=== PATIENT | female | born 1960 | race Caucasian/White ===

== ENCOUNTER 2018-02-02 08:45 | Inpatient (IN) ==
[2018-02-02] MEDS ORDERED: 0.9 % Sodium Chloride 1,000 ML IVC ONE ×3 (08:52→10:55)
--- NOTE | 2018-02-02 09:18 | Emergency Department Note ---
Disposition Clinical Impression: Hypokalemia, Hypomagnesemia Pneumonia Qualifiers: Pneumonia type: due to unspecified organism Laterality: unspecified laterality Lung location: unspecified part of lung Qualified Code(s): J18.9 - Pneumonia, unspecified organism Fever Qualifiers: Fever type: unspecified Qualified Code(s): R50.9 - Fever, unspecified Disposition: Admitted As Inpatient Condition: Fair Fever HPI - General Chief Complaint: ED Fever Stated Complaint: Fever Cancer Pt Time Seen by Provider: 02/02/18 08:51 Source: patient, family Limitations: no limitations Nursing Notes Reviewed: Yes Vital Signs Reviewed: Yes - History of Present Illness HPI Narrative: Patient presents today for evaluation of fever. The patient has a history of melanoma with metastasis. Patient has been undergoing immunotherapy at the [facility] for treatment. Last treatment was earlier in the week. She states that she was told to come to the hospital if she developed fevers. Fever of 101 at home. Patient has also complained of some generalized malice and fatigue. Patient states that she has not had fevers or chills or cough or chest pain or abdominal pain. She has had some mild diarrhea without blood. No nausea or vomiting. Patient has not had cough or productive sputum. Abdomen is soft and nontender. No specific etiology to correlate with fever. She is tachycardic and mildly hypotensive. Fluids have been ordered as well as further blood work and x-ray investigation into etiology. - Related Data Home Medications Medication Instructions Recorded Confirmed Acetaminophen [Tylenol] 325 - 650 mg PO Q4HR PRN 02/02/18 02/02/18 Albuterol Sulfate [Proair Hfa] 1 puff IH Q4H PRN 02/02/18 02/02/18 Budesonide/Formoterol 160/4.5 2 puff IH BIDR 02/02/18 02/02/18 [Symbicort 160/4.5] Calcium Carb, Citrate/Vit D3 1 tab PO DAILY 02/02/18 02/02/18 [Calcium + D3 ER Tablet] Citalopram [CeleXA] 20 mg PO DAILY 02/02/18 02/02/18 Ibuprofen [Ibu] 600 mg PO Q8H PRN 02/02/18 02/02/18 Ipilimumab [Yervoy] 110 ml IV ONCE 02/02/18 02/02/18 Metformin HCl [Metformin HCl] 1,000 mg PO BIDWM 02/02/18 02/02/18 Omeprazole [PriLOSEC] 20 mg PO DAILY 02/02/18 02/02/18 Triamcinolone Acet 0.1% CRM 1 appl TP BID 02/02/18 02/02/18 [Kenalog] Allergies Allergy/AdvReac Type Severity Reaction Status Date / Time No Known Allergies Allergy Verified 02/02/18 10:43 Review of Systems: As Per HPI Constitutional: Reports: fever, weakness Cardiovascular: Denies: chest pain, palpitations Respiratory: Denies: cough, dyspnea Gastrointestinal: Reports: diarrhea. Denies: abdominal pain, nausea Genitourinary: Denies: urgency, dysuria Musculoskeletal: Denies: back pain Integumentary: Denies: rash, abrasion Neurological: Reports: headache (Posterior headache that is tenderness to the left paraspinal cervical muscles) Fever PMH - Past Medical History Medical history: Reports: cancer, diabetes, other Psychiatric history: Reports: no psych history - Social History Smoking Status: Never smoker Alcohol use: Reports: none Drug use: Reports: none Physical Exam General: Well appearing, nontoxic, no acute distress Head: Normocephalic Atraumatic Eyes: PERRL, EOMI ENT: Airway patent, no stridor Neck: supple, no meningismus Chest: Lungs clear to auscultation bilateral Cardiac: Regular rhythm, tachycardia Abdomen: soft, nontender, nondistended; no guarding, rebound, or tenderness to percussion Musculoskeletal: Calves symmetric, nontender, no significant edema. Skin: No rash, normal skin tone Neuro: Alert and Oriented to person, place, and time; No focal deficit, - General Limitations: no limitations General appearance: alert, in no apparent distress Course - Reevaluation(s) Reevaluation #1: Patient reevaluated. Patient stable. No shortness of breath and no chest pain. Patient is on immunosuppressive therapy. Mildly elevated lactate as well as elevated troponin. Diffuse changes on EKG more consistent with loculated abnormality than ACS. Given the nature of the symptoms and fever infectious process rather than ACS is more likely. Heparin has not been started. Recommend trending troponins. Potassium and magnesium replacement have been initiated in the ED. Patient has received fluids as well as broad- spectrum antibiotics, vanc, Zosyn, Levaquin. - Consultations Consultation #1: Discussed with hospitalist. Patient accepted for admission. Vital Signs Temperature 100.5 F H 02/02/18 08:47 Pulse Rate 117 02/02/18 08:47 Respiratory Rate 20 02/02/18 08:47 Blood Pressure 98/60 02/02/18 08:47 O2 Sat by Pulse Oximetry 99 02/02/18 08:47 Temperature 98.6 F 02/02/18 17:49 Pulse Rate 65 02/02/18 17:49 Respiratory Rate 18 02/02/18 17:49 Blood Pressure 103/62 02/02/18 17:49 O2 Sat by Pulse Oximetry 98 02/02/18 17:49 Oxygen Delivery Oxygen Delivery Room Air Fever - Medical Records Medical records reviewed: Yes I reviewed the patient's medical records. - Lab Data Lab results reviewed: Yes I reviewed the patient's lab results. Result diagrams: 02/02/18 09:21 02/02/18 09:21 Lab Results 02/02/18 02/02/18 02/02/18 Range/Units 09:21 09:21 09:21 WBC 5.6 (4.3-11.1) K/mcL RBC 5.64 H (3.82-4.97) M/mcL Hgb 14.4 (11.5-15.4) g/dL Hct 42.2 (35.3-44.9) % MCV 74.8 L (83.0-100.0) fL MCH 25.5 L (28.0-33.3) pg MCHC 34.1 (31.6-35.5) g/dL RDW 17.2 H (11.5-14.5) % Plt Count 101 L (140-400) K/mcL MPV 10.2 (9.4-12.4) fL Immature Gran % 0.7 (0-4) % Seg Neutrophils % 63.7 % Lymphocytes % 25.8 % Monocytes % 8.1 % Eosinophils % 1.3 % Basophils % 0.4 % Neutrophils # 3.6 (1.6-8.9) K/mcL Lymphocytes # 1.4 (0.6-4.6) K/mcL Monocytes # 0.5 (0.0-1.3) K/mcL Eosinophils # 0.1 (0.0-0.6) K/mcL Basophils # 0.0 (0.0-0.2) K/mcL Immature Plt Fraction 5.1 (1.1-6.1) % PT 13.1 H (9.4-12.1) Seconds INR 1.2 Sodium 131 L (136-145) mEq/L Potassium 2.3 L* (3.5-5.1) mEq/L Chloride 93 L (98-107) mEq/L Carbon Dioxide 28 (23-29) mEq/L BUN 6 (6-20) mg/dL Creatinine 0.99 (0.60-1.20) mg/dL Est GFR ( Amer) > 60 (> 60) Est GFR (Non-Af Amer) 58 L (> 60) BUN/Creatinine Ratio 6 (6-26) Glucose 162 H (70-105) mg/dL Est Mean Plasma Glucose mg/dl Hemoglobin A1c ( - 5.6) % Calculated Osmolality 273 L (280-300) Lactic Acid (0.5-2.2) mmol/L Calcium 8.3 L (8.6-10.3) mg/dL Phosphorus 1.1 L (2.7-4.5) mg/dL Magnesium 1.4 L (1.6-2.6) mg/dL Total Bilirubin 1.2 H (0.3-1.0) mg/dL Direct Bilirubin 0.3 H (0.0-0.2) mg/dL Indirect Bilirubin 0.9 (0.0-1.2) mg/dL AST 38 (13-39) Units/L ALT 49 (7-52) Units/L Alkaline Phosphatase 85 (34-104) Units/L Troponin I 0.05 H* (< 0.04) ng/mL Serum Total Protein 6.7 (6.4-8.9) g/dL Albumin 3.7 (3.5-5.7) g/dL Globulin 3.0 (2.4-3.5) g/dL Albumin/Globulin Ratio 1.2 (1.1-2.2) 02/02/18 02/02/18 Range/Units 09:21 09:21 WBC (4.3-11.1) K/mcL RBC (3.82-4.97) M/mcL Hgb (11.5-15.4) g/dL Hct (35.3-44.9) % MCV (83.0-100.0) fL MCH (28.0-33.3) pg MCHC (31.6-35.5) g/dL RDW (11.5-14.5) % Plt Count (140-400) K/mcL MPV (9.4-12.4) fL Immature Gran % (0-4) % Seg Neutrophils % % Lymphocytes % % Monocytes % % Eosinophils % % Basophils % % Neutrophils # (1.6-8.9) K/mcL Lymphocytes # (0.6-4.6) K/mcL Monocytes # (0.0-1.3) K/mcL Eosinophils # (0.0-0.6) K/mcL Basophils # (0.0-0.2) K/mcL Immature Plt Fraction (1.1-6.1) % PT (9.4-12.1) Seconds INR Sodium (136-145) mEq/L Potassium (3.5-5.1) mEq/L Chloride (98-107) mEq/L Carbon Dioxide (23-29) mEq/L BUN (6-20) mg/dL Creatinine (0.60-1.20) mg/dL Est GFR ( Amer) (> 60) Est GFR (Non-Af Amer) (> 60) BUN/Creatinine Ratio (6-26) Glucose (70-105) mg/dL Est Mean Plasma Glucose 166 mg/dl Hemoglobin A1c 7.4 H ( - 5.6) % Calculated Osmolality (280-300) Lactic Acid 2.4 H (0.5-2.2) mmol/L Calcium (8.6-10.3) mg/dL Phosphorus (2.7-4.5) mg/dL Magnesium (1.6-2.6) mg/dL Total Bilirubin (0.3-1.0) mg/dL Direct Bilirubin (0.0-0.2) mg/dL Indirect Bilirubin (0.0-1.2) mg/dL AST (13-39) Units/L ALT (7-52) Units/L Alkaline Phosphatase (34-104) Units/L Troponin I (< 0.04) ng/mL Serum Total Protein (6.4-8.9) g/dL Albumin (3.5-5.7) g/dL Globulin (2.4-3.5) g/dL Albumin/Globulin Ratio (1.1-2.2) - Radiology Data Radiology results reviewed: Yes I reviewed the patient's radiology results. - EKG Data EKG attestation: Yes I reviewed and interpreted this EKG. EKG results narrative: EKG shows diffuse T-wave inversion. EKG shows sinus tachycardia with a rate of 108. MI interval 147. QTC C467. No old EKG at this time. Diffuse changes more likely associated with hypokalemia then ACS. No chest pain.
[2018-02-02 09:30] LABS: Basophils % 0.4 %; Eosinophils # 0.1 K/mcL (0.0-0.6); Eosinophils % 1.3 %; Hematocrit 42.2 % (35.3-44.9); Hemoglobin 14.4 g/dL (11.5-15.4); Immature Granulocytes % 0.7 % (0-4); Immature Platelets 5.1 % (1.1-6.1); Lymphocytes # 1.4 K/mcL (0.6-4.6); Lymphocytes % 25.8 %; Mean Corpuscular HGB Conc 34.1 g/dL (31.6-35.5); Mean Corpuscular Hemoglobin 25.5 pg (28.0-33.3); Mean Corpuscular Volume 74.8 fL (83.0-100.0); Mean Platelet Volume 10.2 fL (9.4-12.4); Monocytes # 0.5 K/mcL (0.0-1.3); Monocytes % 8.1 %; Neutrophils # 3.6 K/mcL (1.6-8.9); Platelet Count 101 K/mcL (140-400); Red Blood Count 5.64 M/mcL (3.82-4.97); Red Cell Distribution Width 17.2 % (11.5-14.5); Segmented Neutrophils % 63.7 %
[2018-02-02 09:34] LABS: INR 1.2; Prothrombin Time 13.1 Seconds (9.4-12.1)
[2018-02-02 09:52] LABS: Troponin I 0.05 ng/mL (< 0.04)
[2018-02-02 10:03] LABS: Alanine Aminotransferase 49 Units/L (7-52); Albumin 3.7 g/dL (3.5-5.7); Albumin/Globulin Ratio 1.2 (1.1-2.2); Alkaline Phosphatase 85 Units/L (34-104); Aspartate Amino Transferase 38 Units/L (13-39); BUN/Creatinine Ratio 6 (6-26); Bilirubin,Direct 0.3 mg/dL (0.0-0.2); Bilirubin,Indirect 0.9 mg/dL (0.0-1.2); Bilirubin,Total 1.2 mg/dL (0.3-1.0); Blood Urea Nitrogen 6 mg/dL (6-20); Calcium 8.3 mg/dL (8.6-10.3); Carbon Dioxide 28 mEq/L (23-29); Chloride 93 mEq/L (98-107); Glucose 162 mg/dL (70-105); Magnesium 1.4 mg/dL (1.6-2.6); Osmolality,Calculated 273 (280-300); Phosphorous 1.1 mg/dL (2.7-4.5); Sodium 131 mEq/L (136-145); Total Protein 6.7 g/dL (6.4-8.9); eGFR For Non-African Americans 58 (> 60)
[2018-02-02 10:07] LABS: Potassium 2.3 mEq/L (3.5-5.1)
[2018-02-02] MEDS ORDERED: Aspirin 325 MG TABLET PO ONE (10:16)
[2018-02-02] MEDS ORDERED: Piperacillin/Tazobactam 3.375 GM in 0.9 % Sodium Chloride Mini Bag 100 ML IVPB ONE (10:18)
[2018-02-02] MEDS ORDERED: Levofloxacin 750 MG/150 ML 750 MG/150 ML BAG IVPB ONE (10:18)
[2018-02-02] MEDS ORDERED: Naloxone 0.4 MG/ML INJ IVP PRN (11:45)
[2018-02-02] MEDS ORDERED: Ibuprofen 400 MG TABLET PO PRN (11:45)
--- NOTE | 2018-02-02 12:07 | Internal Med History&Physical ---
Date of Encounter: 02/02/18 Time of Encounter: 11:20 Internal Medicine - H&P: HPI Chief complaint: Fevers, chills Admitted From: Emergency Dept Plans for Post Hospital Care: Home History of present illness: Ms. Orellana is a 57 year old female patient with a history of melanoma versus immunotherapy with her most recent dose on Monday presented to the ER with fevers and chills. She also has a history of diabetes. She denies any cough or shortness of breath. No chest pain or palpitations. She feels weak and tired. No nausea or vomiting. No abdominal pain. No dysuria. Past Med Surg Social Fam HX - Past Medical History Attestation: Yes The following information was validated with the patient. Source: patient Medical history: cancer (Melanoma), diabetes, other Psychiatric history: no psych history - Past Surgical History Additional surgical history: lymph node biopsy - Social History Smoking Status: Never smoker Smokeless Tobacco Status: No Alcohol use: none Drug use: none - Additional Family History Additional family history: Family history reviewed and found to be noncontributory at this time Internal Medicine - H&P: Meds Acetaminophen [Tylenol] 325 - 650 mg PO Q4HR PRN 02/02/18 [History] Albuterol Sulfate [Proair Hfa] 1 puff IH Q4H PRN 02/02/18 [History] Budesonide/Formoterol 160/4.5 [Symbicort 160/4.5] 2 puff IH BIDR 02/02/18 [ History] Calcium Carb, Citrate/Vit D3 [Calcium + D3 ER Tablet] 1 tab PO DAILY 02/02/18 [ History] Citalopram [CeleXA] 20 mg PO DAILY 02/02/18 [History] Ibuprofen [Ibu] 600 mg PO Q8H PRN 02/02/18 [History] Ipilimumab [Yervoy] 110 ml IV ONCE 02/02/18 [History] Metformin HCl [Metformin HCl] 1,000 mg PO BIDWM 02/02/18 [History] Omeprazole [PriLOSEC] 20 mg PO DAILY 02/02/18 [History] Triamcinolone Acet 0.1% CRM [Kenalog] 1 appl TP BID 02/02/18 [History] 3 Allergy/AdvReac Type Severity Reaction Status Date / Time No Known Allergies Allergy Verified 02/02/18 10:43 All Systems PM: A 10-system review of systems was performed and is negative for pertinent findings except as documented above in the HPI. - Constitutional Constitutional: chills, fatigue, fever(s), malaise - EENT Eyes: no change in vision, no discharge, no pain, no photophobia Ears: no ear discharge, no ear pain, no tinnitus Nose, mouth and throat: no dysphagia, no nasal discharge, no neck pain, no sore throat - Cardiovascular Cardiovascular ROS IM: no chest pain, no diaphoresis, no dyspnea, no lightheadedness, no palpitations, no syncope - Respiratory Respiratory: no cough, no dyspnea, no wheezing, no excessive phlegm production - Gastrointestinal Gastrointestinal: no abdominal pain, no diarrhea, no hematemesis, no hematochezia, no melena, no nausea, no vomiting - Genitourinary Genitourinary: no change in urinary stream, no dysuria, no flank pain, no hematuria Additional comments: Vulvar melanoma - Musculoskeletal Musculoskeletal ROS IM: no numbness, no tingling - Integumentary Integumentary IM: no rash, no unusual bruising - Neurological Neurological ROS: no confusion, no convulsions, no focal weakness, no numbness, no tingling, no tremor(s) - Hematologic/Lymphatic Hematologic/Lymphatic: no easy bruising - Constitutional Vitals: Temp Pulse Resp BP Pulse Ox 98.9 F 98 18 104/47 98 02/02/18 11:03 02/02/18 11:03 02/02/18 11:03 02/02/18 11:03 02/02/18 11:03 General appearance: Present: cooperative, A&O X 3, answers questions appropriately Exam: . - Neck Neck exam general surgery: Present: supple, trachea midline. Absent: lymphadenopathy - Respiratory Respiratory exam: Absent: accessory muscle use, prolonged expiratory phase, rales, rhonchi, wheezes - Cardiovascular Cardiovascular exam: Present: RRR, +S1, +S2, tachycardia. Absent: diastolic murmur, gallop, rubs, systolic murmur - GI/Abdominal GI/Abdominal exam: Present: normal bowel sounds, soft, no peritoneal signs. Absent: distended, tenderness - Extremities Exam Extremities exam: Present: warm, radial pulses palpable and symmetrical. Absent : calf tenderness, cyanotic, pedal edema - Neurological Exam Neurological exam: Present: alert, CN II-XII intact, oriented X3, no focal deficits, strengths equal and symetr throughout. Absent: facial droop, speech deficit - Skin Skin exam: Present: dry, intact Internal Med - H&P Results - Labs CBC & Chem 7: 02/02/18 09:21 02/02/18 09:21 - Impressions Impressions Chest X-Ray 02/02/18 08:52 IMPRESSION: Suspected right lower lobe pneumonia. Follow-up imaging is recommended after treatment to ensure resolution. D/ / Alvarez Moran MD / Alvarez Moran MD Interpreting Provider: Alvarez Moran MD - Assessment and plan (1) Sepsis Current Visit: Yes Status: Suspected Assessment and plan: Patient with sepsis related to right lower lobe pneumonia. We will treat with IV antibiotics. Follow blood cultures. Patient does not have an elevated WBC count most likely related to recent immunotherapy. She continues to have fevers. Will treat symptomatically. High risk for complications. Qualifiers: Sepsis type: Pneumococcus Qualified Code(s): A40.3 - Sepsis due to Streptococcus pneumoniae (2) Malignant melanoma Current Visit: Yes Status: Acute Assessment and plan: Of vulvar region with metastases to the lymph nodes. Receiving immunotherapy at [facility]. Follow-up outpatient after discharge. Qualifiers: Melanoma location: unspecified site Qualified Code(s): C43.9 - Malignant melanoma of skin, unspecified (3) Diabetes mellitus Current Visit: Yes Status: Chronic Assessment and plan: Monitor blood sugars. Place patient on diabetic diet and sliding scale insulin. Qualifiers: Diabetes mellitus type: type 2 Diabetes mellitus chcf insulin use: without chcf use Diabetes mellitus complication status: without complication Qualified Code(s): E11.9 - Type 2 diabetes mellitus without complications (4) Pneumonia Current Visit: Yes Status: Suspected Assessment and plan: Continue IV antibiotics. Patient will be on broad-spectrum antibiotics due to underlying cancer and frequent healthcare visits. Follow blood culture results. Check urine Legionella and streptococcal antigens. DVT prophylaxis with subcutaneous heparin. Qualifiers: Pneumonia type: due to Pneumococcus Laterality: left Lung location: lower lobe of lung Qualified Code(s): J13 - Pneumonia due to Streptococcus pneumoniae (5) Hypokalemia Current Visit: Yes Status: Acute Assessment and plan: Will replete. - Time Spent With Patient Total time spent is greater than 50% in coordination of care (as documented) at patient's floor/unit and/or counseling patient:
[2018-02-02] MEDS: Levofloxacin 750 MG/150 ML 750 MG/150 ML BAG IVPB SCH (13:14)
[2018-02-02] MEDS ORDERED: D5% in Water 1,000 ML IVC PRN (14:13)
[2018-02-02] MEDS ORDERED: Dextrose Gel 15 GM/37.5 ML TUBE PO PRN ×2 (14:13)
[2018-02-02 14:41] LABS: Estimated Average Glucose 166 mg/dl; Hemoglobin A1C 7.4 %
[2018-02-02] MEDS: 0.9 % Sodium Chloride w KCl 40 MEQ/1,000 ML MLS IVC SCH (15:24)
[2018-02-02] MEDS: Piperacillin/Tazobactam 3.375 GM in 0.9 % Sodium Chloride Mini Bag 100 ML IVPB SCH (16:31)
[2018-02-02] MEDS: Insulin LISPRO 300 UNITS/3 ML VIAL SQ SCH ×2 (16:32→21:17)
[2018-02-02] MEDS: *HR* Heparin 5,000 UNIT/ML VIAL SQ SCH (16:59)
[2018-02-02 17:00] LABS: Adenovirus F 40/41 PCR Not detected (Not detect); Astrovirus PCR Not detected (Not detect); C.difficile Toxin A/B by PCR Not detected (Not detect); Campylobacter by PCR Not detected (Not detect); Cryptosporidium by PCR Not detected (Not detect); Cyclospora cayetanensis PCR Not detected (Not detect); E. coli O157 by PCR Not detected (Not detect); Entamoeba histolytica PCR Not detected (Not detect); Enteroaggregative E.coli(EAEC) Not detected (Not detect); Enteropathogenic E.coli(EPEC) Not detected (Not detect); Enterotoxigenic E.coli (ETEC) Not detected (Not detect); Giardia lamblia PCR Not detected (Not detect); Norovirus GI/GII PCR Not detected (Not detect); Plesiomonas shigelloides PCR Not detected (Not detect); Rotavirus A PCR Not detected (Not detect); Salmonella PCR Not detected (Not detect); Sapovirus PCR Not detected (Not detect); Shig/EnteroinvasiveE coli EIEC Not detected (Not detect); Shigalike tox-prod E coli STEC Not detected (Not detect); Vibrio PCR Not detected (Not detect); Vibrio cholerae PCR Not detected (Not detect); Yersinia enterocolitica PCR Not detected (Not detect)
[2018-02-02] MEDS: Acetaminophen 325 MG TABLET PO PRN (20:12)
[2018-02-02 22:53] LABS: Bilirubin,Urine Negative (Negative); Blood,Urine Negative (Negative); Clarity,Urine Clear (Clear); Color,Urine Yellow (Yellow); Glucose,Urine (UA) Normal (Normal); Ketones,Urine Negative (Negative); Leukocyte Esterase,Urine Negative (Negative); Nitrite,Urine Negative (Negative); Protein,Urine Negative (Neg-Trace); Specific Gravity,Urine 1.018 (1.010-1.025); Urobilinogen,Urine Normal (Normal)
[2018-02-03] MEDS: Piperacillin/Tazobactam 3.375 GM in 0.9 % Sodium Chloride Mini Bag 100 ML IVPB SCH ×3 (00:32→17:03)
[2018-02-03] MEDS ORDERED: 0.9 % Sodium Chloride 1,000 ML ONE (00:56)
[2018-02-03] MEDS ORDERED: 0.9 % Sodium Chloride 1,000 ML IVC ONE (01:16)
[2018-02-03] MEDS: 0.9 % Sodium Chloride w KCl 40 MEQ/1,000 ML MLS IVC SCH (02:43)
[2018-02-03 02:59] LABS: Monocytes % 9.2 %; Red Cell Distribution Width 17.4 % (11.5-14.5)
[2018-02-03 03:01] LABS: Eosinophils # 0.1 K/mcL (0.0-0.6); Eosinophils % 2.2 %; Hemoglobin 10.6 g/dL (11.5-15.4); Immature Granulocytes % 1.1 % (0-4); Immature Platelets 3.4 % (1.1-6.1); Lymphocytes # 0.5 K/mcL (0.6-4.6); Lymphocytes % 13.7 %; Mean Corpuscular HGB Conc 33.1 g/dL (31.6-35.5); Mean Corpuscular Hemoglobin 25.4 pg (28.0-33.3); Mean Corpuscular Volume 76.7 fL (83.0-100.0); Mean Platelet Volume 10.1 fL (9.4-12.4); Monocytes # 0.3 K/mcL (0.0-1.3); Red Blood Count 4.17 M/mcL (3.82-4.97); Segmented Neutrophils % 73.8 %
[2018-02-03] MEDS ORDERED: 0.9 % Sodium Chloride 500 ML IVC ONE (03:15)
--- NOTE | 2018-02-03 03:19 | Event Note ---
Date of Encounter: 02/03/18 Time of Encounter: 03:14 Called to reassess patient for sepsis. I saw patient earlier at RN request. Patient spiked a fever and her BP dropped to the 70's earlier. She responded to a fluid bolus of 1 L NS. When I last saw her, her BP was 116/84. She was well perfused at that time. I was called again a few minutes ago with low BP down to the 70/40's. Currently, she is 84/50. I ordered 500 cc NS bolus and am moving her to ICU for CVC placement and pressor support. PER RN, she has had little UOP since admission. I discussed with patient and daughter. They are agreeable with plan.
[2018-02-03 03:25] LABS: Neutrophils # 2.7 K/mcL (1.6-8.9); Platelet Count 74 K/mcL (140-400)
[2018-02-03 03:32] LABS: Platelet Estimate Slight Decrease (Normal)
[2018-02-03 04:35] LABS: BUN/Creatinine Ratio 4 (6-26); Blood Urea Nitrogen 4 mg/dL (6-20); Carbon Dioxide 19 mEq/L (23-29); Chloride 111 mEq/L (98-107); Glucose 104 mg/dL (70-105); Osmolality,Calculated 285 (280-300); Potassium 2.9 mEq/L (3.5-5.1); Sodium 139 mEq/L (136-145); eGFR For Non-African Americans > 60 (> 60)
--- NOTE | 2018-02-03 04:38 | Procedure Note ---
<Ezequiel Hunt - Last Filed: 02/03/18 04:34> Date of procedure: 02/03/18 Pre-op diagnosis: Septic shock Post-op diagnosis: same Procedure: Procedure Note: Central Venous Catheter Insertion Indication: Septic shock Attending Physician: Henry Causey Indication: This is a 57 year-old woman with hypotension due to sepsis related to a right middle lobe pneumonia. Consent: Detailed explanation of the procedure, treatment options, risks including but not limited to infection and bleeding, and benefits were explained to the patient and the patient's daughter. A written informed consent was obtained. Technique: A time out was preformed identifying the correct procedure, the correct location with the nursing staff. The right groin was prepped with 2% chlorhexidine and draped with a full length sterile sheet in the usual fashion. The right femoral vein was accessed under ultrasound guidance with an 18 gauge thin wall needle. A triple lumen was inserted via the seldinger technique. Blood was withdrawn from all lumens and flushed with normal saline. The catheter was sutured in place and a sterile dressing was applied over the site prior to removal of drapes. The patient tolerated the procedure well and there were no complications. EBL: 5mL Complication: None Surgeon: Ezequiel Hunt Was there an diet assistant present: Yes Enterprise Application Administrator: Kip Parekh Estimated blood loss (cc): 5 Specimen: n/a Pathology: none sent Condition: stable Disposition: ICU <Henry Causey - Last Filed: 02/03/18 05:47> Procedure: I requested the CVC be placed by Dr. Hunt for treatment of sepsis. I was present during the entire procedure, witnessed and supervised the procedure. Dr. Hunt performed the procedure skillfully without any difficulty and patient tolerated procedure well.
[2018-02-03] MEDS ORDERED: Norepinephrine 4 MG in D5% in Water 250 ML IVC SCH (04:45)
[2018-02-03 05:16] LABS: BUN/Creatinine Ratio 4 (6-26); Blood Urea Nitrogen 4 mg/dL (6-20); Calcium 6.8 mg/dL (8.6-10.3); Carbon Dioxide 18 mEq/L (23-29); Chloride 113 mEq/L (98-107); Glucose 114 mg/dL (70-105); Osmolality,Calculated 286 (280-300); Potassium 3.2 mEq/L (3.5-5.1); Sodium 139 mEq/L (136-145); eGFR For Non-African Americans 59 (> 60)
[2018-02-03] MEDS ORDERED: Potassium Phosphate 44 MEQ in 0.9 % Sodium Chloride 250 ML IVPB PRN (06:05)
[2018-02-03] MEDS: *HR* Heparin 5,000 UNIT/ML VIAL SQ SCH (06:07)
[2018-02-03] MEDS: Potassium Chloride 40 MEQ/200 ML BAG IVPB PRN ×2 (06:33→07:38)
[2018-02-03 06:42] LABS: Phosphorous 1.5 mg/dL (2.7-4.5)
[2018-02-03 06:45] LABS: VBG Ionized Calcium 1.05 mmol/L (1.15-1.35)
--- NOTE | 2018-02-03 09:29 | Electrocardiograph Report ---
[address] [place], [place] [address] Test Date: 2018-02-02 Pat Name: Abril Orellana Department: [id number] Room: [facility] Gender: Service Coordinator: : 1960 Requested By: [id number] Order Number: [id number] Reading MD: Lucas Clemons Measurements Intervals [place] Rate: 108 P: 63 CA: 147 QRS: 56 QRSD: 79 T: 247 QT: 348 QTc: 467 Interpretive Statements Sinus tachycardia Anterolateral and inferior ST-T changes suggests ischemia Electronically Signed On 02-03-2018 9:28:05 EDT by Lucas Clemons
[2018-02-03] MEDS: Insulin LISPRO 300 UNITS/3 ML VIAL SQ SCH ×4 (09:36→21:00)
[2018-02-03] MEDS ORDERED: Ondansetron 4 MG/2 ML VIAL ONE (10:06)
[2018-02-03] MEDS: Ringers Solution, Lactated 1,000 ML IVC SCH (10:08)
[2018-02-03] MEDS: Ondansetron 4 MG/2 ML VIAL IVP PRN ×2 (10:44→21:17)
--- NOTE | 2018-02-03 11:36 | Oncology Inp Consult Note ---
Date of Encounter: 02/03/18 Time of Encounter: 12:00 Assessment and Plan (1) Malignant melanoma Status: Acute Assessment and plan: Of the labia status post surgery, adjuvant therapy upon progression patient is receiving yervoy/nivolumab at [facility], s/p wk4 of Yervoy last monday. She was previously treated with adjuvant whole absence of late last year. She is noted to have progression according to [facility] with lymphadenopathy in CT imaging. She is scheduled for 4th wk next Monday. Ct imaging was planned after that to assess response, per patient. Qualifiers: Melanoma location: unspecified site Qualified Code(s): C43.9 - Malignant melanoma of skin, unspecified (2) Diarrhea Status: Acute Assessment and plan: Loose bowel movements, nonbloody, patient was needing pressors due to dehydration and possible infection, stool culture, C. difficile to be sent. Since she is off pressors and clinically stable we will monitor her. If this should get worse we will start her on steroid dose. Plan d/w patient and her family who understands risk benefits of treatment. Qualifiers: Diarrhea type: unspecified type Qualified Code(s): R19.7 - Diarrhea, unspecified (3) Pneumonia Status: Acute Assessment and plan: RLL pneumonia, continue antibiotics for pneumonia, possible sepsis Qualifiers: Pneumonia type: due to unspecified organism Laterality: unspecified laterality Lung location: unspecified part of lung Qualified Code(s): J18.9 - Pneumonia, unspecified organism (4) Pancytopenia Problem details: Possibly sec to fever, infection/sepsis, demargination. Status: Acute - Data of Consult Requesting Physician: Fabi Mata MD Primary Care Provider: Leta Akins MD - Consult Narrative Reason for consult: melanoma History of present illness: Ms. Orellana is a 57 year old female with a history of malignant melanoma of the labia, diagnosed during [facility] exam October 2015. She underwent a bilateral vulvectomy number of 2016 with left lymph node in the groin excised by Dr. Veronika Elizondo, pathology showing 3.2 x 3.1 x 2.2 cm, 0/[address], positive ulceration, mitotic count 20/mm2. She underwent adjuvant nivolumab until 12/27, according to [facility] records. Per patient she had some evidence of progression in the CT scan and a treatment was changed to include wkly Yervoy, s /p wk 3 last Monday. [facility] records she had prior episodes of diarrhea. Patient reports that since she had fever, malaise, possible dehydration from diarrhea. No cough expectoration. Chest x-ray showed right lower lobe pneumonia she is started on antibiotics Zosyn, vancomycin, levofloxacin. Patient denies any abdominal pain she denies any blood in stools. Due to hypotension patient was in the intensive care unit she was on pressors, currently off, Oncconsulted for possible immunotherapy side effect diary and need for steroids. Past Med Surg Social Fam HX - Past Medical History Medical history: cancer, diabetes, other Additional medical history: melonoma, low platlets Psychiatric history: no psych history - Past Surgical History Additional surgical history: lymph node biopsy - Social History Smoking Status: Never smoker Smokeless Tobacco Status: No Alcohol use: none Drug use: none Medications and Allergies Acetaminophen [Tylenol] 325 - 650 mg PO Q4HR PRN 02/02/18 [History] Albuterol Sulfate [Proair Hfa] 1 puff IH Q4H PRN 02/02/18 [History] Budesonide/Formoterol 160/4.5 [Symbicort 160/4.5] 2 puff IH BIDR 02/02/18 [ History] Calcium Carb, Citrate/Vit D3 [Calcium + D3 ER Tablet] 1 tab PO DAILY 02/02/18 [ History] Citalopram [CeleXA] 20 mg PO DAILY 02/02/18 [History] Ibuprofen [Ibu] 600 mg PO Q8H PRN 02/02/18 [History] Ipilimumab [Yervoy] 110 ml IV ONCE 02/02/18 [History] Metformin HCl [Metformin HCl] 1,000 mg PO BIDWM 02/02/18 [History] Omeprazole [PriLOSEC] 20 mg PO DAILY 02/02/18 [History] Triamcinolone Acet 0.1% CRM [Kenalog] 1 appl TP BID 02/02/18 [History] 3 Allergy/AdvReac Type Severity Reaction Status Date / Time No Known Allergies Allergy Verified 02/02/18 10:43 Review of systems: as in HPI Oncology - Exam - Constitutional Vitals: Temp Pulse Resp BP Pulse Ox 98.0 F 86 15 101/43 100 02/03/18 08:00 02/03/18 09:00 02/03/18 09:00 02/03/18 09:00 02/03/18 09:00 General appearance: no acute distress - Head Head exam: Present: atraumatic, normal inspection - Eye Eye exam: Present: sclera anicteric - ENT ENT exam: Present: mucous membranes moist - Respiratory Respiratory exam: Present: CTAB - Cardiovascular Cardiovascular exam: Present: +S1, +S2 - GI/Abdominal GI/Abdominal exam: Present: normal bowel sounds, soft - Extremities Exam Extremities exam: Present: normal inspection - Neurological Exam Neurological exam: Present: alert, CN II-XII intact, oriented X3 - Psychiatric Psychiatric exam: Present: normal affect - Skin Skin exam: Present: dry, normal color Oncology - Results Labs: 3 02/03/18 02/03/18 02/03/18 06:42 04:00 03:56 WBC RBC Hgb Hct MCV MCH MCHC RDW Plt Count MPV Immature Gran % Seg Neutrophils % Lymphocytes % Monocytes % Eosinophils % Basophils % Neutrophils # Lymphocytes # Monocytes # Eosinophils # Basophils # Platelet Estimate Immature Plt Fraction Sodium 139 Potassium 3.2 L Chloride 113 H Carbon Dioxide 18 L BUN 4 L Creatinine 0.97 Est GFR ( Amer) > 60 Est GFR (Non-Af Amer) 59 L BUN/Creatinine Ratio 4 L Glucose 114 H POC Glucose 106 H Calculated Osmolality 286 Lactic Acid Calcium 6.8 L Venous Ioniz Calcium 1.05 L Phosphorus Urine Color Urine Clarity Urine pH Ur Specific [place] Urine Protein Urine Glucose (UA) Urine Ketones Urine Blood Urine Nitrite Urine Bilirubin Urine Urobilinogen Ur Leukocyte Esterase Ur Culture Indicated? Stl C. cayetanensis PCR Stool Rotavirus A PCR Stl Adenov F 40/41 PCR Stool Astrovirus (PCR) Stool Campylobacter PCR Stl C. diff Tox A/B PCR Stool Cryptosporidium PCR Stl Sh Tox Pr E STEC PCR Stool E coli O157 PCR Stl Enterotoxigenic E PCR Stool EPEC (PCR) Stool EAEC (PCR) Stl E. histolytica PCR Stool Giardia Lamblia PCR Stool Salmonella PCR Stool Sapovirus (PCR) Stl P. shigelloides PCR Stl Shigella/EIEC PCR St Y.enterocolitica PCR Stool Vibrio (PCR) Stl Vibrio cholerae PCR Stl Norovirus GI/GII PCR Stl GI Panel (PCR) Com 3 02/03/18 02/03/18 02/03/18 02:48 02:46 02:46 WBC 3.6 L RBC 4.17 Hgb 10.6 L D Hct 32.0 L MCV 76.7 L MCH 25.4 L MCHC 33.1 RDW 17.4 H Plt Count 74 L MPV 10.1 Immature Gran % 1.1 Seg Neutrophils % 73.8 Lymphocytes % 13.7 Monocytes % 9.2 Eosinophils % 2.2 Basophils % 0.0 Neutrophils # 2.7 Lymphocytes # 0.5 L Monocytes # 0.3 Eosinophils # 0.1 Basophils # 0.0 Platelet Estimate Slight Decrease L Immature Plt Fraction 3.4 Sodium 139 Potassium 2.9 L D Chloride 111 H Carbon Dioxide 19 L BUN 4 L Creatinine 0.94 Est GFR ( Amer) > 60 Est GFR (Non-Af Amer) > 60 BUN/Creatinine Ratio 4 L Glucose 104 POC Glucose Calculated Osmolality 285 Lactic Acid 0.8 Calcium 7.0 L Venous Ioniz Calcium Phosphorus 1.5 L Urine Color Urine Clarity Urine pH Ur Specific [place] Urine Protein Urine Glucose (UA) Urine Ketones Urine Blood Urine Nitrite Urine Bilirubin Urine Urobilinogen Ur Leukocyte Esterase Ur Culture Indicated? Stl C. cayetanensis PCR Stool Rotavirus A PCR Stl Adenov F 40/41 PCR Stool Astrovirus (PCR) Stool Campylobacter PCR Stl C. diff Tox A/B PCR Stool Cryptosporidium PCR Stl Sh Tox Pr E STEC PCR Stool E coli O157 PCR Stl Enterotoxigenic E PCR Stool EPEC (PCR) Stool EAEC (PCR) Stl E. histolytica PCR Stool Giardia Lamblia PCR Stool Salmonella PCR Stool Sapovirus (PCR) Stl P. shigelloides PCR Stl Shigella/EIEC PCR St Y.enterocolitica PCR Stool Vibrio (PCR) Stl Vibrio cholerae PCR Stl Norovirus GI/GII PCR Stl GI Panel (PCR) Com 3 02/02/18 02/02/18 02/02/18 22:40 20:03 15:29 WBC RBC Hgb Hct MCV MCH MCHC RDW Plt Count MPV Immature Gran % Seg Neutrophils % Lymphocytes % Monocytes % Eosinophils % Basophils % Neutrophils # Lymphocytes # Monocytes # Eosinophils # Basophils # Platelet Estimate Immature Plt Fraction Sodium Potassium Chloride Carbon Dioxide BUN Creatinine Est GFR ( Amer) Est GFR (Non-Af Amer) BUN/Creatinine Ratio Glucose POC Glucose Calculated Osmolality Lactic Acid 3.0 H Calcium Venous Ioniz Calcium Phosphorus Urine Color Yellow Urine Clarity Clear Urine pH 6.0 Ur Specific [place] 1.018 Urine Protein Negative Urine Glucose (UA) Normal Urine Ketones Negative Urine Blood Negative Urine Nitrite Negative Urine Bilirubin Negative Urine Urobilinogen Normal Ur Leukocyte Esterase Negative Ur Culture Indicated? NO Stl C. cayetanensis PCR Not detected Stool Rotavirus A PCR Not detected Stl Adenov F 40/41 PCR Not detected Stool Astrovirus (PCR) Not detected Stool Campylobacter PCR Not detected Stl C. diff Tox A/B PCR Not detected Stool Cryptosporidium PCR Not detected Stl Sh Tox Pr E STEC PCR Not detected Stool E coli O157 PCR Not detected Stl Enterotoxigenic E PCR Not detected Stool EPEC (PCR) Not detected Stool EAEC (PCR) Not detected Stl E. histolytica PCR Not detected Stool Giardia Lamblia PCR Not detected Stool Salmonella PCR Not detected Stool Sapovirus (PCR) Not detected Stl P. shigelloides PCR Not detected Stl Shigella/EIEC PCR Not detected St Y.enterocolitica PCR Not detected Stool Vibrio (PCR) Not detected Stl Vibrio cholerae PCR Not detected Stl Norovirus GI/GII PCR Not detected Stl GI Panel (PCR) Com See below Consult Discharge Plan - Plan Referrals: Leta Akins MD [Primary Care Provider] -
[2018-02-03] MEDS: Levofloxacin 750 MG/150 ML 750 MG/150 ML BAG IVPB SCH (14:39)
[2018-02-03] MEDS: Acetaminophen 325 MG TABLET PO PRN (15:10)
--- NOTE | 2018-02-03 17:17 | Internal Med Progress Note ---
Hospitalist Progress Note - Encounter Date of Encounter: 02/03/18 Time of Encounter: 08:15 - Subjective Interval History: Reports feeling better. Noted to have fever spikes overnight along with low blood pressure, transferred to ICU for closer monitoring, received femoral central line. Currently denies chest pain, shortness of breath, palpitations, vomiting, abdominal pain/cramping. Does have watery nonbloody diarrhea. - Exam Vitals: Temp Pulse Resp BP Pulse Ox 98.0 F 102 16 94/59 97 02/03/18 16:46 02/03/18 16:46 02/03/18 16:46 02/03/18 16:46 02/03/18 16:46 Exam: General: Well-developed female lying comfortably in bed in no acute distress Skin: Warm and supple Chest: Normal thoracic expansion. Normal breath sounds. Clear to auscultation. Heart: Normal S1 & S2; rhythmic. No rubs or murmurs. Abdomen: Non-distended, soft and nontender Extremities: No clubbing, cyanosis or edema. No calf tenderness. Normal distal pulses. Full ROM Neurological: Awake, alert and oriented to person, place and time. No focal deficits. Psych: Affect appropriate. - Assessment and Plan (1) Pneumonia Current Visit: Yes Status: Acute Assessment and Plan: Chest x-ray reviewed independently-shows small right basilar infiltrate. Continue broad-spectrum IV antibiotics-IV Levaquin, Zosyn and vancomycin. Follow-up final cultures. Preliminary blood cultures negative. Urine streptococcal and legionella antigen negative. Supportive care and supplemental oxygen. (2) Hypokalemia Current Visit: Yes Status: Acute Assessment and Plan: Supplement with oral and IV potassium chloride and phosphate. She is noted to have hypokalemia anemia and hypophosphatemia. (3) Sepsis Current Visit: Yes Status: Suspected Assessment and Plan: Patient presents with fever, tachycardia, leukopenia. Possible source of infection is pneumonia. Patient does have diarrhea, stool GI panel negative. Continue to monitor for clinical worsening and consisted steroids due to treatment with immunotherapy. Patient was never started on vasopressors although she did not receive a central line last night. Case discussed with oncology. (4) Malignant melanoma Current Visit: Yes Status: Chronic Assessment and Plan: Of labia/vulva; status post surgery. Currently on immunotherapy with Nevolumab and Ipilimumab; follows with [facility] as outpatient; Oncology consult appreciated; patient at risk for invasive diarrhea and GI symptoms due to immunotherapy, but currently improving; continue to monitor; (5) Diabetes mellitus Current Visit: Yes Status: Chronic Assessment and Plan: Blood sugars noted to be well controlled. Hold oral hypoglycemics while in the hospital. Continue Accu-Chek blood glucose monitoring with sliding scale insulin if needed. Diabetic diet. - Time Spent with Patient Total time spent is greater than 50% in coordination of care (as documented) at patient's floor/unit and/or counseling patient: Plan of Care Discussed with: patient Internal Medicine: Result - Labs CBC & Chem 7: 02/03/18 02:48 02/03/18 04:00 Labs: Short CBC 02/03/18 Range/Units 02:48 WBC 3.6 L (4.3-11.1) K/mcL Hgb 10.6 L D (11.5-15.4) g/dL Hct 32.0 L (35.3-44.9) % Plt Count 74 L (140-400) K/mcL Neutrophils # 2.7 (1.6-8.9) K/mcL BMP 02/03/18 02/03/18 02:46 04:00 Sodium 139 139 Potassium 2.9 L D 3.2 L Chloride 111 H 113 H Carbon Dioxide 19 L 18 L BUN 4 L 4 L Creatinine 0.94 0.97 Glucose 104 114 H Calcium 7.0 L 6.8 L Urine 02/02/18 Range/Units 22:40 Urine Color Yellow (Yellow) Urine Clarity Clear (Clear) Urine pH 6.0 (5.0-8.0) pH Units Ur Specific [place] 1.018 (1.010-1.025) Urine Protein Negative (Neg-Trace) mg/dL Urine Glucose (UA) Normal (Normal) mg/dL - ABG Interpretation ABG results: PT/INR, D-dimer PT 13.1 Seconds (9.4-12.1) H 02/02/18 09:21 Consult Discharge Plan - Plan Referrals: Leta Akins MD [Primary Care Provider] - (1) Pneumonia Qualifiers: Pneumonia type: due to unspecified organism Laterality: right Lung location : lower lobe of lung Qualified Code(s): J18.1 - Lobar pneumonia, unspecified organism (3) Sepsis Qualifiers: Sepsis type: sepsis due to unspecified organism Qualified Code(s): A41.9 - Sepsis, unspecified organism (4) Malignant melanoma Qualifiers: Melanoma location: unspecified site Qualified Code(s): C43.9 - Malignant melanoma of skin, unspecified (5) Diabetes mellitus Qualifiers: Diabetes mellitus type: type 2 Diabetes mellitus assisted insulin use: without assisted use Diabetes mellitus complication status: without complication Qualified Code(s): E11.9 - Type 2 diabetes mellitus without complications
[2018-02-03] MEDS ORDERED: Potassium Chloride Elixir 20 MEQ/15 ML UDC PO ONE (20:22)
[2018-02-03] MEDS ORDERED: Potassium Phosphate 44 MEQ in 0.9 % Sodium Chloride 250 ML IVPB ONE (20:22)
[2018-02-04] MEDS: Piperacillin/Tazobactam 3.375 GM in 0.9 % Sodium Chloride Mini Bag 100 ML IVPB SCH ×2 (01:00→08:12)
[2018-02-04] MEDS: Ringers Solution, Lactated 1,000 ML IVC SCH (03:04)
[2018-02-04] MEDS: Acetaminophen 325 MG TABLET PO PRN ×3 (03:10→21:38)
[2018-02-04 03:59] LABS: Basophils % 0.3 %; Eosinophils # 0.1 K/mcL (0.0-0.6); Eosinophils % 3.4 %; Hematocrit 30.1 % (35.3-44.9); Hemoglobin 10.1 g/dL (11.5-15.4); Immature Granulocytes % 0.6 % (0-4); Lymphocytes # 0.7 K/mcL (0.6-4.6); Lymphocytes % 22.4 %; Mean Corpuscular HGB Conc 33.6 g/dL (31.6-35.5); Mean Corpuscular Hemoglobin 25.5 pg (28.0-33.3); Mean Platelet Volume 10.3 fL (9.4-12.4); Monocytes # 0.3 K/mcL (0.0-1.3); Neutrophils # 2.1 K/mcL (1.6-8.9); Red Blood Count 3.96 M/mcL (3.82-4.97); Red Cell Distribution Width 18.5 % (11.5-14.5); Segmented Neutrophils % 64.3 %
[2018-02-04 04:00] LABS: Platelet Count 86 K/mcL (140-400)
[2018-02-04 04:14] LABS: Magnesium 1.2 mg/dL (1.6-2.6); Phosphorous 4.4 mg/dL (2.7-4.5); Potassium 3.3 mEq/L (3.5-5.1)
[2018-02-04 04:25] LABS: Platelet Estimate Slight Decrease (Normal)
[2018-02-04] MEDS: Insulin LISPRO 300 UNITS/3 ML VIAL SQ SCH ×4 (07:30→22:38)
[2018-02-04] MEDS ORDERED: Aminoglycoside Consult 1 EACH MC ONE (07:35)
[2018-02-04] MEDS: Ondansetron 4 MG/2 ML VIAL IVP PRN ×2 (08:28→18:00)
[2018-02-04] MEDS ORDERED: Sodium Bicarbonate 75 MEQ in 0.45 % Sodium Chloride 1,000 ML IVC SCH (10:30)
--- NOTE | 2018-02-04 12:48 | Internal Med Progress Note ---
Hospitalist Progress Note - Encounter Date of Encounter: 02/04/18 Time of Encounter: 08:45 - Subjective Interval History: Feels better; has nausea and nonbilious watery vomiting now after receiving potassium tablets; had fever spike overnight; continues to have nonbloody diarrhea; no abdominal pain, dyspnea, chest pain, cough; - Exam Vitals: Temp Pulse Resp BP Pulse Ox 100.0 F H 98 18 106/66 100 02/04/18 11:20 02/04/18 11:20 02/04/18 11:20 02/04/18 11:20 02/04/18 11:20 Exam: General: Well-developed female lying comfortably in bed in mild distress Skin: Warm and supple Chest: Normal thoracic expansion. Normal breath sounds. Clear to auscultation. Heart: Normal S1 & S2; rhythmic. No rubs or murmurs. Abdomen: Non-distended, soft and nontender Extremities: No clubbing, cyanosis or edema. No calf tenderness. Normal distal pulses. Full ROM Neurological: Awake, alert and oriented to person, place and time. No focal deficits. Psych: Affect appropriate. - Assessment and Plan (1) DINAH (acute kidney injury) Current Visit: Yes Status: Acute Assessment and Plan: baseline serum creatinine noted to be normal; worsened to 1.7 today; could be prerenal azotemia due to diarrhea and dehydration vs nephrotoxicity from antibiotics/immune-mediated from immunotherapy; also associated with NAGMA, will change IV fluids to bicarbonate drip; hold Vancomycin and Zosyn; monitor serum creatinine closely; (2) Pneumonia Current Visit: Yes Status: Acute Assessment and Plan: Chest x-ray reviewed independently-shows small right basilar infiltrate. Preliminary blood cultures negative. Urine streptococcal and legionella antigen negative. Will discontinue Vancomycin and Zosyn, continue IV Levaquin; Supportive care and supplemental oxygen. (3) Hypokalemia Current Visit: Yes Status: Acute Assessment and Plan: Supplement with oral potassium chloride; improved hypophosphatemia; (4) Sepsis Current Visit: Yes Status: Suspected Assessment and Plan: Patient presents with fever, tachycardia, leukopenia. Possible source of infection is pneumonia. Patient does have diarrhea, stool GI panel negative. (5) Malignant melanoma Current Visit: Yes Status: Chronic Assessment and Plan: Of labia/vulva; status post surgery. Currently on immunotherapy with Nevolumab and Ipilimumab; follows with [facility] as outpatient; Oncology consult appreciated; patient at risk for invasive diarrhea and GI symptoms due to immunotherapy, but currently improving; continue to monitor; (6) Diabetes mellitus Current Visit: Yes Status: Chronic Assessment and Plan: Blood sugars noted to be well controlled. Hold oral hypoglycemics while in the hospital. Continue Accu-Chek blood glucose monitoring with sliding scale insulin if needed. Diabetic diet. - Time Spent with Patient Total time spent is greater than 50% in coordination of care (as documented) at patient's floor/unit and/or counseling patient: Internal Medicine: Result - Labs CBC & Chem 7: 02/04/18 03:20 02/04/18 03:20 Labs: Short CBC 02/04/18 Range/Units 03:20 WBC 3.2 L (4.3-11.1) K/mcL Hgb 10.1 L (11.5-15.4) g/dL Hct 30.1 L (35.3-44.9) % Plt Count 86 L (140-400) K/mcL Neutrophils # 2.1 (1.6-8.9) K/mcL BMP 02/03/18 02/04/18 17:43 03:20 Sodium 136 Potassium 3.0 L 3.3 L Chloride 109 H Carbon Dioxide 16 L BUN 5 L Creatinine 1.77 H Glucose 90 Calcium 7.0 L - ABG Interpretation ABG results: PT/INR, D-dimer PT 13.1 Seconds (9.4-12.1) H 02/02/18 09:21 - VTE Documentation of Mechanical Device: Intermittent pneumatic compression device Consult Discharge Plan - Plan Referrals: Leta Akins MD [Primary Care Provider] - (2) Pneumonia Qualifiers: Pneumonia type: due to unspecified organism Laterality: right Lung location : lower lobe of lung Qualified Code(s): J18.1 - Lobar pneumonia, unspecified organism (4) Sepsis Qualifiers: Sepsis type: sepsis due to unspecified organism Qualified Code(s): A41.9 - Sepsis, unspecified organism (5) Malignant melanoma Qualifiers: Melanoma location: unspecified site Qualified Code(s): C43.9 - Malignant melanoma of skin, unspecified (6) Diabetes mellitus Qualifiers: Diabetes mellitus type: type 2 Diabetes mellitus implementation coordinator insulin use: without implementation coordinator use Diabetes mellitus complication status: without complication Qualified Code(s): E11.9 - Type 2 diabetes mellitus without complications
[2018-02-04] MEDS: Levofloxacin 750 MG/150 ML 750 MG/150 ML BAG IVPB SCH (13:22)
[2018-02-04] MEDS: Sodium Bicarbonate 75 MEQ in 0.45 % Sodium Chloride 1,000 ML IVC SCH (13:52)
[2018-02-05 06:21] LABS: Basophils % 0.3 %; Eosinophils # 0.1 K/mcL (0.0-0.6); Eosinophils % 3.2 %; Hematocrit 32.2 % (35.3-44.9); Hemoglobin 10.6 g/dL (11.5-15.4); Immature Granulocytes % 1.3 % (0-4); Lymphocytes # 0.9 K/mcL (0.6-4.6); Lymphocytes % 23.7 %; Mean Corpuscular HGB Conc 32.9 g/dL (31.6-35.5); Mean Corpuscular Hemoglobin 24.8 pg (28.0-33.3); Mean Corpuscular Volume 75.2 fL (83.0-100.0); Mean Platelet Volume 10.3 fL (9.4-12.4); Monocytes # 0.2 K/mcL (0.0-1.3); Monocytes % 6.1 %; Neutrophils # 2.5 K/mcL (1.6-8.9); Red Blood Count 4.28 M/mcL (3.82-4.97); Red Cell Distribution Width 19.8 % (11.5-14.5); Segmented Neutrophils % 65.4 %
[2018-02-05 06:22] LABS: Platelet Count 93 K/mcL (140-400)
[2018-02-05 06:23] LABS: Platelet Estimate Decreased (Normal)
[2018-02-05] MEDS: Ondansetron 4 MG/2 ML VIAL IVP PRN ×2 (06:30→12:35)
[2018-02-05 06:38] LABS: Calcium 7.3 mg/dL (8.6-10.3); Magnesium 1.7 mg/dL (1.6-2.6); Phosphorous 2.7 mg/dL (2.7-4.5); Potassium 3.4 mEq/L (3.5-5.1)
[2018-02-05] MEDS: Insulin LISPRO 300 UNITS/3 ML VIAL SQ SCH ×4 (07:47→20:33)
[2018-02-05] MEDS: Acetaminophen 325 MG TABLET PO PRN ×2 (09:12→19:51)
--- NOTE | 2018-02-05 11:39 | Nephrology Consult Note ---
Date of Encounter: 02/05/18 Time of Encounter: 11:00 Assessment and Plan (1) DINAH (acute kidney injury) Current Visit: Yes Status: Acute Oliguric Acute kidney injury which is worsening Patient's serum creatinine is trending upward, 3.41 today This is likely secondary to prerenal causes however there may be ATN, AIN involved as well Patient has remained septic, febrile, tachycardic and hypotensive throughout her stay She received vancomycin and Zosyn and was supratherapeutic on vancomycin as of yesterday There is also listed that she may have received ibuprofen at one point in her stay, or that it may have been on her medication list Urine output has been poor however it is not been well measured due to diarrhea Bladder scan revealed 200 mL postvoid residual Plan -Check urine electrolytes -Check urine eosinophils -Insert Enriquez catheter -Continue IV fluids at current rate, check chest x-ray to ensure no pulmonary edema -Retroperitoneal ultrasound -Avoid nephrotoxic agents including ibuprofen, vancomycin, Zosyn Patient may require temporary hemodialysis if her renal function continues to trend downward. We will continue to follow. (2) Sepsis Current Visit: Yes Status: Acute Sepsis secondary to pneumonia Patient remains febrile, tachycardic, hypotensive Management per primary team Levaquin is appropriate medication per nephrology Qualifiers: Sepsis type: sepsis due to unspecified organism Qualified Code(s): A41.9 - Sepsis, unspecified organism (3) Diarrhea Current Visit: Yes Status: Acute Patient complains of significant diarrhea Source does not appear to be infectious as GI panel is negative This may be contributing to the patient's hypokalemia and DINAH however Recommend close monitoring, supportive care. Enriquez catheter to differentiate fluid loss Qualifiers: Diarrhea type: unspecified type Qualified Code(s): R19.7 - Diarrhea, unspecified (4) Malignant melanoma Current Visit: Yes Status: Chronic Management per hematology oncology Qualifiers: Melanoma location: unspecified site Qualified Code(s): C43.9 - Malignant melanoma of skin, unspecified History of Present Illness - Reason for Consult Consult date: 02/05/18 Acute Kidney Injury Requesting physician: Fabi Mata - Chief Complaint DINAH - History of Present Illness This is Esteban is a 57-year-old woman with history of melanoma of the labia, diabetes, hypertension who presented to the ED with fever and chills. The patient has been undergoing immunotherapy at the [facility] for metastatic melanoma and was apparently told to come to the hospital if she experiences fevers. Initially the patient had no acute complaints other than some mild diarrhea, however the patient did go on to develop a pneumonia and became septic. The patient was temporarily transferred to the ICU where she was treated for that sepsis and was subsequently transferred back to the floor. In that time, the patient has remained febrile, tachycardic and has had episodes of hypotension. For her sepsis and pneumonia, the patient was treated with vancomycin and Zosyn. There also is mention of ibuprofen being used. Significantly, the patient has also developed a significant DINAH which has worsened over the past 2 days. The patient complains of inability to urinate over the weekend and severe diarrhea over the past 2 days as well. She has no urinary symptoms involving pain or discomfort she just does not feel that she is making significant urine. She has never had this problem before and does not admit to ever having seen a metallurgical specialist in the past. She does not know of any kidney disease that she has had in the past. Nephrology was consulted due to the worsening DINAH. Past Med Surg Social Fam HX - Past Medical History Medical history: cancer, diabetes, other Additional medical history: melonoma, low platlets Psychiatric history: no psych history - Past Surgical History Additional surgical history: lymph node biopsy - Social History Smoking Status: Never smoker Smokeless Tobacco Status: No Alcohol use: none Drug use: none Medications and Allergies Acetaminophen [Tylenol] 325 - 650 mg PO Q4HR PRN 02/02/18 [History] Albuterol Sulfate [Proair Hfa] 1 puff IH Q4H PRN 02/02/18 [History] Budesonide/Formoterol 160/4.5 [Symbicort 160/4.5] 2 puff IH BIDR 02/02/18 [ History] Calcium Carb, Citrate/Vit D3 [Calcium + D3 ER Tablet] 1 tab PO DAILY 02/02/18 [ History] Citalopram [CeleXA] 20 mg PO DAILY 02/02/18 [History] Ibuprofen [Ibu] 600 mg PO Q8H PRN 02/02/18 [History] Ipilimumab [Yervoy] 110 ml IV ONCE 02/02/18 [History] Metformin HCl [Metformin HCl] 1,000 mg PO BIDWM 02/02/18 [History] Omeprazole [PriLOSEC] 20 mg PO DAILY 02/02/18 [History] Triamcinolone Acet 0.1% CRM [Kenalog] 1 appl TP BID 02/02/18 [History] 3 Allergy/AdvReac Type Severity Reaction Status Date / Time No Known Allergies Allergy Verified 02/02/18 10:43 Review of Systems Constitutional: chills, fatigue, fever(s) Eyes: bilateral: blurred vision (patient denies) Nose, mouth and throat: no dizziness, no headache(s) Cardiovascular: no chest pain, no palpitations Respiratory: no cough, no dyspnea Gastrointestinal: change in bowel habits, diarrhea, loose stools, no abdominal pain Genitourinary Female: urinary hesitancy, other (anuric), no dysuria Musculoskeletal: no muscle weakness, no numbness Integumentary: no hirsutism, no striae Psychiatric: no depression Exam - Vital Signs Vital signs: Initial Vital Signs Temp Pulse Resp BP Pulse Ox 100.5 F H 117 20 98/60 99 02/02/18 08:47 02/02/18 08:47 02/02/18 08:47 02/02/18 08:47 02/02/18 08:47 Vital Signs - Last 8 Hours Temp Pulse Resp BP Pulse Ox 02/05/18 10:55 99.5 F 102 16 86/55 98 02/05/18 08:55 100.7 F H 102 02/05/18 07:03 100.7 F H 107 16 94/59 99 02/05/18 04:15 99.6 F 104 16 106/58 99 Intake and Output 02/04/18 02/05/18 02/05/18 23:59 07:59 15:59 Intake Total 240 / 240 50 / 50 100 / 100 Output Total 150 / 150 Balance 90 / 90 50 / 50 100 / 100 Intake: IV Fluids 50 / 50 100 / 100 Sodium Bicarbonate 75 MEQ In 0. 50 / 50 45% Sodium Chloride 1000 Ml 1000 Ml 1,000 ML @ 100 mls/hr IVC .[id number] [facility] Rx#:[id number] Potassium Chloride 10 mEq/100mL 100 / 100 10 meq In 100 ml @ 100 mls/hr IVPB Q1H [facility] Rx#:[id number] Oral 240 / 240 Output: Urine/Stool Mix 150 / 150 Other: Meal Dinner ice chips Percent of Meal Consumed 50% Stool Size Smear Stool Color Green Blood Glucose* 102 78 - General Appearance Exam: Gen: Vitals noted. No acute distress. HEENT: Normocephalic, atraumatic Neck: Supple. No adenopathy. Cardiac: RRR, no murmur, +S1/S2 Pulmonary: Bilaterally diminished, no wheezes, rales or rhonchi, equal chest expansion Abdomen: soft, nontender, BS noted, no guarding Back: Nontender throughout. MSK: ROM intact, no joint swelling noted Extremities: 1+ edema in the feet bilaterally, nontender calf, no cyanosis or clubbing Neuro: A&Ox3, moves all extremities, no focal deficits Psych: Appropriate mood and behavior Results - Lab Results 02/05/18 05:47 02/05/18 05:47 Most recent lab results Calcium 7.3 mg/dL (8.6-10.3) L 02/05/18 05:47 Phosphorus 2.7 mg/dL (2.7-4.5) 02/05/18 05:47 Magnesium 1.7 mg/dL (1.6-2.6) 02/05/18 05:47 Consult Discharge Plan - Plan Referrals: Leta Akins MD [Primary Care Provider] -
[2018-02-05] MEDS: Sodium Bicarbonate 75 MEQ in 0.45 % Sodium Chloride 1,000 ML IVC SCH ×2 (12:39→14:09)
--- NOTE | 2018-02-05 12:54 | Internal Med Progress Note ---
Hospitalist Progress Note - Encounter Date of Encounter: 02/05/18 Time of Encounter: 08:30 - Subjective Interval History: Reports intermittent nausea and emesis, controlled with Zofran. Improving diarrhea. Noted to have low-grade fever overnight, up to 100.9. No urinary complaints, appropriate urine output. No chest or abdominal pain, shortness of breath. - Exam Vitals: Temp Pulse Resp BP Pulse Ox 99.5 F 102 16 86/55 98 02/05/18 10:55 02/05/18 10:55 02/05/18 10:55 02/05/18 10:55 02/05/18 10:55 Exam: General: Well-developed female lying comfortably in bed in no acute distress Skin: Warm and supple Chest: Normal thoracic expansion. Normal breath sounds. Clear to auscultation. Heart: Normal S1 & S2; rhythmic. No rubs or murmurs. Abdomen: Non-distended, soft and nontender Extremities:Full ROM; No calf tenderness. Normal distal pulses. Full ROM Neurological: Awake, alert and oriented to person, place and time. No focal deficits. Psych: Affect appropriate. - Assessment and Plan (1) DINAH (acute kidney injury) Current Visit: Yes Status: Acute Assessment and Plan: baseline serum creatinine noted to be normal; worsened to 3.4<--1.7 today; could be prerenal azotemia due to diarrhea and dehydration vs nephrotoxicity from antibiotics/immune-mediated from immunotherapy; consulted Nephrology; also associated with NAGMA, which is improving; continue bicarbonate drip; hold NSAIDs; monitor serum creatinine closely; (2) Pneumonia Current Visit: Yes Status: Acute Assessment and Plan: Chest x-ray shows small right basilar infiltrate. Preliminary blood cultures negative. Urine streptococcal and legionella antigen negative. continue IV Levaquin; Supportive care and supplemental oxygen. (3) Hypokalemia Current Visit: Yes Status: Acute Assessment and Plan: Supplement with IV potassium chloride as patient is unable to tolerate PO KCl; (4) Sepsis Current Visit: Yes Status: Acute Assessment and Plan: Patient presents with fever, tachycardia, leukopenia. Possible source of infection is pneumonia. Patient does have diarrhea, stool GI panel negative. (5) Malignant melanoma Current Visit: Yes Status: Chronic (6) Diabetes mellitus Current Visit: Yes Status: Chronic Assessment and Plan: Blood sugars noted to be well controlled. Hold oral hypoglycemics while in the hospital. Continue Accu-Chek blood glucose monitoring with sliding scale insulin if needed. Diabetic diet. - Time Spent with Patient Total time spent is greater than 50% in coordination of care (as documented) at patient's floor/unit and/or counseling patient: Plan of Care Discussed with: patient Internal Medicine: Result - Labs CBC & Chem 7: 02/05/18 05:47 02/05/18 05:47 Labs: Short CBC 02/05/18 Range/Units 05:47 WBC 3.8 L (4.3-11.1) K/mcL Hgb 10.6 L (11.5-15.4) g/dL Hct 32.2 L (35.3-44.9) % Plt Count 93 L (140-400) K/mcL Neutrophils # 2.5 (1.6-8.9) K/mcL BMP 02/05/18 05:47 Sodium 136 Potassium 3.4 L Chloride 108 H Carbon Dioxide 19 L BUN 7 Creatinine 3.41 H Glucose 76 Calcium 7.3 L - ABG Interpretation ABG results: PT/INR, D-dimer PT 13.1 Seconds (9.4-12.1) H 02/02/18 09:21 - VTE Documentation of Mechanical Device: Intermittent pneumatic compression device Consult Discharge Plan - Plan Referrals: Leta Akins MD [Primary Care Provider] - (2) Pneumonia Qualifiers: Pneumonia type: due to unspecified organism Laterality: right Lung location : lower lobe of lung Qualified Code(s): J18.1 - Lobar pneumonia, unspecified organism (4) Sepsis Qualifiers: Sepsis type: sepsis due to unspecified organism Qualified Code(s): A41.9 - Sepsis, unspecified organism (5) Malignant melanoma Qualifiers: Melanoma location: unspecified site Qualified Code(s): C43.9 - Malignant melanoma of skin, unspecified (6) Diabetes mellitus Qualifiers: Diabetes mellitus type: type 2 Diabetes mellitus termination clerk insulin use: without nursing home use Diabetes mellitus complication status: without complication Qualified Code(s): E11.9 - Type 2 diabetes mellitus without complications
--- NOTE | 2018-02-05 16:09 | Oncology Inp Progress Note ---
<Joanna Ceron - Last Filed: 02/05/18 17:29> Date of Encounter: 02/05/18 Time of Encounter: 15:00 (1) Pneumonia Current Visit: Yes Status: Acute Assessment and plan: CXR reveals RLL pneumonia Currently on Levaquin Preliminary blood cultures negative Urine streptococcal and legionella antigen negative. Qualifiers: Pneumonia type: due to unspecified organism Laterality: right Lung location: lower lobe of lung Qualified Code(s): J18.1 - Lobar pneumonia, unspecified organism (2) Pancytopenia Current Visit: Yes Status: Acute Assessment and plan: Possibly related to sepsis, infectious process (3) Malignant melanoma Current Visit: Yes Status: Chronic Assessment and plan: Of the labia status post surgery, adjuvant therapy upon progression patient is receiving yervoy/nivolumab at [facility], s/p wk3 of Yervoy last monday. She was previously treated with adjuvant Nivolumab late last year. She is noted to have progression according to [place] state with lymphadenopathy in CT imaging. She is scheduled for 4th wk next Monday. CT imaging was planned after that to assess response, per patient. Qualifiers: Melanoma location: unspecified site Qualified Code(s): C43.9 - Malignant melanoma of skin, unspecified (4) DINAH (acute kidney injury) Current Visit: Yes Status: Acute Assessment and plan: Acute decrease in kidney function with creatinine increase to 3.41 today (1.77 yesterday) BUN normal at 7 Reviewed nephrology recommendations-considering prerenal, may have involvement of ATN, AIN as well Immune mediated nephritis secondary to immunotherapy remains within differential -discussed with Dr. Pascal- may consider treatment with steroids but would like to monitor patients response to nephrology's recommendations at this time prior to considering steroids. (5) Sepsis Current Visit: Yes Status: Acute Assessment and plan: Presents with fever, tachycardia, leukopenia. Possible source of infection is pneumonia. Qualifiers: Sepsis type: sepsis due to unspecified organism Qualified Code(s): A41.9 - Sepsis, unspecified organism (6) Diarrhea Current Visit: Yes Status: Acute Assessment and plan: Now improving upon assessment today Stool GI panel negative. Continue Immodium PRN for supportive care Less likely immune mediated colitis given improvement in symptoms-discussed with Dr. Pascal and would like to continue to monitor at this time. Qualifiers: Diarrhea type: unspecified type Qualified Code(s): R19.7 - Diarrhea, unspecified Oncology: Subj Interval history: Ms. Orellana is resting in bed, family at bedside. She reports improvement within her diarrhea, she has had about 3-5 bouts of diarrhea so far today, this is an improvement from the weekend. She reports nausea and vomiting today unrelieved by zofran. Denies abdominal pain, chest pain, hematochezia, melena; patient herself denies SOB but family at bedside state she observed some SOB with getting up to [facility]. - Constitutional Vitals: Vital Signs Temp Pulse Resp BP Pulse Ox 02/05/18 15:30 99.2 F 102 18 95/66 97 02/05/18 10:55 99.5 F 102 16 86/55 98 02/05/18 08:55 100.7 F H 102 02/05/18 07:03 100.7 F H 107 16 94/59 99 02/05/18 04:15 99.6 F 104 16 106/58 99 02/05/18 01:00 99.3 F 107 16 105/65 98 02/04/18 21:36 100.9 F H 107 17 119/54 99 Intake and Output 02/05/18 02/05/18 02/05/18 07:59 15:59 23:59 Intake Total 50 / 50 1150 / 1150 Output Total 200 / 200 Balance 50 / 50 950 / 950 Intake: IV Fluids 50 / 50 1150 / 1150 Sodium Bicarbonate 75 MEQ In 0. 50 / 50 950 / 950 45% Sodium Chloride 1000 Ml 1000 Ml 1,000 ML @ 100 mls/hr IVC .[id number] [facility] Rx#:[id number] Potassium Chloride 10 mEq/100mL 200 / 200 10 meq In 100 ml @ 100 mls/hr IVPB Q1H [facility] Rx#:[id number] Output: Urine 200 / 200 Other: Meal ice chips Stool Size Moderate Stool Consistency soft Stool Color Green Blood Glucose* 78 67 General appearance: cooperative, no acute distress, no febrile - Head Head exam: Present: atraumatic - ENT ENT exam: Present: mucous membranes moist - Respiratory Respiratory exam: Present: CTAB. Absent: respiratory distress - Cardiovascular Cardiovascular exam: Present: RRR, +S1, +S2 - GI/Abdominal GI/Abdominal exam: Present: normal bowel sounds, soft. Absent: guarding, rebound, tenderness - Extremities Exam Extremities exam: Present: normal inspection. Absent: calf tenderness - Neurological Exam Neurological exam: Present: alert, oriented X3, no focal deficits, strengths equal and symetr throughout - Skin Skin exam: Present: dry, intact, normal color, warm Oncology: Obj Data - Labs CBC & Chem 7: 02/05/18 05:47 02/05/18 05:47 - ABG Interpretation ABG results: PT/INR, D-dimer PT 13.1 Seconds (9.4-12.1) H 02/02/18 09:21 Consult Discharge Plan - Plan Referrals: Leta Akins MD [Primary Care Provider] - Inpatient Charges Provider: Dr. Storm Wyatt <Yuli Wyatt - Last Filed: 02/06/18 17:03> Date of Encounter: 02/06/18 (1) Malignant melanoma Current Visit: Yes Status: Chronic Qualifiers: Melanoma location: unspecified site Qualified Code(s): C43.9 - Malignant melanoma of skin, unspecified (2) Diarrhea Current Visit: Yes Status: Acute Qualifiers: Diarrhea type: unspecified type Qualified Code(s): R19.7 - Diarrhea, unspecified (3) Pneumonia Current Visit: Yes Status: Acute Qualifiers: Pneumonia type: due to unspecified organism Laterality: right Lung location: lower lobe of lung Qualified Code(s): J18.1 - Lobar pneumonia, unspecified organism (4) Pancytopenia Current Visit: Yes Status: Acute Oncology: Subj Interval history: Diarrhea has slightly improved with loperamide, antimotility agents. She is off pressor support clinically looking better. Deferred steroids. She presented with a prerenal setting, antibiotics likely worsened renal insufficiency although immunotherapy mediated nephritis is not ruled out. Alignment for toxins appreciate nephrology consultation input. I examined this patient and my medical decision-making was reviewed with Joanna Ceron CNP. I agree with the documented findings, disposition and treatment plan as described except to the extent set forth below. - Constitutional Vitals: Vital Signs Temp Pulse Resp BP Pulse Ox 02/06/18 16:04 100.2 F H 105 16 86/56 100 02/06/18 10:57 100.8 F H 114 16 108/60 98 02/06/18 07:35 99.8 F H 107 16 97/61 97 02/06/18 03:40 98.6 F 100 16 90/58 98 02/06/18 00:02 98.1 F 102 16 90/53 100 02/05/18 20:33 98.9 F 02/05/18 20:17 100.6 F H 02/05/18 19:37 102.4 F H 111 18 97/63 98 Intake and Output 02/06/18 02/06/18 02/06/18 07:59 15:59 23:59 Intake Total 950 / 950 825 / 825 Output Total 125 / 125 0 / 0 Balance 825 / 825 825 / 825 0 / 0 Intake: IV Fluids 950 / 950 825 / 825 Sodium Bicarbonate 75 MEQ In 0. 950 / 950 725 / 725 45% Sodium Chloride 1000 Ml 1000 Ml 1,000 ML @ 100 mls/hr IVC .[id number] [facility] Rx#:[id number] Levaquin Premix 500mg/100mL 500 100 / 100 mg In 100 ml @ 100 mls/hr IVPB Q48H [facility] Rx#:[id number] Output: Urine 125 / 125 0 / 0 Other: Weight 84 kg Blood Glucose* 69 91 Patient Weight 02/06/18 23:59 Weight 84 kg Oncology: Obj Data - Labs CBC & Chem 7: 02/06/18 04:55 02/06/18 04:55 Labs: Laboratory Results - last 24 hr 02/04/18 02/05/18 02/05/18 21:24 11:54 18:22 WBC RBC Hgb Hct MCV MCH MCHC RDW Plt Count MPV Immature Gran % Seg Neutrophils % Lymphocytes % Monocytes % Eosinophils % Basophils % Neutrophils # Lymphocytes # Monocytes # Eosinophils # Basophils # Platelet Estimate Anisocytosis Sodium Potassium Chloride Carbon Dioxide BUN Creatinine Est GFR ( Amer) Est GFR (Non-Af Amer) BUN/Creatinine Ratio Glucose POC Glucose 102 H 67 L 86 Calculated Osmolality Calcium Phosphorus Magnesium Urine Color Urine Clarity Urine pH Ur Specific [place] Urine Protein Urine Glucose (UA) Urine Ketones Urine Blood Urine Nitrite Urine Bilirubin Urine Urobilinogen Ur Leukocyte Esterase Urine Microscopic RBC Urine Microscopic WBC Ur Eosinophil Smear Ur Squamous Epith Cells Urine Bacteria Hyaline Casts Urine Creatinine Protein/Creatinin Ratio Urine Sodium Urine Total Protein 02/05/18 02/06/18 02/06/18 20:15 03:10 03:10 WBC RBC Hgb Hct MCV MCH MCHC RDW Plt Count MPV Immature Gran % Seg Neutrophils % Lymphocytes % Monocytes % Eosinophils % Basophils % Neutrophils # Lymphocytes # Monocytes # Eosinophils # Basophils # Platelet Estimate Anisocytosis Sodium Potassium Chloride Carbon Dioxide BUN Creatinine Est GFR ( Amer) Est GFR (Non-Af Amer) BUN/Creatinine Ratio Glucose POC Glucose 80 Calculated Osmolality Calcium Phosphorus Magnesium Urine Color Yellow Urine Clarity Clear Urine pH 6.5 Ur Specific [place] < 1.005 L Urine Protein Trace Urine Glucose (UA) Normal Urine Ketones Negative Urine Blood Trace H Urine Nitrite Negative Urine Bilirubin Negative Urine Urobilinogen Normal Ur Leukocyte Esterase Small H Urine Microscopic RBC 5-15 H Urine Microscopic WBC 0-3 Ur Eosinophil Smear Ur Squamous Epith Cells Moderate H Urine Bacteria None Seen Hyaline Casts Few Urine Creatinine 31 Protein/Creatinin Ratio 0.74 H Urine Sodium 32.5 Urine Total Protein 23 H 02/06/18 02/06/18 02/06/18 03:10 03:26 04:55 WBC RBC Hgb Hct MCV MCH MCHC RDW Plt Count MPV Immature Gran % Seg Neutrophils % Lymphocytes % Monocytes % Eosinophils % Basophils % Neutrophils # Lymphocytes # Monocytes # Eosinophils # Basophils # Platelet Estimate Anisocytosis Sodium 134 L Potassium 3.4 L Chloride 104 Carbon Dioxide 22 L BUN 9 Creatinine 4.23 H Est GFR ( Amer) 13 L Est GFR (Non-Af Amer) 11 L BUN/Creatinine Ratio 2 L Glucose 68 L POC Glucose 73 Calculated Osmolality 275 L Calcium 7.3 L Phosphorus 2.5 L Magnesium 1.4 L Urine Color Urine Clarity Urine pH Ur Specific [place] Urine Protein Urine Glucose (UA) Urine Ketones Urine Blood Urine Nitrite Urine Bilirubin Urine Urobilinogen Ur Leukocyte Esterase Urine Microscopic RBC Urine Microscopic WBC Ur Eosinophil Smear 0 Ur Squamous Epith Cells Urine Bacteria Hyaline Casts Urine Creatinine Protein/Creatinin Ratio Urine Sodium Urine Total Protein 02/06/18 02/06/18 04:55 07:36 WBC 3.7 L RBC 4.19 Hgb 10.6 L Hct 32.2 L MCV 76.8 L MCH 25.3 L MCHC 32.9 RDW 20.1 H Plt Count 107 L MPV 10.9 Immature Gran % 1.6 Seg Neutrophils % 63.0 Lymphocytes % 22.8 Monocytes % 9.0 Eosinophils % 3.3 Basophils % 0.3 Neutrophils # 2.3 Lymphocytes # 0.8 Monocytes # 0.3 Eosinophils # 0.1 Basophils # 0.0 Platelet Estimate Slight Decrease L Anisocytosis 1+ A Sodium Potassium Chloride Carbon Dioxide BUN Creatinine Est GFR ( Amer) Est GFR (Non-Af Amer) BUN/Creatinine Ratio Glucose POC Glucose 69 L Calculated Osmolality Calcium Phosphorus Magnesium Urine Color Urine Clarity Urine pH Ur Specific [place] Urine Protein Urine Glucose (UA) Urine Ketones Urine Blood Urine Nitrite Urine Bilirubin Urine Urobilinogen Ur Leukocyte Esterase Urine Microscopic RBC Urine Microscopic WBC Ur Eosinophil Smear Ur Squamous Epith Cells Urine Bacteria Hyaline Casts Urine Creatinine Protein/Creatinin Ratio Urine Sodium Urine Total Protein - Impressions Impressions Chest X-Ray 02/05/18 14:27 IMPRESSION: Developing right upper and persisting right basilar opacities, most likely pneumonia. Follow-up until resolution is recommended. D/ / Kota Mccartney MD / Kota Mccartney MD Interpreting Provider: Kota Mccartney MD Retroperitoneum Ultrasound 02/05/18 20:45 IMPRESSION: No hydronephrosis is identified. Complex left adnexal cystic solid masses. These appear new compared to 02/09/2017. Ovarian epithelial neoplasm or metastasis, considering history of melanoma, are considerations. Further characterization by CT abdomen and pelvis is recommended. D/ / Kota Mccartney MD / Kota Mccartney MD Interpreting Provider: Kota Mccartney MD - ABG Interpretation ABG results: PT/INR, D-dimer PT 13.1 Seconds (9.4-12.1) H 02/02/18 09:21 Inpatient Charges Provider: Dr. Storm Wyatt Follow Up: [id number]
[2018-02-06] MEDS: Sodium Bicarbonate 75 MEQ in 0.45 % Sodium Chloride 1,000 ML IVC SCH ×2 (01:48→10:34)
[2018-02-06 03:36] LABS: Bilirubin,Urine Negative (Negative); Blood,Urine Trace (Negative); Clarity,Urine Clear (Clear); Color,Urine Yellow (Yellow); Glucose,Urine (UA) Normal (Normal); Ketones,Urine Negative (Negative); Leukocyte Esterase,Urine Small (Negative); Nitrite,Urine Negative (Negative); PH,Urine 6.5 pH Units (5.0-8.0); Protein,Urine Trace mg/dL (Neg-Trace); Specific Gravity,Urine < 1.005 (1.010-1.025); Urobilinogen,Urine Normal (Normal)
[2018-02-06 03:39] LABS: Bacteria,Urine None Seen per hpf (None-Few); Hyaline Casts,Urine Few per lpf (None-Few); Squamous Epithelial Cell,Urine Moderate per lpf (None-Few); WBC,Urine 0-3 per hpf (0-3)
[2018-02-06] MEDS: Ondansetron 4 MG/2 ML VIAL IVP PRN ×2 (03:39→11:47)
[2018-02-06 03:45] LABS: Protein/Creatinine Ratio,Urine 0.74 mg/mg (0.00-0.20); Sodium, Urine 32.5 mEq/L
[2018-02-06 05:42] LABS: Calcium 7.3 mg/dL (8.6-10.3); Magnesium 1.4 mg/dL (1.6-2.6); Potassium 3.4 mEq/L (3.5-5.1)
[2018-02-06] MEDS: Insulin LISPRO 300 UNITS/3 ML VIAL SQ SCH ×4 (07:48→20:22)
[2018-02-06] MEDS: Levofloxacin 500 MG/100 ML 500 MG/100 ML BAG IVPB SCH (08:54)
[2018-02-06] MEDS ORDERED: Levofloxacin 750 MG/150 ML 750 MG/150 ML BAG IVPB SCH (09:00)
--- NOTE | 2018-02-06 09:19 | Nephrology Progress Note ---
Date of Encounter: 02/06/18 Time of Encounter: 10:45 - Assessment and Plan (1) DNIAH (acute kidney injury) Current Visit: Yes Status: Acute Oliguric Acute kidney injury which is worsening Patient's serum creatinine is trending upward, 4.23 today This is likely secondary to prerenal causes however there may be ATN, AIN involved as well Patient has remained septic, febrile, tachycardic and hypotensive throughout her stay She received vancomycin and Zosyn and was supratherapeutic on vancomycin as of yesterday There is also listed that she may have received ibuprofen at one point in her stay, or that it may have been on her medication list Urine output has been poor however it is not been well measured due to diarrhea Bladder scan revealed 200 mL postvoid residual yesterday which was cleared without the need for Enriquez catheterization Urine studies demonstrate protein creatinine ratio 0.7 which is likely indicative of tubular proteinuria and ATN due to sepsis, 0 urine eosinophils Retroperitoneal ultrasound did not demonstrate hydronephrosis and normal echogenicity demonstrates no prior medical renal disease Plan -Patient will likely require hemodialysis in the morning, however blood pressure cannot tolerate it at this rate -The patient is most interested in transferring to the [facility] -If the patient plans to stay here she should be transferred to the ICU, insert temporary hemodialysis catheter plan for hemodialysis in the morning with pressor support -Avoid nephrotoxic agents including ibuprofen, vancomycin, Zosyn We will continue to follow. (2) Sepsis Current Visit: Yes Status: Acute Sepsis secondary to pneumonia Patient remains febrile, tachycardic, hypotensive Management per primary team Levaquin is appropriate medication per nephrology Qualifiers: Sepsis type: sepsis due to unspecified organism Qualified Code(s): A41.9 - Sepsis, unspecified organism (3) Diarrhea Current Visit: Yes Status: Acute Patient complains of significant diarrhea Source does not appear to be infectious as GI panel is negative This may be contributing to the patient's hypokalemia and DINAH however Recommend close monitoring, supportive care. Enriquez catheter to differentiate fluid loss Qualifiers: Diarrhea type: unspecified type Qualified Code(s): R19.7 - Diarrhea, unspecified (4) Malignant melanoma Current Visit: Yes Status: Chronic Management per hematology oncology Qualifiers: Melanoma location: unspecified site Qualified Code(s): C43.9 - Malignant melanoma of skin, unspecified Subjective Principal diagnosis: DINAH Interval history: The patient is resting in bed at time of examination. Her creatinine continues to rise, however she does not feel significantly worse. She is discussed with her family significantly, maybe she would benefit from transferring to the [facility]. This is something I will be discussed with the hospitalist team. Objective - Vital Signs Vital signs: Vital Signs Temp Pulse Resp BP Pulse Ox 02/06/18 07:35 99.8 F H 107 16 97/61 97 02/06/18 03:40 98.6 F 100 16 90/58 98 02/06/18 00:02 98.1 F 102 16 90/53 100 02/05/18 20:33 98.9 F 02/05/18 20:17 100.6 F H 02/05/18 19:37 102.4 F H 111 18 97/63 98 02/05/18 15:30 99.2 F 102 18 95/66 97 02/05/18 10:55 99.5 F 102 16 86/55 98 Intake and Output 02/05/18 02/06/18 02/06/18 23:59 07:59 15:59 Intake Total 950 / 950 Output Total 125 / 125 Balance 825 / 825 Intake: IV Fluids 950 / 950 Sodium Bicarbonate 75 MEQ In 0. 950 / 950 45% Sodium Chloride 1000 Ml 1000 Ml 1,000 ML @ 100 mls/hr IVC .[id number] [facility] Rx#:[id number] Output: Urine 125 / 125 Other: Weight 84 kg Blood Glucose* 80 69 Patient Weight 02/06/18 23:59 Weight 84 kg - General Appearance Exam: Gen: Vitals noted. No acute distress. HEENT: Normocephalic, atraumatic Neck: Supple. No adenopathy. Cardiac: RRR, 2/6 systolic ejection murmur heard best at the upper left sternal border. +S1/S2 Pulmonary: Bilaterally dim/inished, no wheezes, rales or rhonchi, equal chest expansion Abdomen: soft, nontender, BS noted, no guarding Back: Nontender throughout. MSK: ROM intact, no joint swelling noted Extremities: 1+ edema in the feet bilaterally, nontender calf, no cyanosis or clubbing Neuro: A&Ox3, moves all extremities, no focal deficits Psych: Appropriate mood and behavior - Lab 02/06/18 04:55 02/06/18 04:55 Most recent lab results Calcium 7.3 mg/dL (8.6-10.3) L 02/06/18 04:55 Phosphorus 2.7 mg/dL (2.7-4.5) 02/05/18 05:47 Magnesium 1.4 mg/dL (1.6-2.6) L 02/06/18 04:55 Urine Creatinine 31 mg/dL 02/06/18 03:10 Urine Sodium 32.5 mEq/L 02/06/18 03:10 Urine Total Protein 23 mg/dL (1-14) H 02/06/18 03:10 - VTE Documentation of Mechanical Device: Intermittent pneumatic compression device Consult Discharge Plan - Plan Referrals: Leta Akins MD [Primary Care Provider] -
[2018-02-06 09:21] LABS: Phosphorous 2.5 mg/dL (2.7-4.5)
[2018-02-06 09:25] LABS: Basophils % 0.3 %; Eosinophils # 0.1 K/mcL (0.0-0.6); Eosinophils % 3.3 %; Hematocrit 32.2 % (35.3-44.9); Hemoglobin 10.6 g/dL (11.5-15.4); Immature Granulocytes % 1.6 % (0-4); Lymphocytes # 0.8 K/mcL (0.6-4.6); Lymphocytes % 22.8 %; Mean Corpuscular HGB Conc 32.9 g/dL (31.6-35.5); Mean Corpuscular Hemoglobin 25.3 pg (28.0-33.3); Mean Corpuscular Volume 76.8 fL (83.0-100.0); Mean Platelet Volume 10.9 fL (9.4-12.4); Monocytes # 0.3 K/mcL (0.0-1.3); Neutrophils # 2.3 K/mcL (1.6-8.9); Platelet Count 107 K/mcL (140-400); Red Blood Count 4.19 M/mcL (3.82-4.97); Red Cell Distribution Width 20.1 % (11.5-14.5)
[2018-02-06 11:19] LABS: Anisocytosis 1+ (Not Present); Platelet Estimate Slight Decrease (Normal)
[2018-02-06] MEDS: Acetaminophen 325 MG TABLET PO PRN ×2 (11:47→23:52)
[2018-02-06] MEDS ORDERED: *HR* Promethazine 25 MG/ML VIAL IVP PRN (15:16)
[2018-02-06] MEDS ORDERED: 0.9 % Sodium Chloride 500 ML IVC ONE (16:32)
[2018-02-06] MEDS ORDERED: 0.9 % Sodium Chloride 1,000 ML ONE (18:09)
--- NOTE | 2018-02-06 19:13 | Internal Med Progress Note ---
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 Patient however during the day developed hypotension and had to be given a fluid bolus. She was subsequently transferred to the ICU in case pressors were needed. - Exam Vitals: Temp Pulse Resp BP Pulse Ox 100.0 F H 114 25 124/56 98 02/06/18 17:38 02/06/18 18:18 02/06/18 18:18 02/06/18 18:18 02/06/18 18:18 Exam: Gen.: Nonacute distress, alert and oriented 3 ENT: Mucosal membranes moist Respiratory: Lungs are clear to auscultation bilaterally without any wheezing rhonchi or rales Cardiovascular: Normal S1 and S2 regular rate rhythm no murmurs rubs or gallops Abdomen: Soft, nontender and nondistended with positive bowel sounds Extremities: No lower extremity edema Skin: Normal color - Assessment and Plan (1) Pneumonia Current Visit: Yes Status: Acute Assessment and Plan: Repeat chest x-ray shows possible worsening infiltrate Preliminary blood cultures negative. Urine streptococcal and legionella antigen negative. continue IV Levaquin; Supportive care and supplemental oxygen. (2) Hypokalemia Current Visit: Yes Status: Acute Assessment and Plan: Supplement with IV potassium chloride as patient is unable to tolerate PO KCl; (3) Sepsis Current Visit: Yes Status: Acute Assessment and Plan: Patient presents with fever, tachycardia, leukopenia. Possible source of infection is pneumonia. Continue to monitor (4) Malignant melanoma Current Visit: Yes Status: Chronic Assessment and Plan: Of labia/vulva; status post surgery. Currently on immunotherapy with Nevolumab and Ipilimumab; follows with [facility] as outpatient Patient requesting to be transferred to [facility] for further management (5) Diabetes mellitus Current Visit: Yes Status: Chronic Assessment and Plan: Blood sugars noted to be well controlled. Hold oral hypoglycemics while in the hospital. Continue Accu-Chek blood glucose monitoring with sliding scale insulin if needed. Diabetic diet. (6) DINAH (acute kidney injury) Current Visit: Yes Status: Acute Assessment and Plan: Nephrology following with recommendations for potential hemodialysis on 02/07/18 - Time Spent with Patient Total time spent is greater than 50% in coordination of care (as documented) at patient's floor/unit and/or counseling patient: Internal Medicine: Result - Labs CBC & Chem 7: 02/07/18 04:10 02/07/18 04:10 Labs: Short CBC 02/06/18 Range/Units 04:55 WBC 3.7 L (4.3-11.1) K/mcL Hgb 10.6 L (11.5-15.4) g/dL Hct 32.2 L (35.3-44.9) % Plt Count 107 L (140-400) K/mcL Neutrophils # 2.3 (1.6-8.9) K/mcL BMP 02/06/18 04:55 Sodium 134 L Potassium 3.4 L Chloride 104 Carbon Dioxide 22 L BUN 9 Creatinine 4.23 H Glucose 68 L Calcium 7.3 L Urine 02/06/18 Range/Units 03:10 Urine Color Yellow (Yellow) Urine Clarity Clear (Clear) Urine pH 6.5 (5.0-8.0) pH Units Ur Specific [place] < 1.005 L (1.010-1.025) Urine Protein Trace (Neg-Trace) mg/dL Urine Glucose (UA) Normal (Normal) mg/dL - ABG Interpretation ABG results: PT/INR, D-dimer PT 13.1 Seconds (9.4-12.1) H 02/02/18 09:21 - Impressions Impressions Chest X-Ray 02/05/18 14:27 IMPRESSION: Developing right upper and persisting right basilar opacities, most likely pneumonia. Follow-up until resolution is recommended. D/ / Kota Mccartney MD / Kota Mccartney MD Interpreting Provider: Kota Mccartney MD Retroperitoneum Ultrasound 02/05/18 20:45 IMPRESSION: No hydronephrosis is identified. Complex left adnexal cystic solid masses. These appear new compared to 02/09/2017. Ovarian epithelial neoplasm or metastasis, considering history of melanoma, are considerations. Further characterization by CT abdomen and pelvis is recommended. D/ / Kota Mccartney MD / Kota Mccartney MD Interpreting Provider: Kota Mccartney MD - VTE Documentation of Mechanical Device: Intermittent pneumatic compression device Consult Discharge Plan - Plan Referrals: Leta Akins MD [Primary Care Provider] - (1) Pneumonia Qualifiers: Pneumonia type: due to unspecified organism Laterality: right Lung location : lower lobe of lung Qualified Code(s): J18.1 - Lobar pneumonia, unspecified organism (3) Sepsis Qualifiers: Sepsis type: sepsis due to unspecified organism Qualified Code(s): A41.9 - Sepsis, unspecified organism (4) Malignant melanoma Qualifiers: Melanoma location: unspecified site Qualified Code(s): C43.9 - Malignant melanoma of skin, unspecified (5) Diabetes mellitus Qualifiers: Diabetes mellitus type: type 2 Diabetes mellitus fci insulin use: without intermodal owner operator truck driver use Diabetes mellitus complication status: without complication Qualified Code(s): E11.9 - Type 2 diabetes mellitus without complications
[2018-02-06] MEDS: 0.9 % Sodium Chloride w KCl 40 MEQ/1,000 ML MLS IVC SCH (19:28)
[2018-02-06] MEDS: Ringers Solution, Lactated 1,000 ML IVC SCH (19:29)
[2018-02-06] MEDS: 0.9 % Sodium Chloride 1,000 ML IVC SCH (20:18)
[2018-02-06] MEDS: *HR* Dextrose 50 % in Water (Syg) 50 ML SYRINGE IVP PRN ×2 (21:26→23:52)
[2018-02-07 04:49] LABS: VBG Ionized Calcium 0.94 mmol/L (1.15-1.35)
[2018-02-07 04:50] LABS: Basophils % 0.3 %; Eosinophils # 0.1 K/mcL (0.0-0.6); Eosinophils % 2.9 %; Hematocrit 29.4 % (35.3-44.9); Hemoglobin 9.8 g/dL (11.5-15.4); Immature Granulocytes % 3.8 % (0-4); Lymphocytes # 0.8 K/mcL (0.6-4.6); Mean Corpuscular HGB Conc 33.3 g/dL (31.6-35.5); Mean Corpuscular Hemoglobin 25.4 pg (28.0-33.3); Mean Corpuscular Volume 76.2 fL (83.0-100.0); Mean Platelet Volume 10.3 fL (9.4-12.4); Monocytes # 0.4 K/mcL (0.0-1.3); Monocytes % 12.1 %; Platelet Count 101 K/mcL (140-400); Red Blood Count 3.86 M/mcL (3.82-4.97); Red Cell Distribution Width 20.1 % (11.5-14.5); Segmented Neutrophils % 58.9 %
[2018-02-07 04:57] LABS: INR 1.5; Prothrombin Time 16.5 Seconds (9.4-12.1)
[2018-02-07 05:20] LABS: Albumin 2.1 g/dL (3.5-5.7); Albumin/Globulin Ratio 1.1 (1.1-2.2); Bilirubin,Total 1.3 mg/dL (0.3-1.0); Magnesium 1.3 mg/dL (1.6-2.6); Phosphorous 2.5 mg/dL (2.7-4.5); Potassium 3.4 mEq/L (3.5-5.1); Total Protein 4.1 g/dL (6.4-8.9)
[2018-02-07] MEDS: 0.9 % Sodium Chloride 1,000 ML IVC SCH (06:29)
[2018-02-07] MEDS: Ondansetron 4 MG/2 ML VIAL IVP PRN ×2 (07:50→17:22)
[2018-02-07] MEDS: Insulin LISPRO 300 UNITS/3 ML VIAL SQ SCH ×2 (07:51→13:20)
[2018-02-07] MEDS ORDERED: 0.9 % Sodium Chloride 250 ML IVC PRN (07:53)
--- NOTE | 2018-02-07 09:29 | Nephrology Progress Note ---
Date of Encounter: 02/07/18 Time of Encounter: 08:30 - Assessment and Plan (1) DINAH (acute kidney injury) Current Visit: Yes Status: Acute Oliguric Acute kidney injury which is worsening Patient's serum creatinine is trending upward, 5.07 today This is likely secondary to prerenal causes however there may be ATN, AIN involved as well Patient has remained septic, febrile, tachycardic and hypotensive throughout her stay and received vancomycin and Zosyn throughout her stay There is also listed that she may have received ibuprofen at one point in her stay, or that it may have been on her medication list Urine output has been poor however it is not been well measured due to diarrhea Urine studies demonstrate protein creatinine ratio 0.7 which is likely indicative of tubular proteinuria and ATN due to sepsis, 0 urine eosinophils Retroperitoneal ultrasound did not demonstrate hydronephrosis and normal echogenicity demonstrates no prior medical renal disease however did demonstrate an incidental left adnexal cyst which will likely require follow-up however patient does say that this may have been known to the patient previously Plan -Hemodialysis will be required, however she will not be able to tolerate standard hemodialysis due to her blood pressure which was 89/52 in the room. -The patient was transferred to the ICU for hemodialysis with cold dialysate plus liters head and no ultrafiltration and order to maintain blood pressures. If the patient is unable to obtain a reasonable MAP, we may need to opt for [facility] instead, however we will attempt this option first. -The patient is most interested in transferring to the [facility], and has been accepted for when a bed becomes available. Until that time she will be maintained in the ICU here. -Avoid nephrotoxic agents including ibuprofen, vancomycin, Zosyn We will continue to follow. (2) Sepsis Current Visit: Yes Status: Acute Sepsis secondary to pneumonia Patient remains febrile, tachycardic, hypotensive Management per primary team Levaquin is appropriate medication per nephrology Qualifiers: Sepsis type: sepsis due to unspecified organism Qualified Code(s): A41.9 - Sepsis, unspecified organism (3) Diarrhea Current Visit: Yes Status: Acute Patient complains of significant diarrhea Source does not appear to be infectious as GI panel is negative This may be contributing to the patient's hypokalemia and DINAH however Recommend close monitoring, supportive care. Enriquez catheter to differentiate fluid loss Qualifiers: Diarrhea type: unspecified type Qualified Code(s): R19.7 - Diarrhea, unspecified (4) Malignant melanoma Current Visit: Yes Status: Chronic Management per hematology oncology Qualifiers: Melanoma location: unspecified site Qualified Code(s): C43.9 - Malignant melanoma of skin, unspecified Subjective Principal diagnosis: DINAH Interval history: The patient is resting in bed at time of examination. Due to her need for acute hemodialysis the patient has been transferred to the ICU because she will likely need vasopressors in order to maintain hemodynamic status while dialysis occurs. The patient is been accepted for transfer to [facility] at the [facility], however they currently do not have a bed available so hemodialysis will be initiated [facility]. Overall, the patient feels about the same as she has. She has no acute complaints this morning. Objective - Vital Signs Vital signs: Vital Signs Temp Pulse Resp BP Pulse Ox 02/07/18 07:59 99.1 F 02/07/18 07:30 103 19 89/52 100 02/07/18 06:00 98 18 105/52 98 02/07/18 05:00 100 15 94/53 99 02/07/18 04:00 99.1 F 102 23 107/50 100 02/07/18 03:32 99 02/07/18 03:00 99 22 95/47 100 02/07/18 02:00 104 23 104/48 98 02/07/18 01:00 104 22 96/50 97 02/07/18 00:00 101.7 F H 117 23 114/53 100 02/06/18 23:00 112 22 115/60 98 02/06/18 22:00 107 22 125/63 100 02/06/18 21:00 114 22 124/67 98 02/06/18 20:21 99.7 F H 02/06/18 20:00 117 24 123/65 99 02/06/18 19:41 114 02/06/18 19:00 112 24 105/58 100 02/06/18 18:18 114 25 124/56 98 02/06/18 17:38 100.0 F H 110 24 116/48 99 02/06/18 16:04 100.2 F H 105 16 86/56 100 02/06/18 10:57 100.8 F H 114 16 108/60 98 Intake and Output 02/06/18 02/07/18 02/07/18 23:59 07:59 15:59 Intake Total 120 / 120 1000 / 1000 Output Total 300 / 300 600 / 600 Balance -180 / -180 400 / 400 Intake: IV Fluids 1000 / 1000 0.9 % Sodium Chloride 1,000 ML 1000 / 1000 @ 75 mls/hr IVC .[id number] [facility] Rx #:[id number] Oral 120 / 120 Output: Urine 300 / 300 600 / 600 Other: Meal Breakfast Percent of Meal Consumed 10% Stool Size Small Smear Stool Consistency loose soft Stool Color Brown Green Green # Voids 1 1 # Urine Diapers 1 # Bowel Movement Diapers 1 Blood Glucose* 66 67 - General Appearance Exam: Gen: Vitals noted. No acute distress. HEENT: Normocephalic, atraumatic Neck: Supple. No adenopathy. Cardiac: RRR, no murmur was appreciated today. +S1/S2 Pulmonary: Bilaterally diminished, no wheezes, rales or rhonchi, equal chest expansion Abdomen: soft, nontender, BS noted, no guarding Back: Nontender throughout. Extremities: 1+ edema in the feet bilaterally, nontender calf, no cyanosis or clubbing Neuro: A&Ox3, moves all extremities, no focal deficits Psych: Appropriate mood and behavior - Lab 02/07/18 04:10 02/07/18 04:10 Most recent lab results Calcium 7.0 mg/dL (8.6-10.3) L 02/07/18 04:10 Phosphorus 2.5 mg/dL (2.7-4.5) L 02/07/18 04:10 Magnesium 1.3 mg/dL (1.6-2.6) L 02/07/18 04:10 Urine Creatinine 31 mg/dL 02/06/18 03:10 Urine Sodium 32.5 mEq/L 02/06/18 03:10 Urine Total Protein 23 mg/dL (1-14) H 02/06/18 03:10 - VTE Documentation of Mechanical Device: Intermittent pneumatic compression device Consult Discharge Plan - Plan Referrals: Leta Akins MD [Primary Care Provider] -
[2018-02-07] MEDS ORDERED: *HR* Heparin 5,000 UNIT/ML VIAL ONE (11:57)
--- NOTE | 2018-02-07 12:13 | IR Procedure Note ---
Date of procedure: 02/07/18 Consent Obtained: Written consent Timeout: Correct patient and procedure verified, Time out performed, Skin prep completed Local anesthetic: Lidocaine 1% Indications: ARF Procedure Performed: Temp dialysis catheter placement Was there an marketing support assistant present: No Results/Findings: RIJ 15.5fr 15cm temp dialysis catheter placement Estimated blood loss (cc): 0 Complications: None; Tolerated procedure well Post Procedure Treatment Plan: Monitor on floor Specimen: None
[2018-02-07 12:17] LABS: Hepatitis B Surface Antigen Nonreactive (Nonreactive)
[2018-02-07] MEDS ORDERED: 0.9 % Sodium Chloride 1,000 ML ONE (13:11)
[2018-02-07] MEDS: methylPREDNISolone 125 MG/2 ML VIAL IVP SCH ×2 (13:16→19:51)
--- NOTE | 2018-02-07 13:39 | Oncology Inp Progress Note ---
<Ezequiel Peraza - Last Filed: 02/07/18 18:13> Date of Encounter: 02/07/18 Time of Encounter: 13:39 (1) Diarrhea Current Visit: Yes Status: Acute Assessment and plan: Etiology unclear. Patient continues to have diarrhea but frequency is decreasing. Concern for immune mediated colitis in the setting of checkpoint inhibitor immunotherapy. This appears less likely as the patient is gradually improving and she is not having any pain however given that her symptoms are persisting and along with her acute kidney injury of unknown etiology we will initiate Solu-Medrol 125 mg 3 times a day. Qualifiers: Diarrhea type: unspecified type Qualified Code(s): R19.7 - Diarrhea, unspecified (2) DINAH (acute kidney injury) Current Visit: Yes Status: Acute Assessment and plan: Etiology unclear. Nephrology following. Immune mediated nephritis is a rare complication of checkpoint inhibitor immune therapy but given the unknown cause of the patient's renal dysfunction we have instituted steroid therapy with Solu- Medrol 125 mg 3 times a day as discussed above. (3) Malignant melanoma Current Visit: Yes Status: Chronic Assessment and plan: Status post surgery, on adjuvant therapy with yervoy/nivolumab. Follows at [facility]. Week 3 of Yervoy was approximately a week ago. Patient requests transfer to [facility] where she receives her oncologic care. Qualifiers: Melanoma location: unspecified site Qualified Code(s): C43.9 - Malignant melanoma of skin, unspecified (4) Pancytopenia Current Visit: Yes Status: Acute Assessment and plan: Blood counts stable. No evidence of active bleeding. Possibly related to sepsis. (5) Sepsis Current Visit: Yes Status: Acute Assessment and plan: Likely secondary to pneumonia. Further management per primary. Qualifiers: Sepsis type: sepsis due to unspecified organism Qualified Code(s): A41.9 - Sepsis, unspecified organism (6) Pneumonia Current Visit: Yes Status: Acute Qualifiers: Pneumonia type: due to unspecified organism Laterality: right Lung location: lower lobe of lung Qualified Code(s): J18.1 - Lobar pneumonia, unspecified organism Oncology: Subj Interval history: Patient seen and examined at bedside. Patient states that overall she generally feels better. She does report feeling significantly fatigued. She does feel that her diarrhea has decreased although she estimates that she has had about 6 bowel movements in the last 24 hours. She denies blood in the bowel movements. - Constitutional Vitals: Vital Signs Temp Pulse Resp BP Pulse Ox 02/07/18 12:30 113 19 108/54 96 02/07/18 11:30 102.2 F H 117 20 121/78 96 02/07/18 10:30 111 20 101/47 98 02/07/18 09:30 107 19 106/76 96 02/07/18 08:30 103 20 126/55 96 02/07/18 07:59 99.1 F 02/07/18 07:30 103 19 89/52 100 02/07/18 06:00 98 18 105/52 98 02/07/18 05:00 100 15 94/53 99 02/07/18 04:00 99.1 F 102 23 107/50 100 02/07/18 03:32 99 02/07/18 03:00 99 22 95/47 100 02/07/18 02:00 104 23 104/48 98 02/07/18 01:00 104 22 96/50 97 02/07/18 00:00 101.7 F H 117 23 114/53 100 02/06/18 23:00 112 22 115/60 98 02/06/18 22:00 107 22 125/63 100 02/06/18 21:00 114 22 124/67 98 02/06/18 20:21 99.7 F H 02/06/18 20:00 117 24 123/65 99 02/06/18 19:41 114 02/06/18 19:00 112 24 105/58 100 02/06/18 18:18 114 25 124/56 98 02/06/18 17:38 100.0 F H 110 24 116/48 99 02/06/18 16:04 100.2 F H 105 16 86/56 100 Intake and Output 02/06/18 02/07/18 02/07/18 23:59 07:59 15:59 Intake Total 120 / 120 1000 / 1000 240 / 240 Output Total 300 / 300 600 / 600 300 / 300 Balance -180 / -180 400 / 400 -60 / -60 Intake: IV Fluids 1000 / 1000 0.9 % Sodium Chloride 1,000 ML 1000 / 1000 @ 75 mls/hr IVC .[id number] Rx #:[id number] Oral 120 / 120 240 / 240 Output: Urine 300 / 300 600 / 600 300 / 300 Other: Meal Breakfast Percent of Meal Consumed 10% Stool Size Small Smear Small Stool Consistency loose loose soft Stool Color Brown Green Yellow Green # Voids 1 1 # Urine Diapers 1 # Bowel Movement Diapers 1 Blood Glucose* 66 67 - Respiratory Respiratory exam: Present: decreased breath sounds. Absent: rales, rhonchi - Cardiovascular Cardiovascular exam: Present: RRR - GI/Abdominal GI/Abdominal exam: Present: soft. Absent: tenderness - Extremities Exam Extremities exam: Absent: pedal edema Oncology: Obj Data - Labs CBC & Chem 7: 02/07/18 04:10 02/07/18 04:10 Labs: Laboratory Results - last 24 hr 02/06/18 02/06/18 02/06/18 12:19 17:02 20:21 WBC RBC Hgb Hct MCV MCH MCHC RDW Plt Count MPV Immature Gran % Seg Neutrophils % Lymphocytes % Monocytes % Eosinophils % Basophils % Neutrophils # Lymphocytes # Monocytes # Eosinophils # Basophils # PT INR Sodium Potassium Chloride Carbon Dioxide BUN Creatinine Est GFR ( Amer) Est GFR (Non-Af Amer) BUN/Creatinine Ratio Glucose POC Glucose 91 70 63 L Calculated Osmolality Calcium Venous Ioniz Calcium Phosphorus Magnesium Total Bilirubin AST ALT Alkaline Phosphatase Creatine Kinase Serum Total Protein Albumin Globulin Albumin/Globulin Ratio Hep Bs Antigen Hep Bs Antibody 02/06/18 02/06/18 02/07/18 21:20 23:47 04:10 WBC 3.5 L RBC 3.86 Hgb 9.8 L Hct 29.4 L MCV 76.2 L MCH 25.4 L MCHC 33.3 RDW 20.1 H Plt Count 101 L MPV 10.3 Immature Gran % 3.8 Seg Neutrophils % 58.9 Lymphocytes % 22.0 Monocytes % 12.1 Eosinophils % 2.9 Basophils % 0.3 Neutrophils # 2.0 Lymphocytes # 0.8 Monocytes # 0.4 Eosinophils # 0.1 Basophils # 0.0 PT INR Sodium Potassium Chloride Carbon Dioxide BUN Creatinine Est GFR ( Amer) Est GFR (Non-Af Amer) BUN/Creatinine Ratio Glucose POC Glucose 66 L 67 L Calculated Osmolality Calcium Venous Ioniz Calcium Phosphorus Magnesium Total Bilirubin AST ALT Alkaline Phosphatase Creatine Kinase Serum Total Protein Albumin Globulin Albumin/Globulin Ratio Hep Bs Antigen Hep Bs Antibody 02/07/18 02/07/18 02/07/18 04:10 04:10 04:46 WBC RBC Hgb Hct MCV MCH MCHC RDW Plt Count MPV Immature Gran % Seg Neutrophils % Lymphocytes % Monocytes % Eosinophils % Basophils % Neutrophils # Lymphocytes # Monocytes # Eosinophils # Basophils # PT 16.5 H INR 1.5 Sodium 137 Potassium 3.4 L Chloride 107 Carbon Dioxide 20 L BUN 11 Creatinine 5.07 H Est GFR ( Amer) 11 L Est GFR (Non-Af Amer) 9 L BUN/Creatinine Ratio 2 L Glucose 80 POC Glucose Calculated Osmolality 282 Calcium 7.0 L Venous Ioniz Calcium 0.94 L Phosphorus 2.5 L Magnesium 1.3 L Total Bilirubin 1.3 H AST 31 ALT 27 Alkaline Phosphatase 123 H Creatine Kinase 46 Serum Total Protein 4.1 L Albumin 2.1 L Globulin 2.0 L Albumin/Globulin Ratio 1.1 Hep Bs Antigen Hep Bs Antibody 02/07/18 09:40 WBC RBC Hgb Hct MCV MCH MCHC RDW Plt Count MPV Immature Gran % Seg Neutrophils % Lymphocytes % Monocytes % Eosinophils % Basophils % Neutrophils # Lymphocytes # Monocytes # Eosinophils # Basophils # PT INR Sodium Potassium Chloride Carbon Dioxide BUN Creatinine Est GFR ( Amer) Est GFR (Non-Af Amer) BUN/Creatinine Ratio Glucose POC Glucose Calculated Osmolality Calcium Venous Ioniz Calcium Phosphorus Magnesium Total Bilirubin AST ALT Alkaline Phosphatase Creatine Kinase Serum Total Protein Albumin Globulin Albumin/Globulin Ratio Hep Bs Antigen Nonreactive Hep Bs Antibody 0.00 - Impressions Impressions Guidance Ultrasound 02/07/18 00:00 IMPRESSION: 1. Right internal jugular vein temporary dialysis catheter placement as discussed above. D/ / Rebel Arenas MD / Rebel Arenas MD Interpreting Provider: Rebel Arenas MD Insertion Non-Tunneled Catheter 02/07/18 00:00 IMPRESSION: 1. Right internal jugular vein temporary dialysis catheter placement as discussed above. D/ / Rebel Arenas MD / Rebel Arenas MD Interpreting Provider: Rebel Arenas MD Chest X-Ray 02/07/18 11:58 IMPRESSION: 1. Right jugular temporary dialysis catheter placement with the tip at the cavoatrial junction and no immediate complications. 2. Vague densities involving the right upper and lower lung zones likely representing atelectasis and/or infiltrate. Follow-up to resolution is recommended. D/ / Rebel Arenas MD / Rebel Arenas MD Interpreting Provider: Rebel Arenas MD - ABG Interpretation ABG results: PT/INR, D-dimer PT 16.5 Seconds (9.4-12.1) H 02/07/18 04:10 Consult Discharge Plan - Plan Referrals: Leta Akins MD [Primary Care Provider] - <Carl Nina - Last Filed: 02/07/18 22:38> Date of Encounter: 02/07/18 - Constitutional Vitals: Vital Signs Temp Pulse Resp BP Pulse Ox 02/07/18 22:00 104 12 111/59 98 02/07/18 21:00 103 15 105/62 98 02/07/18 20:25 99.7 F H 02/07/18 20:00 104 18 103/61 98 02/07/18 19:00 105 28 93/64 97 02/07/18 18:00 115 19 125/64 98 02/07/18 17:09 99.7 F H 20 134/64 02/07/18 17:00 115 20 108/68 98 02/07/18 16:45 120/71 02/07/18 16:40 107/64 02/07/18 16:25 124/69 02/07/18 16:10 127/66 02/07/18 16:00 109 19 123/72 98 02/07/18 15:55 130/64 02/07/18 15:40 142/70 02/07/18 15:25 124/64 02/07/18 15:10 125/61 02/07/18 15:00 112 19 125/61 98 02/07/18 14:55 99.9 F H 20 99/56 02/07/18 14:00 115 20 98/55 98 02/07/18 13:15 120 19 108/50 98 02/07/18 12:45 114 20 97 02/07/18 12:30 117 19 108/54 98 02/07/18 12:13 117 19 101/70 99 02/07/18 11:30 102.2 F H 117 20 121/78 96 02/07/18 10:30 111 20 101/47 98 02/07/18 09:30 107 19 106/76 96 02/07/18 08:30 103 20 126/55 96 02/07/18 07:59 99.1 F 02/07/18 07:30 103 19 89/52 100 02/07/18 06:00 98 18 105/52 98 02/07/18 05:00 100 15 94/53 99 02/07/18 04:00 99.1 F 102 23 107/50 100 02/07/18 03:32 99 02/07/18 03:00 99 22 95/47 100 02/07/18 02:00 104 23 104/48 98 02/07/18 01:00 104 22 96/50 97 02/07/18 00:00 101.7 F H 117 23 114/53 100 02/06/18 23:00 112 22 115/60 98 Intake and Output 02/07/18 02/07/18 02/08/18 08:59 16:59 00:59 Intake Total 1000 / 1000 1080 / 1080 Output Total 400 / 400 500 / 500 857 / 857 Balance 600 / 600 580 / 580 -857 / -857 Intake: IV Fluids 1000 / 1000 0.9 % Sodium Chloride 1,000 ML 1000 / 1000 @ 75 mls/hr IVC .[id number] Rx #:[id number] Oral 480 / 480 Intake, Rinseback and Flushes 600 / 600 Output: Urine 400 / 400 500 / 500 300 / 300 Total Dialysis (HD) Output 557 / 557 Other: Stool Size Smear Smear Stool Consistency loose Stool Color Green Yellow # Voids 1 # Urine Diapers 1 # Bowel Movement Diapers 1 Blood Glucose* 155 Hemodialysis Net Fluid Removed 557 0 (mL) Oncology: Obj Data - Labs CBC & Chem 7: 02/07/18 04:10 02/07/18 04:10 Labs: Laboratory Results - last 24 hr 02/06/18 02/06/18 02/06/18 12:19 17:02 23:47 WBC RBC Hgb Hct MCV MCH MCHC RDW Plt Count MPV Immature Gran % Seg Neutrophils % Lymphocytes % Monocytes % Eosinophils % Basophils % Neutrophils # Lymphocytes # Monocytes # Eosinophils # Basophils # PT INR Sodium Potassium Chloride Carbon Dioxide BUN Creatinine Est GFR ( Amer) Est GFR (Non-Af Amer) BUN/Creatinine Ratio Glucose POC Glucose 91 70 67 L Calculated Osmolality Calcium Venous Ioniz Calcium Phosphorus Magnesium Total Bilirubin AST ALT Alkaline Phosphatase Creatine Kinase Serum Total Protein Albumin Globulin Albumin/Globulin Ratio Hep Bs Antigen Hep Bs Antibody 02/07/18 02/07/18 02/07/18 04:10 04:10 04:10 WBC 3.5 L RBC 3.86 Hgb 9.8 L Hct 29.4 L MCV 76.2 L MCH 25.4 L MCHC 33.3 RDW 20.1 H Plt Count 101 L MPV 10.3 Immature Gran % 3.8 Seg Neutrophils % 58.9 Lymphocytes % 22.0 Monocytes % 12.1 Eosinophils % 2.9 Basophils % 0.3 Neutrophils # 2.0 Lymphocytes # 0.8 Monocytes # 0.4 Eosinophils # 0.1 Basophils # 0.0 PT 16.5 H INR 1.5 Sodium 137 Potassium 3.4 L Chloride 107 Carbon Dioxide 20 L BUN 11 Creatinine 5.07 H Est GFR ( Amer) 11 L Est GFR (Non-Af Amer) 9 L BUN/Creatinine Ratio 2 L Glucose 80 POC Glucose Calculated Osmolality 282 Calcium 7.0 L Venous Ioniz Calcium Phosphorus 2.5 L Magnesium 1.3 L Total Bilirubin 1.3 H AST 31 ALT 27 Alkaline Phosphatase 123 H Creatine Kinase 46 Serum Total Protein 4.1 L Albumin 2.1 L Globulin 2.0 L Albumin/Globulin Ratio 1.1 Hep Bs Antigen Hep Bs Antibody 02/07/18 02/07/18 04:46 09:40 WBC RBC Hgb Hct MCV MCH MCHC RDW Plt Count MPV Immature Gran % Seg Neutrophils % Lymphocytes % Monocytes % Eosinophils % Basophils % Neutrophils # Lymphocytes # Monocytes # Eosinophils # Basophils # PT INR Sodium Potassium Chloride Carbon Dioxide BUN Creatinine Est GFR ( Amer) Est GFR (Non-Af Amer) BUN/Creatinine Ratio Glucose POC Glucose Calculated Osmolality Calcium Venous Ioniz Calcium 0.94 L Phosphorus Magnesium Total Bilirubin AST ALT Alkaline Phosphatase Creatine Kinase Serum Total Protein Albumin Globulin Albumin/Globulin Ratio Hep Bs Antigen Nonreactive Hep Bs Antibody 0.00 - Impressions Impressions Guidance Ultrasound 02/07/18 00:00 IMPRESSION: 1. Right internal jugular vein temporary dialysis catheter placement as discussed above. D/ / Rebel Arenas MD / Rebel Aernas MD Interpreting Provider: Rebel Arenas MD Insertion Non-Tunneled Catheter 02/07/18 00:00 IMPRESSION: 1. Right internal jugular vein temporary dialysis catheter placement as discussed above. D/ / Rebel Arenas MD / Rebel Arenas MD Interpreting Provider: Rebel Arenas MD Chest X-Ray 02/07/18 11:58 IMPRESSION: 1. Right jugular temporary dialysis catheter placement with the tip at the cavoatrial junction and no immediate complications. 2. Vague densities involving the right upper and lower lung zones likely representing atelectasis and/or infiltrate. Follow-up to resolution is recommended. D/ / Rebel Arenas MD / Rebel Arenas MD Interpreting Provider: Rebel Arenas MD - ABG Interpretation ABG results: PT/INR, D-dimer PT 16.5 Seconds (9.4-12.1) H 02/07/18 04:10 Inpatient Charges Provider: Dr. Storm Nina Follow Up: [id number] - Attending Attestation I examined this patient and my medical decision-making was reviewed with the resident. I agree with the documented findings, disposition and treatment plan as described except to the extent set forth below. Ms. Orellana is undergoing palliative ipilimumab/nivolumab under the care of Dr. Armendariz at [facility]. She has developed severe diarrhea with associated DINAH thought secondary to ATN from diarrhea. She underwent HD today. I have initiated solumedrol today given persistent, albeit improving, diarrhea as well as remote possibility of immune- mediated nephritis. Transfer is pending to [facility].
[2018-02-07] MEDS ORDERED: Magnesium Sulfate 2 GM in D5% in Water 100 ML IVPB ONE (15:00)
[2018-02-07] MEDS: *HR* Enoxaparin 30 MG/0.3 ML SYRINGE SQ SCH (17:03)
--- NOTE | 2018-02-07 17:49 | Internal Med Progress Note ---
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 per nephrology and IR was consulted for temporary dialysis catheter Patient is still on the list to be transferred to [facility] when beds available - Exam Vitals: Temp Pulse Resp BP Pulse Ox 99.7 F H 110 20 134/64 98 02/07/18 17:09 02/07/18 16:00 02/07/18 17:09 02/07/18 17:09 02/07/18 16:00 Exam: Gen.: Nonacute distress, alert and oriented 3 ENT: Mucosal membranes moist Respiratory: Lungs are clear to auscultation bilaterally without any wheezing rhonchi or rales Cardiovascular: Normal S1 and S2 regular rate rhythm no murmurs rubs or gallops Abdomen: Soft, nontender and nondistended with positive bowel sounds Extremities: No lower extremity edema Skin: Pale - Assessment and Plan (1) Pneumonia Current Visit: Yes Status: Acute Assessment and Plan: Repeat chest x-ray shows possible worsening infiltrate and patient with continued intermittent fevers with neutropenia. Urine streptococcal and legionella antigen negative. Arriaga cultures ordered Will continue IV Levaquin and consult infectious disease for any further recommendations. (2) Sepsis Current Visit: Yes Status: Acute Assessment and Plan: Patient with fever, tachycardia, leukopenia. Possible source of infection is pneumonia. Will continue IV antibiotic as above and consult infectious disease for additional recommendations (3) Acute renal failure (ARF) Current Visit: Yes Status: Acute Assessment and Plan: Renal function without any improvement today and creatinine now 5.07 from 4.23 yesterday Nephrology following with recommendations for TRUCK DRIVER HEAVY today (4) Hypokalemia Current Visit: Yes Status: Acute Assessment and Plan: Potassium 3.4 today; continue to monitor with acute renal failure above (5) Malignant melanoma Current Visit: Yes Status: Chronic Assessment and Plan: Of labia/vulva; status post surgery. Currently on immunotherapy with Nevolumab and Ipilimumab; follows with [facility] as outpatient Otology/oncology consulted and appreciate recommendations Patient requesting to be transferred to [facility] for further management (6) Diabetes mellitus Current Visit: Yes Status: Chronic Assessment and Plan: Blood sugars noted to be well controlled. Hold oral hypoglycemics while in the hospital. Continue Accu-Chek blood glucose monitoring with sliding scale insulin if needed. Diabetic diet. (7) DVT prophylaxis Current Visit: Yes Status: Acute Assessment and Plan: Subcutaneous Lovenox - Time Spent with Patient Total time spent is greater than 50% in coordination of care (as documented) at patient's floor/unit and/or counseling patient: Internal Medicine: Result - Labs CBC & Chem 7: 02/07/18 04:10 02/07/18 04:10 Labs: Short CBC 02/07/18 Range/Units 04:10 WBC 3.5 L (4.3-11.1) K/mcL Hgb 9.8 L (11.5-15.4) g/dL Hct 29.4 L (35.3-44.9) % Plt Count 101 L (140-400) K/mcL Neutrophils # 2.0 (1.6-8.9) K/mcL BMP 02/07/18 04:10 Sodium 137 Potassium 3.4 L Chloride 107 Carbon Dioxide 20 L BUN 11 Creatinine 5.07 H Glucose 80 Calcium 7.0 L Liver Function 02/07/18 Range/Units 04:10 Total Bilirubin 1.3 H (0.3-1.0) mg/dL AST 31 (13-39) Units/L ALT 27 (7-52) Units/L Alkaline Phosphatase 123 H (34-104) Units/L Albumin 2.1 L (3.5-5.7) g/dL - ABG Interpretation ABG results: PT/INR, D-dimer PT 16.5 Seconds (9.4-12.1) H 02/07/18 04:10 - Impressions Impressions Guidance Ultrasound 02/07/18 00:00 IMPRESSION: 1. Right internal jugular vein temporary dialysis catheter placement as discussed above. D/ / Rebel Arenas MD / Rebel Arenas MD Interpreting Provider: Rebel Arenas MD Insertion Non-Tunneled Catheter 02/07/18 00:00 IMPRESSION: 1. Right internal jugular vein temporary dialysis catheter placement as discussed above. D/ / Rebel Arenas MD / Rebel Arenas MD Interpreting Provider: Rebel Arenas MD Chest X-Ray 02/07/18 11:58 IMPRESSION: 1. Right jugular temporary dialysis catheter placement with the tip at the cavoatrial junction and no immediate complications. 2. Vague densities involving the right upper and lower lung zones likely representing atelectasis and/or infiltrate. Follow-up to resolution is recommended. D/ / Rebel Arenas MD / Rebel Arenas MD Interpreting Provider: Rebel Arenas MD - VTE Documentation of Mechanical Device: Intermittent pneumatic compression device Consult Discharge Plan - Plan Referrals: Leta Akins MD [Primary Care Provider] - (1) Pneumonia Qualifiers: Pneumonia type: due to unspecified organism Laterality: right Lung location : lower lobe of lung Qualified Code(s): J18.1 - Lobar pneumonia, unspecified organism (2) Sepsis Qualifiers: Sepsis type: sepsis due to unspecified organism Qualified Code(s): A41.9 - Sepsis, unspecified organism (5) Malignant melanoma Qualifiers: Melanoma location: unspecified site Qualified Code(s): C43.9 - Malignant melanoma of skin, unspecified (6) Diabetes mellitus Qualifiers: Diabetes mellitus type: type 2 Diabetes mellitus shelter insulin use: without shelter use Diabetes mellitus complication status: without complication Qualified Code(s): E11.9 - Type 2 diabetes mellitus without complications
[2018-02-08] MEDS: methylPREDNISolone 125 MG/2 ML VIAL IVP SCH ×3 (03:35→18:25)
[2018-02-08 03:49] LABS: Hematocrit 31.2 % (35.3-44.9); Hemoglobin 10.5 g/dL (11.5-15.4); Immature Platelets 7.2 % (1.1-6.1); Mean Corpuscular HGB Conc 33.7 g/dL (31.6-35.5); Mean Corpuscular Hemoglobin 25.5 pg (28.0-33.3); Mean Corpuscular Volume 75.7 fL (83.0-100.0); Mean Platelet Volume 10.4 fL (9.4-12.4); Monocytes # 0.1 K/mcL (0.0-1.3); Red Blood Count 4.12 M/mcL (3.82-4.97); Red Cell Distribution Width 20.5 % (11.5-14.5)
[2018-02-08 03:49] LABS: VBG Ionized Calcium 1.06 mmol/L (1.15-1.35)
[2018-02-08 04:06] LABS: Platelet Count 73 K/mcL (140-400)
[2018-02-08 04:10] LABS: Anisocytosis 2+ (Not Present); Calcium 7.7 mg/dL (8.6-10.3); Lymphocytes # 1.1 K/mcL (0.6-4.6); Magnesium 2.1 mg/dL (1.6-2.6); Microcytosis Present (Not Present); Neutrophils # 4.1 K/mcL (1.6-8.9); Phosphorous 2.8 mg/dL (2.7-4.5); Platelet Estimate Decreased (Normal); Polychromasia 1+ (Not Present); Potassium 3.7 mEq/L (3.5-5.1); Reactive Lymphocytes Present (Not Present); Smudge Cells Present (Not Present)
[2018-02-08] MEDS ORDERED: 0.9 % Sodium Chloride 250 ML IVC PRN (07:27)
[2018-02-08] MEDS: *HR* Enoxaparin 30 MG/0.3 ML SYRINGE SQ SCH (07:54)
[2018-02-08] MEDS ORDERED: 0.9 % Sodium Chloride 2,000 ML ONE (08:06)
--- NOTE | 2018-02-08 08:07 | Nephrology Progress Note ---
Date of Encounter: 02/08/18 Time of Encounter: 08:25 - Assessment and Plan (1) DINAH (acute kidney injury) Current Visit: Yes Status: Acute Acute kidney injury on hemodialysis Receive hemodialysis yesterday and today, improving Etiology is likely secondary to sepsis and prerenal causes with some ATN in setting of vancomycin and hypertension. Do not suspect immune complex glomerulonephritis at this time Patient has maintained some elements of sepsis throughout her stay however this seems to have improved to some extent. No longer febrile, maintained tachycardic, however blood pressure has improved and is not requiring pressors Urine output has continued to increase, she had 1400 out yesterday and at the time of writing this patient is a 30 had 500 mL out today. The patient also states that she is no longer having as many loose stools and she is starting to have formed stools instead Plan We will continue with plan for hemodialysis today Plan for 500 mL fluid removal with ultrafiltration today We will check the patient in the morning for possible need for hemodialysis however she may be stable enough to forego hemodialysis pending evaluation morning Avoid all nephrotoxic agents (2) Sepsis Current Visit: Yes Status: Acute Sepsis secondary to pneumonia however has largely resolved Patient appears to no longer be febrile, however does have some tachycardia and tachypnea on occasion Management per primary team, infectious disease has been counseled Recommend avoidance of vancomycin Qualifiers: Qualified Code(s): A41.9 - Sepsis, unspecified organism (3) Diarrhea Current Visit: Yes Status: Acute Improving significantly Continue to monitor, replace fluids as needed Qualifiers: Qualified Code(s): R19.7 - Diarrhea, unspecified (4) Malignant melanoma Current Visit: Yes Status: Chronic Management per hematology oncology Qualifiers: Qualified Code(s): C43.9 - Malignant melanoma of skin, unspecified Subjective Principal diagnosis: DINAH Interval history: The patient is resting in bed at time of examination. She says that she is feeling significantly better than she did yesterday. She did have hemodialysis for the first time yesterday and says that overall she tolerated it very well complications. She has no acute complaints this morning. Patient is still awaiting a bed at the [facility]. Objective - Vital Signs Vital signs: Vital Signs Temp Pulse Resp BP Pulse Ox 02/08/18 07:23 98.1 F 02/08/18 06:00 100 19 107/68 96 02/08/18 05:00 100 22 118/53 97 02/08/18 04:18 98.0 F 02/08/18 04:00 97 21 109/65 98 02/08/18 03:00 91 21 125/66 99 02/08/18 02:00 92 15 98/56 95 02/08/18 01:00 97 14 101/57 93 02/08/18 00:13 98.6 F 02/07/18 23:45 102 02/07/18 23:00 105 17 131/69 98 02/07/18 22:00 104 12 111/59 98 02/07/18 21:00 103 15 105/62 98 02/07/18 20:25 99.7 F H 02/07/18 20:00 104 18 103/61 98 02/07/18 19:00 105 28 93/64 97 02/07/18 18:00 115 19 125/64 98 02/07/18 17:09 99.7 F H 20 134/64 02/07/18 17:00 115 20 108/68 98 02/07/18 16:45 120/71 02/07/18 16:40 107/64 02/07/18 16:25 124/69 02/07/18 16:10 127/66 02/07/18 16:00 109 19 123/72 98 02/07/18 15:55 130/64 02/07/18 15:40 142/70 02/07/18 15:25 124/64 02/07/18 15:10 125/61 02/07/18 15:00 112 19 125/61 98 02/07/18 14:55 99.9 F H 20 99/56 02/07/18 14:00 115 20 98/55 98 02/07/18 13:15 120 19 108/50 98 02/07/18 12:45 114 20 97 02/07/18 12:30 117 19 108/54 98 02/07/18 12:13 117 19 101/70 99 02/07/18 11:30 102.2 F H 117 20 121/78 96 02/07/18 10:30 111 20 101/47 98 02/07/18 09:30 107 19 106/76 96 02/07/18 08:30 103 20 126/55 96 Intake and Output 02/07/18 02/08/18 02/08/18 23:59 07:59 15:59 Output Total 857 / 857 300 / 300 Balance -857 / -857 -300 / -300 Output: Urine 300 / 300 300 / 300 Total Dialysis (HD) Output 557 / 557 Other: Stool Size Small Stool Consistency loose Stool Color Brown # Bowel Movements 1 Weight 78.8 kg Blood Glucose* 155 225 Hemodialysis Net Fluid Removed 0 (mL) Patient Weight 02/08/18 23:59 Weight 78.8 kg - General Appearance Exam: Gen: Vitals noted. No acute distress. HEENT: Normocephalic, atraumatic Neck: Supple. No adenopathy. Cardiac: RRR, no murmur was appreciated today. +S1/S2 Pulmonary: Bilaterally diminished, no wheezes, rales or rhonchi, equal chest expansion Abdomen: soft, nontender, BS noted, no guarding Back: Nontender throughout. Extremities: 1+ edema in the feet bilaterally, nontender calf, no cyanosis or clubbing Neuro: A&Ox3, moves all extremities, no focal deficits Psych: Appropriate mood and behavior - Lab 02/08/18 03:38 02/08/18 03:38 Most recent lab results Calcium 7.7 mg/dL (8.6-10.3) L 02/08/18 03:38 Phosphorus 2.8 mg/dL (2.7-4.5) 02/08/18 03:38 Magnesium 2.1 mg/dL (1.6-2.6) 02/08/18 03:38 Urine Creatinine 31 mg/dL 02/06/18 03:10 Urine Sodium 32.5 mEq/L 02/06/18 03:10 Urine Total Protein 23 mg/dL (1-14) H 02/06/18 03:10 - VTE Documentation of Mechanical Device: Intermittent pneumatic compression device Consult Discharge Plan - Plan Referrals: Leta Akins MD [Primary Care Provider] -
--- NOTE | 2018-02-08 09:23 | Oncology Inp Progress Note ---
<Eezquiel Peraza - Last Filed: 02/08/18 17:25> Date of Encounter: 02/08/18 Time of Encounter: 09:20 (1) Diarrhea Current Visit: Yes Status: Acute Assessment and plan: Etiology unclear. Patient reports much improved from yesterday. Continue Solu- Medrol 125 mg 3 times a day for now. Qualifiers: Diarrhea type: unspecified type Qualified Code(s): R19.7 - Diarrhea, unspecified (2) DINAH (acute kidney injury) Current Visit: Yes Status: Acute Assessment and plan: Etiology unclear. Nephrology following, patient received HD yesterday, and will receive again today. 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 (3) Malignant melanoma Current Visit: Yes Status: Chronic Assessment and plan: Status post surgery, on adjuvant therapy with yervoy/nivolumab. Follows at [facility]. Week 3 of Yervoy was approximately a week ago. Patient requests transfer to [facility] where she receives her oncologic care. Qualifiers: Melanoma location: unspecified site Qualified Code(s): C43.9 - Malignant melanoma of skin, unspecified (4) Pancytopenia Current Visit: Yes Status: Acute Assessment and plan: Blood counts stable, WBC improved, likely due to steroids. No evidence of active bleeding. Possibly related to sepsis. (5) Sepsis Current Visit: Yes Status: Acute Assessment and plan: Likely secondary to pneumonia. Further management per primary. Qualifiers: Sepsis type: sepsis due to unspecified organism Qualified Code(s): A41.9 - Sepsis, unspecified organism (6) Pneumonia Current Visit: Yes Status: Acute Qualifiers: Pneumonia type: due to unspecified organism Laterality: right Lung location: lower lobe of lung Qualified Code(s): J18.1 - Lobar pneumonia, unspecified organism Oncology: Subj Interval history: Patient seen and examined at bedside. Patient states that she feels much better today. She reports one bowel movement since yesterday evening. She reports her mild epigastric pain has improved. - Constitutional Vitals: Vital Signs Temp Pulse Resp BP Pulse Ox 02/08/18 08:45 98.2 F 20 130/73 02/08/18 07:23 98.1 F 02/08/18 06:00 100 19 107/68 96 02/08/18 05:00 100 22 118/53 97 02/08/18 04:18 98.0 F 02/08/18 04:00 97 21 109/65 98 02/08/18 03:00 91 21 125/66 99 02/08/18 02:00 92 15 98/56 95 02/08/18 01:00 97 14 101/57 93 02/08/18 00:13 98.6 F 02/07/18 23:45 102 02/07/18 23:00 105 17 131/69 98 02/07/18 22:00 104 12 111/59 98 02/07/18 21:00 103 15 105/62 98 02/07/18 20:25 99.7 F H 02/07/18 20:00 104 18 103/61 98 02/07/18 19:00 105 28 93/64 97 02/07/18 18:00 115 19 125/64 98 02/07/18 17:09 99.7 F H 20 134/64 02/07/18 17:00 115 20 108/68 98 02/07/18 16:45 120/71 02/07/18 16:40 107/64 02/07/18 16:25 124/69 02/07/18 16:10 127/66 02/07/18 16:00 109 19 123/72 98 02/07/18 15:55 130/64 02/07/18 15:40 142/70 02/07/18 15:25 124/64 02/07/18 15:10 125/61 02/07/18 15:00 112 19 125/61 98 02/07/18 14:55 99.9 F H 20 99/56 02/07/18 14:00 115 20 98/55 98 02/07/18 13:15 120 19 108/50 98 02/07/18 12:45 114 20 97 02/07/18 12:30 117 19 108/54 98 02/07/18 12:13 117 19 101/70 99 02/07/18 11:30 102.2 F H 117 20 121/78 96 02/07/18 10:30 111 20 101/47 98 02/07/18 09:30 107 19 106/76 96 Intake and Output 02/07/18 02/08/18 02/08/18 23:59 07:59 15:59 Intake Total 600 / 600 Output Total 857 / 857 300 / 300 Balance -857 / -857 -300 / -300 600 / 600 Intake: Intake, Rinseback and Flushes 600 / 600 Output: Urine 300 / 300 300 / 300 Total Dialysis (HD) Output 557 / 557 Other: Stool Size Small Stool Consistency loose Stool Color Brown # Bowel Movements 1 Weight 78.8 kg Blood Glucose* 155 225 Hemodialysis Net Fluid Removed 0 0 (mL) Patient Weight 02/08/18 23:59 Weight 78.8 kg General appearance: no acute distress - Respiratory Respiratory exam: Present: decreased breath sounds. Absent: rales, rhonchi - Cardiovascular Cardiovascular exam: Present: RRR. Absent: diastolic murmur, systolic murmur - GI/Abdominal GI/Abdominal exam: Present: normal bowel sounds, soft. Absent: tenderness - Extremities Exam Extremities exam: Absent: pedal edema - Neurological Exam Neurological exam: Present: alert, oriented X3 Oncology: Obj Data - Labs CBC & Chem 7: 02/08/18 03:38 02/08/18 03:38 Labs: Laboratory Results - last 24 hr 02/07/18 02/07/18 02/07/18 09:40 12:07 19:57 WBC RBC Hgb Hct MCV MCH MCHC RDW Plt Count MPV Seg Neutrophils % Band Neutrophils % Lymphocytes % Monocytes % Neutrophils # Lymphocytes # Monocytes # Reactive Lymphocytes Smudge Cells Platelet Estimate Immature Plt Fraction Polychromasia Anisocytosis Microcytosis Sodium Potassium Chloride Carbon Dioxide BUN Creatinine Est GFR ( Amer) Est GFR (Non-Af Amer) BUN/Creatinine Ratio Glucose POC Glucose 57 L 155 H Calculated Osmolality Calcium Venous Ioniz Calcium Phosphorus Magnesium Hep Bs Antigen Nonreactive Hep Bs Antibody 0.00 02/08/18 02/08/18 02/08/18 03:38 03:38 03:47 WBC 5.3 D RBC 4.12 Hgb 10.5 L Hct 31.2 L MCV 75.7 L MCH 25.5 L MCHC 33.7 RDW 20.5 H Plt Count 73 L MPV 10.4 Seg Neutrophils % 76.0 Band Neutrophils % 2.0 Lymphocytes % 20.0 Monocytes % 2.0 Neutrophils # 4.1 Lymphocytes # 1.1 Monocytes # 0.1 Reactive Lymphocytes Present A Smudge Cells Present A Platelet Estimate Decreased L Immature Plt Fraction 7.2 H Polychromasia 1+ A Anisocytosis 2+ A Microcytosis Present A Sodium 139 Potassium 3.7 Chloride 106 Carbon Dioxide 23 BUN 9 Creatinine 3.80 H Est GFR ( Amer) 15 L Est GFR (Non-Af Amer) 12 L BUN/Creatinine Ratio 2 L Glucose 239 H POC Glucose Calculated Osmolality 294 Calcium 7.7 L Venous Ioniz Calcium 1.06 L Phosphorus 2.8 Magnesium 2.1 Hep Bs Antigen Hep Bs Antibody - Impressions Impressions Guidance Ultrasound 02/07/18 00:00 IMPRESSION: 1. Right internal jugular vein temporary dialysis catheter placement as discussed above. D/ / Rebel Arenas MD / Rebel Arenas MD Interpreting Provider: Rebel Arenas MD Insertion Non-Tunneled Catheter 02/07/18 00:00 IMPRESSION: 1. Right internal jugular vein temporary dialysis catheter placement as discussed above. D/ / Rebel Arenas MD / Rebel Arenas MD Interpreting Provider: Rebel Arenas MD Chest X-Ray 02/07/18 11:58 IMPRESSION: 1. Right jugular temporary dialysis catheter placement with the tip at the cavoatrial junction and no immediate complications. 2. Vague densities involving the right upper and lower lung zones likely representing atelectasis and/or infiltrate. Follow-up to resolution is recommended. D/ / Rebel Arenas MD / Rebel Arenas MD Interpreting Provider: Rebel Arenas MD - ABG Interpretation ABG results: PT/INR, D-dimer PT 16.5 Seconds (9.4-12.1) H 02/07/18 04:10 Consult Discharge Plan - Plan Referrals: Leta Akins MD [Primary Care Provider] - <Carl Nina S - Last Filed: 02/08/18 19:17> Date of Encounter: 02/08/18 - Constitutional Vitals: Vital Signs Temp Pulse Resp BP Pulse Ox 02/08/18 18:00 105 14 148/71 98 02/08/18 17:00 105 20 110/84 98 02/08/18 16:00 110 13 130/88 96 02/08/18 15:45 98.1 F 02/08/18 15:00 111 20 126/78 98 02/08/18 14:00 113 16 137/68 95 02/08/18 13:00 111 12 134/73 98 02/08/18 12:00 108 18 131/66 99 02/08/18 11:30 98.3 F 16 127/65 02/08/18 11:15 117/74 02/08/18 11:00 104 24 127/65 98 02/08/18 10:45 118/62 02/08/18 10:30 128/77 02/08/18 10:15 125/66 02/08/18 10:00 103 16 128/77 96 02/08/18 09:45 124/72 02/08/18 09:30 126/72 02/08/18 09:15 128/76 02/08/18 09:00 107 20 140/89 96 02/08/18 08:45 98.2 F 20 130/73 02/08/18 08:00 101 12 138/79 96 02/08/18 07:23 98.1 F 02/08/18 07:00 101 14 122/71 96 02/08/18 06:00 100 19 107/68 96 02/08/18 05:00 100 22 118/53 97 02/08/18 04:18 98.0 F 02/08/18 04:00 97 21 109/65 98 02/08/18 03:00 91 21 125/66 99 02/08/18 02:00 92 15 98/56 95 02/08/18 01:00 97 14 101/57 93 02/08/18 00:13 98.6 F 02/07/18 23:45 102 02/07/18 23:00 105 17 131/69 98 02/07/18 22:00 104 12 111/59 98 02/07/18 21:00 103 15 105/62 98 02/07/18 20:25 99.7 F H 02/07/18 20:00 104 18 103/61 98 Intake and Output 02/08/18 02/08/18 02/09/18 08:59 16:59 00:59 Intake Total 600 / 600 100 / 100 700 / 700 Output Total 300 / 300 1300 / 1300 Balance 300 / 300 -1200 / -1200 700 / 700 Intake: IV Fluids 100 / 100 Levaquin Premix 500mg/100mL 500 100 / 100 mg In 100 ml @ 100 mls/hr IVPB Q48H [facility] Rx#:[id number] Oral 700 / 700 Intake, Rinseback and Flushes 600 / 600 Output: Urine 300 / 300 200 / 200 Total Dialysis (HD) Output 1100 / 1100 Other: Stool Size Small Small Stool Consistency loose loose Stool Color Brown Brown # Bowel Movements 1 Blood Glucose* 225 321 Hemodialysis Net Fluid Removed 0 500 (mL) Oncology: Obj Data - Labs CBC & Chem 7: 02/08/18 03:38 02/08/18 03:38 Labs: Laboratory Results - last 24 hr 02/07/18 02/07/18 02/08/18 12:07 19:57 03:38 WBC 5.3 D RBC 4.12 Hgb 10.5 L Hct 31.2 L MCV 75.7 L MCH 25.5 L MCHC 33.7 RDW 20.5 H Plt Count 73 L MPV 10.4 Seg Neutrophils % 76.0 Band Neutrophils % 2.0 Lymphocytes % 20.0 Monocytes % 2.0 Neutrophils # 4.1 Lymphocytes # 1.1 Monocytes # 0.1 Reactive Lymphocytes Present A Smudge Cells Present A Platelet Estimate Decreased L Immature Plt Fraction 7.2 H Polychromasia 1+ A Anisocytosis 2+ A Microcytosis Present A Sodium Potassium Chloride Carbon Dioxide BUN Creatinine Est GFR ( Amer) Est GFR (Non-Af Amer) BUN/Creatinine Ratio Glucose POC Glucose 57 L 155 H Calculated Osmolality Calcium Venous Ioniz Calcium Phosphorus Magnesium Chlamy pneumoniae PCR Adenovirus (PCR) B. pertussis DNA (PCR) B.parapertussis DNA PCR Coronavirus OC43 (PCR) Coronavirus HKU1 (PCR) Coronavirus 229E (PCR) Coronavirus NL63 (PCR) Human Metapneumovir PCR Influenza A (H1) PCR Influ A (H1N1/09) PCR Influenza A (H3) PCR Influenza A Untype (PCR) Influenza Type B (PCR) M.pneumoniae DNA (PCR) Parainfluenza 1 (PCR) Parainfluenza 2 (PCR) Parainfluenza 3 (PCR) Parainfluenza 4 (PCR) RSV (PCR) Entero/Rhino (PCR) 02/08/18 02/08/18 02/08/18 03:38 03:47 14:51 WBC RBC Hgb Hct MCV MCH MCHC RDW Plt Count MPV Seg Neutrophils % Band Neutrophils % Lymphocytes % Monocytes % Neutrophils # Lymphocytes # Monocytes # Reactive Lymphocytes Smudge Cells Platelet Estimate Immature Plt Fraction Polychromasia Anisocytosis Microcytosis Sodium 139 Potassium 3.7 Chloride 106 Carbon Dioxide 23 BUN 9 Creatinine 3.80 H Est GFR ( Amer) 15 L Est GFR (Non-Af Amer) 12 L BUN/Creatinine Ratio 2 L Glucose 239 H POC Glucose Calculated Osmolality 294 Calcium 7.7 L Venous Ioniz Calcium 1.06 L 1.04 L Phosphorus 2.8 Magnesium 2.1 Chlamy pneumoniae PCR Adenovirus (PCR) B. pertussis DNA (PCR) B.parapertussis DNA PCR Coronavirus OC43 (PCR) Coronavirus HKU1 (PCR) Coronavirus 229E (PCR) Coronavirus NL63 (PCR) Human Metapneumovir PCR Influenza A (H1) PCR Influ A (H1N1/09) PCR Influenza A (H3) PCR Influenza A Untype (PCR) Influenza Type B (PCR) M.pneumoniae DNA (PCR) Parainfluenza 1 (PCR) Parainfluenza 2 (PCR) Parainfluenza 3 (PCR) Parainfluenza 4 (PCR) RSV (PCR) Entero/Rhino (PCR) 02/08/18 16:52 WBC RBC Hgb Hct MCV MCH MCHC RDW Plt Count MPV Seg Neutrophils % Band Neutrophils % Lymphocytes % Monocytes % Neutrophils # Lymphocytes # Monocytes # Reactive Lymphocytes Smudge Cells Platelet Estimate Immature Plt Fraction Polychromasia Anisocytosis Microcytosis Sodium Potassium Chloride Carbon Dioxide BUN Creatinine Est GFR ( Amer) Est GFR (Non-Af Amer) BUN/Creatinine Ratio Glucose POC Glucose Calculated Osmolality Calcium Venous Ioniz Calcium Phosphorus Magnesium Chlamy pneumoniae PCR Not Detected Adenovirus (PCR) Not Detected B. pertussis DNA (PCR) Not Detected B.parapertussis DNA PCR Not Detected Coronavirus OC43 (PCR) Not Detected Coronavirus HKU1 (PCR) Not Detected Coronavirus 229E (PCR) Not Detected Coronavirus NL63 (PCR) Not Detected Human Metapneumovir PCR Not Detected Influenza A (H1) PCR Not Detected Influ A (H1N1/09) PCR Not Detected Influenza A (H3) PCR Not Detected Influenza A Untype (PCR) Not Detected Influenza Type B (PCR) Not Detected M.pneumoniae DNA (PCR) Not Detected Parainfluenza 1 (PCR) Not Detected Parainfluenza 2 (PCR) Not Detected Parainfluenza 3 (PCR) Not Detected Parainfluenza 4 (PCR) Not Detected RSV (PCR) Not Detected Entero/Rhino (PCR) Not Detected - Impressions Impressions Abdomen/Pelvis CT 02/08/18 18:00 IMPRESSION: 1. Large masses are present in the left inguinal region measuring 5.2 x 5.1 cm and 5.6 x 4.7 cm. These most likely represent pathologically enlarged lymph nodes from either metastatic disease or primary lymphoid neoplasm. 2. Large ground-glass opacity posteriorly in the right upper lobe, most suspicious for atypical infection. Other small consolidative and ground-glass opacities in the right lung are also most suspicious for an infectious etiology. Radiographic follow-up until resolution is recommended. 3. Hepatic steatosis. 4. Small cystic lucencies throughout the lungs bilaterally which could represent an atypical appearance of emphysema. Uncommon conditions including lymphangioleiomyomatosis and lymphocytic interstitial pneumonia can have a similar appearance. 5. Left-sided thyroid nodules measure up to 19 mm. Further evaluation with thyroid ultrasound on a nonemergent basis is recommended. D/ / 02/08/2018 19:09:08 Aramis Lopez MD / [facility] Interpreting Provider: Aramis Lopez MD Chest CT 02/08/18 18:00 IMPRESSION: 1. Large masses are present in the left inguinal region measuring 5.2 x 5.1 cm and 5.6 x 4.7 cm. These most likely represent pathologically enlarged lymph nodes from either metastatic disease or primary lymphoid neoplasm. 2. Large ground-glass opacity posteriorly in the right upper lobe, most suspicious for atypical infection. Other small consolidative and ground-glass opacities in the right lung are also most suspicious for an infectious etiology. Radiographic follow-up until resolution is recommended. 3. Hepatic steatosis. 4. Small cystic lucencies throughout the lungs bilaterally which could represent an atypical appearance of emphysema. Uncommon conditions including lymphangioleiomyomatosis and lymphocytic interstitial pneumonia can have a similar appearance. 5. Left-sided thyroid nodules measure up to 19 mm. Further evaluation with thyroid ultrasound on a nonemergent basis is recommended. D/ / 02/08/2018 19:09:08 Aramis Lopez MD / [facility] Interpreting Provider: Aramis Lopez MD - ABG Interpretation ABG results: PT/INR, D-dimer PT 16.5 Seconds (9.4-12.1) H 02/07/18 04:10 Inpatient Charges Provider: Dr. Storm Nina Follow Up: [id number] - Attending Attestation I examined this patient and my medical decision-making was reviewed with the resident. I agree with the documented findings, disposition and treatment plan as described except to the extent set forth below. Diarrhea had improved overnight. She is semi-formed stool this morning. However, she has had loose stools intermittently through the course the day. She completed dialysis with good tolerance. Her right neck pain from line insertion has improved CT imaging has been recommended by infectious disease and is currently pending. She is tiring steroids although her sugars have increased. Urine output is increasing. Continue with steroids. Currently awaiting transfer to [facility] pending bed availability
[2018-02-08] MEDS: Levofloxacin 500 MG/100 ML 500 MG/100 ML BAG IVPB SCH (11:56)
[2018-02-08] MEDS: Insulin LISPRO 300 UNITS/3 ML VIAL SQ SCH ×2 (11:57→16:35)
[2018-02-08] MEDS: Ondansetron 4 MG/2 ML VIAL IVP PRN ×2 (12:10→20:04)
[2018-02-08 15:00] LABS: VBG Ionized Calcium 1.04 mmol/L (1.15-1.35)
--- NOTE | 2018-02-08 15:01 | Infectious Disease Consult ---
Date of Encounter: 02/08/18 Time of Encounter: 12:15 Assessment and Plan (1) Sepsis Status: Acute Assessment and plan: Severe sepsis. The patient had two SIRS criteria on admission with lactic acidosis. She developed leukopenia and hypotension after admission. Likely secondary to PNA, but need to rule out additional sources as well. Blood cultures drawn 02/02/18 x 1 set is NGTD. Additional blood cultures drawn 02/07/18 are pending x 2 sets. Qualifiers: Sepsis type: sepsis due to unspecified organism Qualified Code(s): A41.9 - Sepsis, unspecified organism (2) Pneumonia Status: Acute Assessment and plan: Location: RLL. Causative organism: Unclear. CXR showed findings consistent with RLL pneumonia. Repeat CXR 02/05/18 showed findings consistent with RUL and RLL pneumonia. Repeat CXR 02/07/18 showed findings consistent with RUL and RLL pneumonia vs. atelectasis. Check S. pneumo and Legionella UAT. Get sputum culture if the patient is able to provide an adequate specimen. Get RIP. Get CT of the chest. Continue Levaquin 500mg IV Q48H. Dose-adjusted for HD. Start Vancomycin IV. Pharmacy to dose. Goal trough ~15. Start Zosyn 3.375 grams IV Q8H. Duration of treatment depends on the clinical picture. Monitor renal function and for drug toxicity and dose-adjust antibiotics. Qualifiers: Pneumonia type: due to unspecified organism Laterality: right Lung location: lower lobe of lung Qualified Code(s): J18.1 - Lobar pneumonia, unspecified organism (3) Diarrhea Status: Acute Assessment and plan: Etiology unclear: infectious vs. immunotherapy-induced vs. other. GI panel negative. Abdominal exam benign. Will get CT of the abdomen and pelvis to evaluate given the patient's immunocompromised state. Qualifiers: Diarrhea type: unspecified type Qualified Code(s): R19.7 - Diarrhea, unspecified (4) DINAH (acute kidney injury) Status: Acute Assessment and plan: Likely multifactorial. Nephrology consulted and following. HD started 02/07/18. Management per the nephrology team. Dose-adjust antibiotics. Avoid nephrotoxins as able. (5) Hypokalemia Status: Resolved (6) Pancytopenia Status: Acute Assessment and plan: Likely secondary to recent immunotherapy and/or sepsis. Improved. WBC normal. Hgb and platelets remain low. Continue to trend. (7) Immunosuppression Status: Acute (8) Malignant melanoma Status: Chronic Assessment and plan: Diagnosed April 2017. Status post radical bilateral vulvectomy and lymph node biopsy 04/2017. Immunotherapy nivolumab initiated 06/2017 with plans to continue x [address] abdomen and pelvis 11/2017 showed progression of disease with likely mets to the left inguinal nodes. Immunotherapy switched to Yervoy/Nivolumab combo 12/21/17. Last dose 02/04/18. Status post lymph node biopsy 12/21/17. I am unable to find the results to this biopsy in the [facility] records. 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 The patient was admitted to the hospital 02/02/18 for PNA. We are consulted 02/08/18 for further recommendations for PNA. Briefly, the patient is a 57 year old male with a past medical history as stated above. She was diagnosed with vulvar malignant melanoma status post radical bilateral vulvectomy in April 2017. At the time of her diagnosis, lymph nodie biopsy was negative for mets. She was started on Nivolumab every 2 weeks with plans to continue for a year. In June, she was hospitalized at [facility] for an infected seroma/abscess of the left groing. She had a drain placed and cultures were negative. She was treated with IV antibiotics during her hospital stay and discharged on PO Keflex. She had a repeat CT of the abdomen and pelvis 11/17/17 that showed increased size of the left inguinal lymph nodes concerning for mets. Her immunotherapy regimen was changed to Yervoy and nivolumab combination every 3 weeks. Her last dose was 02/04/18. The patient was admitted to the hospital 02/02/18 after she presented to the ER with complaints of fever, malaise and fatigue. Upon arrival to the ER, the patient was febrile and tachycardic. Her white blood cell count was normal. Kidney function was normal. Lactic acid was elevated at 3. LFTs were normal. Troponin was mildly elevated at 0.05. Urinalysis was negative. GI panel is negative. Chest x-ray showed a right lower lobe pneumonia. Blood cultures 1 set was obtained. The patient was started empirically on zinc, Zosyn, and Levaquin and admitted to the hospital for further evaluation. After admission, the patient became febrile with a MAXIMUM TEMPERATURE of 103. Her white blood cell count dropped. She became hypotensive and febrile and had a triple lumen central line placed. She responded well to IV fluids and did not require vasopressor initiation. She was noted to have acute kidney injury. Nephrology was consulted and she was started on intermittent hemodialysis. Repeat chest x-ray February 05 showed right upper lobe and right lower lobe pneumonia. Should her retroperitoneal ultrasound was negative for hydronephrosis, but did show findings consistent with possible metastasis of her cancer. On February 07, she underwent temporary hemodialysis catheter placement and dialysis was initiated. Repeat blood cultures were obtained February 07 2 sets. Urine culture was obtained and is pending. She had a repeat chest x-ray on February 07 that showed right upper lobe and right lower lobe infiltrate or atelectasis. Today, her white blood cell count is normal. She does continue to be tachycardic. Her acute kidney injury is improved. Since admission, her antibiotics have been the escalated to Levaquin only. We have been asked to evaluate and make further recommendations. During my exam today, the patient endorsed a history as stated above. She states that overall she feels better, but does not feel well. She reports fevers with chills and rigors at home. She reports a mild headache, but no neck pain or stiffness. She states she felt generally weak and ill, but denies any dizziness or focal weakness. She denies any chest pain or shortness of breath or cough. She denied any URI symptoms. She denied any nausea or vomiting. She does report some intermittent diarrhea since starting her immunotherapy. She denies abdominal pain or urinary complaints prior to admission, but states that couple of days ago she was having trouble starting her urine stream and was only able to dribble. The symptoms have resolved and she is urinating fine at this time. She denies any back or flank pain. She denies any pain in her previous surgical site and states it has healed well. She denies any oral thrush or new skin lesions. The patient lives at home alone. She does not currently work outside the home. She denies any tobacco, alcohol, or illicit drug use. She denies any chronic infectious diseases. She denies any recent travel outside the [facility]. CC: Prasad Bernal Past Med Surg Social Fam HX - Past Medical History Attestation: Yes The following information was validated with the patient. Source: patient, old records reviewed, nursing notes reviewed Medical history: cancer, diabetes, other Additional medical history: melonoma, low platlets Psychiatric history: no psych history - Past Surgical History Additional surgical history: lymph node biopsy - Social History Smoking Status: Never smoker Smokeless Tobacco Status: No Alcohol use: none Drug use: none Infectious Disease-CN:Meds Acetaminophen [Tylenol] 325 - 650 mg PO Q4HR PRN 02/02/18 [History] Albuterol Sulfate [Proair Hfa] 1 puff IH Q4H PRN 02/02/18 [History] Budesonide/Formoterol 160/4.5 [Symbicort 160/4.5] 2 puff IH BIDR 02/02/18 [ History] Calcium Carb, Citrate/Vit D3 [Calcium + D3 ER Tablet] 1 tab PO DAILY 02/02/18 [ History] Citalopram [CeleXA] 20 mg PO DAILY 02/02/18 [History] Ibuprofen [Ibu] 600 mg PO Q8H PRN 02/02/18 [History] Ipilimumab [Yervoy] 110 ml IV ONCE 02/02/18 [History] Metformin HCl [Metformin HCl] 1,000 mg PO BIDWM 02/02/18 [History] Omeprazole [PriLOSEC] 20 mg PO DAILY 02/02/18 [History] Triamcinolone Acet 0.1% CRM [Kenalog] 1 appl TP BID 02/02/18 [History] 3 Allergy/AdvReac Type Severity Reaction Status Date / Time No Known Allergies Allergy Verified 02/02/18 10:43 All systems: reviewed and no additional remarkable complaints except as stated Exam - Constitutional Vitals: Temp Pulse Resp BP Pulse Ox 98.3 F 111 12 134/73 98 02/08/18 11:30 02/08/18 13:00 02/08/18 13:00 02/08/18 13:00 02/08/18 13:00 General appearance: cooperative, no acute distress, obese - Head Head exam: Present: atraumatic, normal inspection, normocephalic - Eye Eye exam: Present: EOMI, normal appearance, PERRL Pupils: Present: normal accommodation - ENT ENT exam: Present: mucous membranes moist - Neck Neck exam: Present: normal inspection Additional comments: Temporary HD catheter noted to the right neck with transparent dressing C/D/I. - Respiratory Respiratory exam: Present: CTAB. Absent: rales, respiratory distress, rhonchi, wheezes - Cardiovascular Cardiovascular exam: Present: RRR, +S1, +S2 - GI/Abdominal GI/Abdominal exam: Present: distended (obese), normal bowel sounds, soft. Absent: tenderness - Extremities Exam Extremities exam: Present: normal inspection. Absent: joint swelling, pedal edema, tenderness - Back Exam Back exam: Absent: CVA tenderness (L), CVA tenderness (R) - Neurological Exam Neurological exam: Present: alert, oriented X3, no focal deficits - Psychiatric Psychiatric exam: Present: normal affect, normal mood - Skin Skin exam: Present: dry, intact, normal color, warm - Additional findings Additional findings: Vulvar surgical site well-healed without evidence of infection. Left groin lymphadenopathy palpable and tender without redness, warmth, or drainage. Infectious Disease CN: Results - Labs CBC & Chem 7: 02/09/18 03:45 02/09/18 03:45 Cultures: Cultures 02/07/18 17:01 Blood Culture - Preliminary Peripheral Venipuncture Culture is incubating and being continuously monitored for growth. Final report to follow. 02/07/18 16:55 Blood Culture - Preliminary Peripheral Venipuncture Culture is incubating and being continuously monitored for growth. Final report to follow. Serology: Serology 02/07/18 02/06/18 02/06/18 Range/Units 09:40 03:10 03:10 Urine Color Yellow (Yellow) Urine Clarity Clear (Clear) Urine pH 6.5 (5.0-8.0) pH Units Ur Specific Mobile < 1.005 L (1.010-1.025) Urine Protein Trace (Neg-Trace) mg/dL Urine Glucose (UA) Normal (Normal) mg/dL Urine Ketones Negative (Negative) mg/dL Urine Blood Trace H (Negative) Urine Nitrite Negative (Negative) Urine Bilirubin Negative (Negative) Urine Urobilinogen Normal (Normal) mg/dL Ur Leukocyte Esterase Small H (Negative) Urine Microscopic RBC 5-15 H (0-3) per hpf Urine Microscopic WBC 0-3 (0-3) per hpf Ur Eosinophil Smear 0 (None Seen) % Ur Squamous Epith Cells Moderate H (None-Few) per lpf Urine Bacteria None Seen (None-Few) per hpf Hyaline Casts Few (None-Few) per lpf Urine Creatinine mg/dL Protein/Creatinin Ratio (0.00-0.20) mg/mg Urine Sodium mEq/L Urine Total Protein (1-14) mg/dL Hep Bs Antigen Nonreactive (Nonreactive) Hep Bs Antibody 0.00 mIU/mL 02/06/18 Range/Units 03:10 Urine Color (Yellow) Urine Clarity (Clear) Urine pH (5.0-8.0) pH Units Ur Specific Mobile (1.010-1.025) Urine Protein (Neg-Trace) mg/dL Urine Glucose (UA) (Normal) mg/dL Urine Ketones (Negative) mg/dL Urine Blood (Negative) Urine Nitrite (Negative) Urine Bilirubin (Negative) Urine Urobilinogen (Normal) mg/dL Ur Leukocyte Esterase (Negative) Urine Microscopic RBC (0-3) per hpf Urine Microscopic WBC (0-3) per hpf Ur Eosinophil Smear (None Seen) % Ur Squamous Epith Cells (None-Few) per lpf Urine Bacteria (None-Few) per hpf Hyaline Casts (None-Few) per lpf Urine Creatinine 31 mg/dL Protein/Creatinin Ratio 0.74 H (0.00-0.20) mg/mg Urine Sodium 32.5 mEq/L Urine Total Protein 23 H (1-14) mg/dL Hep Bs Antigen (Nonreactive) Hep Bs Antibody mIU/mL - VTE Documentation of Mechanical Device: Intermittent pneumatic compression device Consult Discharge Plan - Plan Referrals: Leta Akins MD [Primary Care Provider] - - Attending Attestation I examined this patient and my medical decision-making was reviewed with the Resident Physician. I agree with the documented findings, disposition and treatment plan as described except to the extent set forth below. This is an addendum to original report dictated by Tiffany Whaley CNP. Please refer to Bhakti note for full details. Patient is a 57-year-old unfortunate woman that was diagnosed with melanoma in April 2017 currently on immunotherapy at [facility] presented initially with diarrhea was found to be septic and had a pneumonia. Patient also becoming hemodynamically unstable requiring central line and went into acute kidney injury with anuria requiring intermittent hemodialysis. Assessment and plan: Sepsis Pneumonia Acute kidney injury Diarrhea Electrolyte imbalance We will get CT of the chest abdomen and pelvis with oral contrast. Broaden the antibiotic spectrum to get vancomycin and Zosyn.: Vancomycin trough of 15 Check respiratory infectious panel checked strep pneumo and legionella antigen Dose adjust antibiotics based on intermittent hemodialysis Prognosis guarded
[2018-02-08] MEDS ORDERED: Calcium Gluconate 2,000 MG in 0.9 % Sodium Chloride 100 ML IVPB ONE (15:26)
[2018-02-08] MEDS ORDERED: Vancomycin 1 EACH in 0.9 % Sodium Chloride 250 ML IVPB SCH (16:00)
[2018-02-08] MEDS: Piperacillin/Tazobactam 3.375 GM in 0.9 % Sodium Chloride Mini Bag 100 ML IVPB SCH (16:30)
--- NOTE | 2018-02-08 18:24 | Internal Med Progress Note ---
Hospitalist Progress Note - Encounter Date of Encounter: 02/08/18 Time of Encounter: 13:00 - Subjective Interval History: Patient has been afebrile for 24 hours in neutropenia has resolved Patient currently receiving day 2 or 3 of an additional hemodialysis and also had ultrafiltration added Patient is still on the list to be transferred to [facility] when beds available - Exam Vitals: Temp Pulse Resp BP Pulse Ox 98.1 F 105 20 110/84 98 02/08/18 15:45 02/08/18 17:00 02/08/18 17:00 02/08/18 17:00 02/08/18 17:00 Exam: Gen.: Nonacute distress, alert and oriented 3 ENT: Mucosal membranes moist Respiratory: Lungs are clear to auscultation bilaterally without any wheezing rhonchi or rales Cardiovascular: Normal S1 and S2 regular rate rhythm no murmurs rubs or gallops Abdomen: Soft, nontender and nondistended with positive bowel sounds Extremities: No lower extremity edema Skin: Pale - Assessment and Plan (1) Pneumonia Current Visit: Yes Status: Acute Assessment and Plan: Repeat chest x-ray shows possible worsening infiltrate and patient with continued intermittent fevers with neutropenia. Urine streptococcal and legionella antigen negative. Smith cultures pending Infectious disease consulted with recommendations to add vancomycin and IV Zosyn while continuing IV Levaquin (2) Sepsis Current Visit: Yes Status: Acute Assessment and Plan: Patient patient has been afebrile in the last 24 hours and leukopenia has resolved Possible source of infection is pneumonia. Management as above (3) Acute renal failure (ARF) Current Visit: Yes Status: Acute Assessment and Plan: Patient currently receiving day 2 of 3 of initiated hemodialysis Nephrology following and appreciate recommendations (4) Hypokalemia Current Visit: Yes Status: Resolved Assessment and Plan: Resolved; continue to monitor with acute renal failure above (5) Malignant melanoma Current Visit: Yes Status: Chronic Assessment and Plan: Of labia/vulva; status post surgery. Currently on immunotherapy with Nevolumab and Ipilimumab; follows with [facility] as outpatient Hematology/oncology consulted with recommendations to continue Solu-Medrol Patient requesting to be transferred to [facility] for further management (6) Diabetes mellitus Current Visit: Yes Status: Chronic Assessment and Plan: Blood sugars noted to be well controlled. Hold oral hypoglycemics while in the hospital. Continue Accu-Chek blood glucose monitoring with sliding scale insulin if needed. Diabetic diet. DVT Prophylaxis: Subcutaneous Lovenox - Time Spent with Patient Total time spent is greater than 50% in coordination of care (as documented) at patient's floor/unit and/or counseling patient: Internal Medicine: Result - Labs CBC & Chem 7: 02/08/18 03:38 02/08/18 03:38 Labs: Short CBC 02/08/18 Range/Units 03:38 WBC 5.3 D (4.3-11.1) K/mcL Hgb 10.5 L (11.5-15.4) g/dL Hct 31.2 L (35.3-44.9) % Plt Count 73 L (140-400) K/mcL Neutrophils # 4.1 (1.6-8.9) K/mcL BMP 02/08/18 03:38 Sodium 139 Potassium 3.7 Chloride 106 Carbon Dioxide 23 BUN 9 Creatinine 3.80 H Glucose 239 H Calcium 7.7 L - ABG Interpretation ABG results: PT/INR, D-dimer PT 16.5 Seconds (9.4-12.1) H 02/07/18 04:10 - VTE Documentation of Mechanical Device: Intermittent pneumatic compression device Consult Discharge Plan - Plan Referrals: Leta Akins MD [Primary Care Provider] - (1) Pneumonia Qualifiers: Pneumonia type: due to unspecified organism Laterality: right Lung location : lower lobe of lung Qualified Code(s): J18.1 - Lobar pneumonia, unspecified organism (2) Sepsis Qualifiers: Sepsis type: sepsis due to unspecified organism Qualified Code(s): A41.9 - Sepsis, unspecified organism (5) Malignant melanoma Qualifiers: Melanoma location: unspecified site Qualified Code(s): C43.9 - Malignant melanoma of skin, unspecified (6) Diabetes mellitus Qualifiers: Diabetes mellitus type: type 2 Diabetes mellitus residential insulin use: without residential use Diabetes mellitus complication status: without complication Qualified Code(s): E11.9 - Type 2 diabetes mellitus without complications
[2018-02-08 18:43] LABS: Adenovirus Not Detected (Not Detect); Bordetella Pertussis Not Detected (Not Detect); Chlamydophila pneumoniae Not Detected (Not Detect); Coronavirus 229E Not Detected (Not Detect); Coronavirus HKU1 Not Detected (Not Detect); Coronavirus NL63 Not Detected (Not Detect); Coronavirus OC43 Not Detected (Not Detect); Human Metapneumovirus Not Detected (Not Detect); Human Rhinovirus/Enterovirus Not Detected (Not Detect); Influenza A Subtype 2009 H1 Not Detected (Not Detect); Influenza A Untypeable Not Detected (Not Detect); Influenza B Not Detected (Not Detect); Mycoplasma pneumoniae Not Detected (Not Detect); Parainfluenza Virus 1 Not Detected (Not Detect); Parainfluenza Virus 2 Not Detected (Not Detect); Parainfluenza Virus 3 Not Detected (Not Detect); Parainfluenza Virus 4 Not Detected (Not Detect); Respiratory Syncytial Virus Not Detected (Not Detect)
[2018-02-08] MEDS ORDERED: Insulin LISPRO 300 UNITS/3 ML VIAL SQ SCH (21:00)
[2018-02-09] MEDS: methylPREDNISolone 125 MG/2 ML VIAL IVP SCH ×2 (03:38→09:19)
[2018-02-09] MEDS: Piperacillin/Tazobactam 3.375 GM in 0.9 % Sodium Chloride Mini Bag 100 ML IVPB SCH ×2 (03:39→16:21)
[2018-02-09 04:07] LABS: Eosinophils % 0.2 %
[2018-02-09 04:09] LABS: Basophils % 0.2 %; Hematocrit 28.8 % (35.3-44.9); Hemoglobin 9.4 g/dL (11.5-15.4); Immature Granulocytes % 5.5 % (0-4); Immature Platelets 13.2 % (1.1-6.1); Lymphocytes # 0.7 K/mcL (0.6-4.6); Lymphocytes % 12.2 %; Mean Corpuscular HGB Conc 32.6 g/dL (31.6-35.5); Mean Corpuscular Volume 76.6 fL (83.0-100.0); Mean Platelet Volume 10.9 fL (9.4-12.4); Monocytes # 0.2 K/mcL (0.0-1.3); Monocytes % 3.9 %; Neutrophils # 4.7 K/mcL (1.6-8.9); Red Blood Count 3.76 M/mcL (3.82-4.97); Red Cell Distribution Width 20.2 % (11.5-14.5)
[2018-02-09 04:14] LABS: VBG Ionized Calcium 1.11 mmol/L (1.15-1.35)
[2018-02-09 04:16] LABS: Platelet Count 58 K/mcL (140-400)
[2018-02-09 04:28] LABS: Potassium 3.6 mEq/L (3.5-5.1)
[2018-02-09 04:53] LABS: Anisocytosis 2+ (Not Present); Platelet Estimate Decreased (Normal)
[2018-02-09 04:54] LABS: Hypochromasia Present (Not Present)
[2018-02-09] MEDS: Ondansetron 4 MG/2 ML VIAL IVP PRN (07:35)
[2018-02-09] MEDS: Insulin LISPRO 300 UNITS/3 ML VIAL SQ SCH ×2 (07:35→11:33)
[2018-02-09] MEDS: *HR* Enoxaparin 30 MG/0.3 ML SYRINGE SQ SCH (07:36)
--- NOTE | 2018-02-09 09:50 | Infectious Disease Progress No ---
Date of Encounter: 02/09/18 Time of Encounter: 08:30 - Assessment and Plan (1) Sepsis Current Visit: Yes Status: Acute Severe sepsis. The patient had two SIRS criteria on admission with lactic acidosis. She developed leukopenia and hypotension after admission. Likely secondary to PNA. Improved. WBC normalized. Continues to have some intermittent tachycardia. Afebrile x 24 hours. Blood cultures drawn 02/02/18 x 1 set is NGTD. Additional blood cultures drawn 02/07/18 are NGTD x 2 sets. Qualifiers: Sepsis type: sepsis due to unspecified organism Qualified Code(s): A41.9 - Sepsis, unspecified organism (2) Pneumonia Current Visit: Yes Status: Acute Location: RLL. Causative organism: Unclear. CXR showed findings consistent with RLL pneumonia. Repeat CXR 02/05/18 showed findings consistent with RUL and RLL pneumonia. Repeat CXR 02/07/18 showed findings consistent with RUL and RLL pneumonia vs. atelectasis. CT of the chest 02/08/18 showed ground glass opacities RUL concerning for atypical infection. Recommend pulmonology to evaluate. Check S. pneumo and Legionella UAT. --> negative. Get sputum culture if the patient is able to provide an adequate specimen. Get RIP.--> negative Continue Levaquin 500mg IV Q48H. Dose-adjusted for HD. (day 4) Continue Vancomycin IV. Pharmacy to dose. Goal trough ~15. (day 2) Continue Zosyn 3.375 grams IV Q8H. (day 2) Duration of treatment depends on the clinical picture. Monitor renal function and for drug toxicity and dose-adjust antibiotics. Qualifiers: Pneumonia type: due to unspecified organism Laterality: right Lung location: lower lobe of lung Qualified Code(s): J18.1 - Lobar pneumonia, unspecified organism (3) Diarrhea Current Visit: Yes Status: Acute Etiology unclear: infectious vs. immunotherapy-induced vs. other. GI panel negative. Abdominal exam benign. Patient reports improvement. CT abdomen and pelvis negative for acute intra-abdominal abnormality. Qualifiers: Diarrhea type: unspecified type Qualified Code(s): R19.7 - Diarrhea, unspecified (4) DINAH (acute kidney injury) Current Visit: Yes Status: Acute Likely multifactorial. Nephrology consulted and following. HD started 02/07/18. Management per the nephrology team. Dose-adjust antibiotics. Avoid nephrotoxins as able. (5) Hypokalemia Current Visit: Yes Status: Resolved (6) Pancytopenia Current Visit: Yes Status: Acute Likely secondary to recent immunotherapy and/or sepsis. Improved. WBC normal. Hgb and platelets remain low. Continue to trend. (7) Immunosuppression Current Visit: Yes Status: Acute (8) Malignant melanoma Current Visit: Yes Status: Chronic Diagnosed April 2017. Status post radical bilateral vulvectomy and lymph node biopsy 04/2017. Immunotherapy nivolumab initiated 06/2017 with plans to continue x [address] abdomen and pelvis 11/2017 showed progression of disease with likely mets to the left inguinal nodes. Immunotherapy switched to Yervoy/Nivolumab combo 12/21/17. Last dose 02/04/18. Status post lymph node biopsy 12/21/17. I am unable to find the results to this biopsy in the [facility] records. Qualifiers: Melanoma location: unspecified site Qualified Code(s): C43.9 - Malignant melanoma of skin, unspecified (9) Diabetes mellitus Current Visit: Yes Status: Chronic Qualifiers: Diabetes mellitus type: type 2 Diabetes mellitus fdc insulin use: without fdc use Diabetes mellitus complication status: without complication Qualified Code(s): E11.9 - Type 2 diabetes mellitus without complications - Subjective Interval history: Patient seen and examined. No acute events noted overnight. Patient states she feels better. Denies fevers, chills, or rigors. Denies chest pain or shortness of breath. Reports a mild non-productive cough. Denies nausea, vomiting, or diarrhea. Was able to eat some breakfast this morning. States the diarrhea is improving. Denies abdominal pain, urinary complaints. Denies oral thrush or new skin lesions. Infect Dis PN-Objective Data - Labs CBC & Chem 7: 02/09/18 03:45 02/09/18 03:45 Labs: Laboratory Results - last 24 hr 02/08/18 02/08/18 02/08/18 07:20 11:55 14:51 WBC RBC Hgb Hct MCV MCH MCHC RDW Plt Count MPV Immature Gran % Seg Neutrophils % Lymphocytes % Monocytes % Eosinophils % Basophils % Neutrophils # Lymphocytes # Monocytes # Eosinophils # Basophils # Platelet Estimate Immature Plt Fraction Hypochromasia Anisocytosis Sodium Potassium Chloride Carbon Dioxide BUN Creatinine Est GFR ( Amer) Est GFR (Non-Af Amer) BUN/Creatinine Ratio Glucose POC Glucose 225 H 158 H Calculated Osmolality Calcium Venous Ioniz Calcium 1.04 L Random Vancomycin Chlamy pneumoniae PCR Adenovirus (PCR) B. pertussis DNA (PCR) B.parapertussis DNA PCR Coronavirus OC43 (PCR) Coronavirus HKU1 (PCR) Coronavirus 229E (PCR) Coronavirus NL63 (PCR) Human Metapneumovir PCR Influenza A (H1) PCR Influ A (H1N1/09) PCR Influenza A (H3) PCR Influenza A Untype (PCR) Influenza Type B (PCR) M.pneumoniae DNA (PCR) Parainfluenza 1 (PCR) Parainfluenza 2 (PCR) Parainfluenza 3 (PCR) Parainfluenza 4 (PCR) RSV (PCR) Entero/Rhino (PCR) 02/08/18 02/08/18 02/08/18 16:29 16:52 19:11 WBC RBC Hgb Hct MCV MCH MCHC RDW Plt Count MPV Immature Gran % Seg Neutrophils % Lymphocytes % Monocytes % Eosinophils % Basophils % Neutrophils # Lymphocytes # Monocytes # Eosinophils # Basophils # Platelet Estimate Immature Plt Fraction Hypochromasia Anisocytosis Sodium Potassium Chloride Carbon Dioxide BUN Creatinine Est GFR ( Amer) Est GFR (Non-Af Amer) BUN/Creatinine Ratio Glucose POC Glucose 321 H 278 H Calculated Osmolality Calcium Venous Ioniz Calcium Random Vancomycin Chlamy pneumoniae PCR Not Detected Adenovirus (PCR) Not Detected B. pertussis DNA (PCR) Not Detected B.parapertussis DNA PCR Not Detected Coronavirus OC43 (PCR) Not Detected Coronavirus HKU1 (PCR) Not Detected Coronavirus 229E (PCR) Not Detected Coronavirus NL63 (PCR) Not Detected Human Metapneumovir PCR Not Detected Influenza A (H1) PCR Not Detected Influ A (H1N1/09) PCR Not Detected Influenza A (H3) PCR Not Detected Influenza A Untype (PCR) Not Detected Influenza Type B (PCR) Not Detected M.pneumoniae DNA (PCR) Not Detected Parainfluenza 1 (PCR) Not Detected Parainfluenza 2 (PCR) Not Detected Parainfluenza 3 (PCR) Not Detected Parainfluenza 4 (PCR) Not Detected RSV (PCR) Not Detected Entero/Rhino (PCR) Not Detected 02/09/18 02/09/18 02/09/18 03:45 03:45 03:45 WBC 6.0 RBC 3.76 L Hgb 9.4 L Hct 28.8 L MCV 76.6 L MCH 25.0 L MCHC 32.6 RDW 20.2 H Plt Count 58 L MPV 10.9 Immature Gran % 5.5 H Seg Neutrophils % 78.0 Lymphocytes % 12.2 Monocytes % 3.9 Eosinophils % 0.2 Basophils % 0.2 Neutrophils # 4.7 Lymphocytes # 0.7 Monocytes # 0.2 Eosinophils # 0.0 Basophils # 0.0 Platelet Estimate Decreased L Immature Plt Fraction 13.2 H Hypochromasia Present A Anisocytosis 2+ A Sodium 137 Potassium 3.6 Chloride 102 Carbon Dioxide 29 BUN 16 Creatinine 2.98 H Est GFR ( Amer) 20 L Est GFR (Non-Af Amer) 16 L BUN/Creatinine Ratio 5 L Glucose 295 H POC Glucose Calculated Osmolality 296 Calcium 8.0 L Venous Ioniz Calcium Random Vancomycin 22 Chlamy pneumoniae PCR Adenovirus (PCR) B. pertussis DNA (PCR) B.parapertussis DNA PCR Coronavirus OC43 (PCR) Coronavirus HKU1 (PCR) Coronavirus 229E (PCR) Coronavirus NL63 (PCR) Human Metapneumovir PCR Influenza A (H1) PCR Influ A (H1N1/09) PCR Influenza A (H3) PCR Influenza A Untype (PCR) Influenza Type B (PCR) M.pneumoniae DNA (PCR) Parainfluenza 1 (PCR) Parainfluenza 2 (PCR) Parainfluenza 3 (PCR) Parainfluenza 4 (PCR) RSV (PCR) Entero/Rhino (PCR) 02/09/18 04:07 WBC RBC Hgb Hct MCV MCH MCHC RDW Plt Count MPV Immature Gran % Seg Neutrophils % Lymphocytes % Monocytes % Eosinophils % Basophils % Neutrophils # Lymphocytes # Monocytes # Eosinophils # Basophils # Platelet Estimate Immature Plt Fraction Hypochromasia Anisocytosis Sodium Potassium Chloride Carbon Dioxide BUN Creatinine Est GFR ( Amer) Est GFR (Non-Af Amer) BUN/Creatinine Ratio Glucose POC Glucose Calculated Osmolality Calcium Venous Ioniz Calcium 1.11 L Random Vancomycin Chlamy pneumoniae PCR Adenovirus (PCR) B. pertussis DNA (PCR) B.parapertussis DNA PCR Coronavirus OC43 (PCR) Coronavirus HKU1 (PCR) Coronavirus 229E (PCR) Coronavirus NL63 (PCR) Human Metapneumovir PCR Influenza A (H1) PCR Influ A (H1N1/09) PCR Influenza A (H3) PCR Influenza A Untype (PCR) Influenza Type B (PCR) M.pneumoniae DNA (PCR) Parainfluenza 1 (PCR) Parainfluenza 2 (PCR) Parainfluenza 3 (PCR) Parainfluenza 4 (PCR) RSV (PCR) Entero/Rhino (PCR) Cultures: Cultures 02/09/18 06:35 Legionella Antigen - Final Urine,Clean Catch Streptococcus pneumoniae Antigen (M - Final 02/07/18 19:00 Urine Culture - Preliminary Urine,Clean Catch No significant growth. 02/07/18 17:01 Blood Culture - Preliminary Peripheral Venipuncture Culture is incubating and being continuously monitored for growth. Final report to follow. 02/07/18 16:55 Blood Culture - Preliminary Peripheral Venipuncture Culture is incubating and being continuously monitored for growth. Final report to follow. Serology 02/08/18 02/07/18 02/06/18 Range/Units 16:52 09:40 03:10 Urine Color (Yellow) Urine Clarity (Clear) Urine pH (5.0-8.0) pH Units Ur Specific [place] (1.010-1.025) Urine Protein (Neg-Trace) mg/dL Urine Glucose (UA) (Normal) mg/dL Urine Ketones (Negative) mg/dL Urine Blood (Negative) Urine Nitrite (Negative) Urine Bilirubin (Negative) Urine Urobilinogen (Normal) mg/dL Ur Leukocyte Esterase (Negative) Urine Microscopic RBC (0-3) per hpf Urine Microscopic WBC (0-3) per hpf Ur Eosinophil Smear 0 (None Seen) % Ur Squamous Epith Cells (None-Few) per lpf Urine Bacteria (None-Few) per hpf Hyaline Casts (None-Few) per lpf Urine Creatinine mg/dL Protein/Creatinin Ratio (0.00-0.20) mg/mg Urine Sodium mEq/L Urine Total Protein (1-14) mg/dL Chlamy pneumoniae PCR Not Detected (Not Detect) Adenovirus (PCR) Not Detected (Not Detect) B. pertussis DNA (PCR) Not Detected (Not Detect) B.parapertussis DNA PCR Not Detected (Not Detect) Coronavirus OC43 (PCR) Not Detected (Not Detect) Coronavirus HKU1 (PCR) Not Detected (Not Detect) Coronavirus 229E (PCR) Not Detected (Not Detect) Coronavirus NL63 (PCR) Not Detected (Not Detect) Hep Bs Antigen Nonreactive (Nonreactive) Hep Bs Antibody 0.00 mIU/mL Human Metapneumovir PCR Not Detected (Not Detect) Influenza A (H1) PCR Not Detected (Not Detect) Influ A (H1N1/09) PCR Not Detected (Not Detect) Influenza A (H3) PCR Not Detected (Not Detect) Influenza A Untype (PCR) Not Detected (Not Detect) Influenza Type B (PCR) Not Detected (Not Detect) M.pneumoniae DNA (PCR) Not Detected (Not Detect) Parainfluenza 1 (PCR) Not Detected (Not Detect) Parainfluenza 2 (PCR) Not Detected (Not Detect) Parainfluenza 3 (PCR) Not Detected (Not Detect) Parainfluenza 4 (PCR) Not Detected (Not Detect) RSV (PCR) Not Detected (Not Detect) Entero/Rhino (PCR) Not Detected (Not Detect) 02/06/18 02/06/18 Range/Units 03:10 03:10 Urine Color Yellow (Yellow) Urine Clarity Clear (Clear) Urine pH 6.5 (5.0-8.0) pH Units Ur Specific [place] < 1.005 L (1.010-1.025) Urine Protein Trace (Neg-Trace) mg/dL Urine Glucose (UA) Normal (Normal) mg/dL Urine Ketones Negative (Negative) mg/dL Urine Blood Trace H (Negative) Urine Nitrite Negative (Negative) Urine Bilirubin Negative (Negative) Urine Urobilinogen Normal (Normal) mg/dL Ur Leukocyte Esterase Small H (Negative) Urine Microscopic RBC 5-15 H (0-3) per hpf Urine Microscopic WBC 0-3 (0-3) per hpf Ur Eosinophil Smear (None Seen) % Ur Squamous Epith Cells Moderate H (None-Few) per lpf Urine Bacteria None Seen (None-Few) per hpf Hyaline Casts Few (None-Few) per lpf Urine Creatinine 31 mg/dL Protein/Creatinin Ratio 0.74 H (0.00-0.20) mg/mg Urine Sodium 32.5 mEq/L Urine Total Protein 23 H (1-14) mg/dL Chlamy pneumoniae PCR (Not Detect) Adenovirus (PCR) (Not Detect) B. pertussis DNA (PCR) (Not Detect) B.parapertussis DNA PCR (Not Detect) Coronavirus OC43 (PCR) (Not Detect) Coronavirus HKU1 (PCR) (Not Detect) Coronavirus 229E (PCR) (Not Detect) Coronavirus NL63 (PCR) (Not Detect) Hep Bs Antigen (Nonreactive) Hep Bs Antibody mIU/mL Human Metapneumovir PCR (Not Detect) Influenza A (H1) PCR (Not Detect) Influ A (H1N1/09) PCR (Not Detect) Influenza A (H3) PCR (Not Detect) Influenza A Untype (PCR) (Not Detect) Influenza Type B (PCR) (Not Detect) M.pneumoniae DNA (PCR) (Not Detect) Parainfluenza 1 (PCR) (Not Detect) Parainfluenza 2 (PCR) (Not Detect) Parainfluenza 3 (PCR) (Not Detect) Parainfluenza 4 (PCR) (Not Detect) RSV (PCR) (Not Detect) Entero/Rhino (PCR) (Not Detect) - Impressions Impressions Abdomen/Pelvis CT 02/08/18 18:00 IMPRESSION: 1. Large masses are present in the left inguinal region measuring 5.2 x 5.1 cm and 5.6 x 4.7 cm. These most likely represent pathologically enlarged lymph nodes from either metastatic disease or primary lymphoid neoplasm. 2. Large ground-glass opacity posteriorly in the right upper lobe, most suspicious for atypical infection. Other small consolidative and ground-glass opacities in the right lung are also most suspicious for an infectious etiology. Radiographic follow-up until resolution is recommended. 3. Hepatic steatosis. 4. Small cystic lucencies throughout the lungs bilaterally which could represent an atypical appearance of emphysema. Uncommon conditions including lymphangioleiomyomatosis and lymphocytic interstitial pneumonia can have a similar appearance. 5. Left-sided thyroid nodules measure up to 19 mm. Further evaluation with thyroid ultrasound on a nonemergent basis is recommended. D/ / 02/08/2018 19:09:08 Aramis Lopez MD / [facility] Interpreting Provider: Aramis Lopez MD Chest CT 02/08/18 18:00 IMPRESSION: 1. Large masses are present in the left inguinal region measuring 5.2 x 5.1 cm and 5.6 x 4.7 cm. These most likely represent pathologically enlarged lymph nodes from either metastatic disease or primary lymphoid neoplasm. 2. Large ground-glass opacity posteriorly in the right upper lobe, most suspicious for atypical infection. Other small consolidative and ground-glass opacities in the right lung are also most suspicious for an infectious etiology. Radiographic follow-up until resolution is recommended. 3. Hepatic steatosis. 4. Small cystic lucencies throughout the lungs bilaterally which could represent an atypical appearance of emphysema. Uncommon conditions including lymphangioleiomyomatosis and lymphocytic interstitial pneumonia can have a similar appearance. 5. Left-sided thyroid nodules measure up to 19 mm. Further evaluation with thyroid ultrasound on a nonemergent basis is recommended. D/ / 02/08/2018 19:09:08 Aramis Lopez MD / [facility] Interpreting Provider: Aramis Lopez MD Exam - Constitutional Vitals: Temp Pulse Resp BP Pulse Ox 97.9 F 105 20 130/90 97 02/09/18 04:28 02/09/18 09:00 02/09/18 09:00 02/09/18 09:00 02/09/18 09:00 General appearance: cooperative, no acute distress, obese - Head Head exam: Present: atraumatic, normal inspection, normocephalic - Eye Eye exam: Present: EOMI, normal appearance, PERRL Pupils: Present: normal accommodation - ENT ENT exam: Present: mucous membranes moist - Neck Neck exam: Present: normal inspection Additional comments: Temporary HD catheter noted to the right neck with transparent dressing C/D/I. - Respiratory Respiratory exam: Present: CTAB. Absent: rales, respiratory distress, rhonchi, wheezes - Cardiovascular Cardiovascular exam: Present: RRR, +S1, +S2 - GI/Abdominal GI/Abdominal exam: Present: distended (obese), normal bowel sounds, soft. Absent: tenderness Additional comments: Left groin mass remains unchanged. - Extremities Exam Extremities exam: Present: normal inspection. Absent: joint swelling, pedal edema, tenderness - Neurological Exam Neurological exam: Present: alert, oriented X3, no focal deficits - Psychiatric Psychiatric exam: Present: normal affect, normal mood - Skin Skin exam: Present: dry, intact, normal color, warm - VTE Documentation of Mechanical Device: Intermittent pneumatic compression device Consult Discharge Plan - Plan Referrals: Leta Akins MD [Primary Care Provider] - - Attending Attestation I examined this patient and my medical decision-making was reviewed with Tiffany Whaley CNP. I agree with the documented findings, disposition and treatment plan as described except to the extent set forth below.
--- NOTE | 2018-02-09 10:28 | Oncology Inp Progress Note ---
<Ezequiel Peraza - Last Filed: 02/09/18 17:36> Date of Encounter: 02/09/18 Time of Encounter: 10:26 (1) Diarrhea Current Visit: Yes Status: Acute Assessment and plan: Etiology unclear. Patient reports continual improvement. Currently on Solu- Medrol 125 mg TID, will cut back to BID. Qualifiers: Diarrhea type: unspecified type Qualified Code(s): R19.7 - Diarrhea, unspecified (2) DINAH (acute kidney injury) Current Visit: Yes Status: Acute Assessment and plan: Etiology unclear. Nephrology following, patient received HD yesterday, and will receive again today. 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 (3) Malignant melanoma Current Visit: Yes Status: Chronic Assessment and plan: Status post surgery, on adjuvant therapy with yervoy/nivolumab. Follows at [facility]. Week 3 of Yervoy was approximately a week ago. Patient requests transfer to [facility] where she receives her oncologic care. Qualifiers: Melanoma location: unspecified site Qualified Code(s): C43.9 - Malignant melanoma of skin, unspecified (4) Pancytopenia Current Visit: Yes Status: Acute Assessment and plan: Blood counts stable, WBC improved, likely due to steroids. No evidence of active bleeding. Thrombocytopenia slightly worse, highly doubt this is a microangiopathic hemolytic anemia process given the patient's bilirubin is normal. We will check LDH (5) Sepsis Current Visit: Yes Status: Acute Assessment and plan: Likely secondary to pneumonia. Further management per primary. Qualifiers: Sepsis type: sepsis due to unspecified organism Qualified Code(s): A41.9 - Sepsis, unspecified organism (6) Pneumonia Current Visit: Yes Status: Acute Qualifiers: Pneumonia type: due to unspecified organism Laterality: right Lung location: lower lobe of lung Qualified Code(s): J18.1 - Lobar pneumonia, unspecified organism Oncology: Subj Interval history: Patient seen and examined at bedside. Patient states that she continues to gradually feel better. BMs are becoming more firm. Patient reports mild epigastic pain - Constitutional Vitals: Vital Signs Temp Pulse Resp BP Pulse Ox 02/09/18 10:00 98 19 123/66 97 02/09/18 09:00 105 20 130/90 97 02/09/18 08:00 97.9 F 98 17 84/66 97 02/09/18 07:00 99 16 123/85 100 02/09/18 06:00 98 15 106/50 100 02/09/18 05:00 81 12 122/70 94 02/09/18 04:28 97.9 F 02/09/18 04:00 95 18 123/73 96 02/09/18 03:45 101 24 130/72 100 02/09/18 02:00 82 12 132/88 96 02/09/18 01:00 82 13 108/66 94 02/09/18 00:46 97.9 F 02/09/18 00:20 87 02/09/18 00:00 87 15 120/67 95 02/08/18 23:00 93 12 110/68 96 02/08/18 22:00 95 13 115/61 94 02/08/18 21:00 101 17 118/56 94 02/08/18 20:20 98.4 F 02/08/18 20:00 109 20 102/90 97 02/08/18 19:00 105 22 129/81 97 02/08/18 18:00 105 14 148/71 98 02/08/18 17:00 105 20 110/84 98 02/08/18 16:00 110 13 130/88 96 02/08/18 15:45 98.1 F 02/08/18 15:00 111 20 126/78 98 02/08/18 14:00 113 16 137/68 95 02/08/18 13:00 111 12 134/73 98 02/08/18 12:00 108 18 131/66 99 02/08/18 11:30 98.3 F 16 127/65 02/08/18 11:15 117/74 02/08/18 11:00 104 24 127/65 98 02/08/18 10:45 118/62 02/08/18 10:30 128/77 Intake and Output 02/08/18 02/09/18 02/09/18 23:59 07:59 15:59 Intake Total 800 / 800 100 / 100 50 / 50 Output Total 250 / 250 Balance 800 / 800 -150 / -150 50 / 50 Intake: IV Fluids 100 / 100 100 / 100 Zosyn 3.375 GM In 0.9 % Sodium 100 / 100 100 / 100 Chloride (Mini-Bag +) 100 ML @ 25 mls/hr IVPB Q12H [facility] Rx#: [id number] Oral 700 / 700 50 / 50 Output: Urine 250 / 250 Other: Stool Size Small Stool Consistency loose Stool Color Brown Weight 79.3 kg Blood Glucose* 278 275 Patient Weight 02/09/18 23:59 Weight 79.3 kg General appearance: no acute distress - Respiratory Respiratory exam: Present: CTAB. Absent: rales, wheezes - Cardiovascular Cardiovascular exam: Present: RRR. Absent: irregular rhythm, systolic murmur, tachycardia - GI/Abdominal GI/Abdominal exam: Present: hypoactive bowel sounds, soft. Absent: distended, tenderness - Extremities Exam Extremities exam: Present: pedal edema (trace) - Neurological Exam Neurological exam: Present: alert, oriented X3 Oncology: Obj Data - Labs CBC & Chem 7: 02/09/18 03:45 02/09/18 03:45 Labs: Laboratory Results - last 24 hr 02/08/18 02/08/18 02/08/18 07:20 11:55 14:51 WBC RBC Hgb Hct MCV MCH MCHC RDW Plt Count MPV Immature Gran % Seg Neutrophils % Lymphocytes % Monocytes % Eosinophils % Basophils % Neutrophils # Lymphocytes # Monocytes # Eosinophils # Basophils # Platelet Estimate Immature Plt Fraction Hypochromasia Anisocytosis Sodium Potassium Chloride Carbon Dioxide BUN Creatinine Est GFR ( Amer) Est GFR (Non-Af Amer) BUN/Creatinine Ratio Glucose POC Glucose 225 H 158 H Calculated Osmolality Calcium Venous Ioniz Calcium 1.04 L Random Vancomycin Chlamy pneumoniae PCR Adenovirus (PCR) B. pertussis DNA (PCR) B.parapertussis DNA PCR Coronavirus OC43 (PCR) Coronavirus HKU1 (PCR) Coronavirus 229E (PCR) Coronavirus NL63 (PCR) Human Metapneumovir PCR Influenza A (H1) PCR Influ A (H1N1/09) PCR Influenza A (H3) PCR Influenza A Untype (PCR) Influenza Type B (PCR) M.pneumoniae DNA (PCR) Parainfluenza 1 (PCR) Parainfluenza 2 (PCR) Parainfluenza 3 (PCR) Parainfluenza 4 (PCR) RSV (PCR) Entero/Rhino (PCR) 02/08/18 02/08/1802/08/18 16:29 16:52 19:11 WBC RBC Hgb Hct MCV MCH MCHC RDW Plt Count MPV Immature Gran % Seg Neutrophils % Lymphocytes % Monocytes % Eosinophils % Basophils % Neutrophils # Lymphocytes # Monocytes # Eosinophils # Basophils # Platelet Estimate Immature Plt Fraction Hypochromasia Anisocytosis Sodium Potassium Chloride Carbon Dioxide BUN Creatinine Est GFR ( Amer) Est GFR (Non-Af Amer) BUN/Creatinine Ratio Glucose POC Glucose 321 H 278 H Calculated Osmolality Calcium Venous Ioniz Calcium Random Vancomycin Chlamy pneumoniae PCR Not Detected Adenovirus (PCR) Not Detected B. pertussis DNA (PCR) Not Detected B.parapertussis DNA PCR Not Detected Coronavirus OC43 (PCR) Not Detected Coronavirus HKU1 (PCR) Not Detected Coronavirus 229E (PCR) Not Detected Coronavirus NL63 (PCR) Not Detected Human Metapneumovir PCR Not Detected Influenza A (H1) PCR Not Detected Influ A (H1N1/09) PCR Not Detected Influenza A (H3) PCR Not Detected Influenza A Untype (PCR) Not Detected Influenza Type B (PCR) Not Detected M.pneumoniae DNA (PCR) Not Detected Parainfluenza 1 (PCR) Not Detected Parainfluenza 2 (PCR) Not Detected Parainfluenza 3 (PCR) Not Detected Parainfluenza 4 (PCR) Not Detected RSV (PCR) Not Detected Entero/Rhino (PCR) Not Detected 02/09/18 02/09/18 02/09/18 03:45 03:45 03:45 WBC 6.0 RBC 3.76 L Hgb 9.4 L Hct 28.8 L MCV 76.6 L MCH 25.0 L MCHC 32.6 RDW 20.2 H Plt Count 58 L MPV 10.9 Immature Gran % 5.5 H Seg Neutrophils % 78.0 Lymphocytes % 12.2 Monocytes % 3.9 Eosinophils % 0.2 Basophils % 0.2 Neutrophils # 4.7 Lymphocytes # 0.7 Monocytes # 0.2 Eosinophils # 0.0 Basophils # 0.0 Platelet Estimate Decreased L Immature Plt Fraction 13.2 H Hypochromasia Present A Anisocytosis 2+ A Sodium 137 Potassium 3.6 Chloride 102 Carbon Dioxide 29 BUN 16 Creatinine 2.98 H Est GFR ( Amer) 20 L Est GFR (Non-Af Amer) 16 L BUN/Creatinine Ratio 5 L Glucose 295 H POC Glucose Calculated Osmolality 296 Calcium 8.0 L Venous Ioniz Calcium Random Vancomycin 22 Chlamy pneumoniae PCR Adenovirus (PCR) B. pertussis DNA (PCR) B.parapertussis DNA PCR Coronavirus OC43 (PCR) Coronavirus HKU1 (PCR) Coronavirus 229E (PCR) Coronavirus NL63 (PCR) Human Metapneumovir PCR Influenza A (H1) PCR Influ A (H1N1/09) PCR Influenza A (H3) PCR Influenza A Untype (PCR) Influenza Type B (PCR) M.pneumoniae DNA (PCR) Parainfluenza 1 (PCR) Parainfluenza 2 (PCR) Parainfluenza 3 (PCR) Parainfluenza 4 (PCR) RSV (PCR) Entero/Rhino (PCR) 02/09/18 04:07 WBC RBC Hgb Hct MCV MCH MCHC RDW Plt Count MPV Immature Gran % Seg Neutrophils % Lymphocytes % Monocytes % Eosinophils % Basophils % Neutrophils # Lymphocytes # Monocytes # Eosinophils # Basophils # Platelet Estimate Immature Plt Fraction Hypochromasia Anisocytosis Sodium Potassium Chloride Carbon Dioxide BUN Creatinine Est GFR ( Amer) Est GFR (Non-Af Amer) BUN/Creatinine Ratio Glucose POC Glucose Calculated Osmolality Calcium Venous Ioniz Calcium 1.11 L Random Vancomycin Chlamy pneumoniae PCR Adenovirus (PCR) B. pertussis DNA (PCR) B.parapertussis DNA PCR Coronavirus OC43 (PCR) Coronavirus HKU1 (PCR) Coronavirus 229E (PCR) Coronavirus NL63 (PCR) Human Metapneumovir PCR Influenza A (H1) PCR Influ A (H1N1/09) PCR Influenza A (H3) PCR Influenza A Untype (PCR) Influenza Type B (PCR) M.pneumoniae DNA (PCR) Parainfluenza 1 (PCR) Parainfluenza 2 (PCR) Parainfluenza 3 (PCR) Parainfluenza 4 (PCR) RSV (PCR) Entero/Rhino (PCR) - Impressions Impressions Abdomen/Pelvis CT 02/08/18 18:00 IMPRESSION: 1. Large masses are present in the left inguinal region measuring 5.2 x 5.1 cm and 5.6 x 4.7 cm. These most likely represent pathologically enlarged lymph nodes from either metastatic disease or primary lymphoid neoplasm. 2. Large ground-glass opacity posteriorly in the right upper lobe, most suspicious for atypical infection. Other small consolidative and ground-glass opacities in the right lung are also most suspicious for an infectious etiology. Radiographic follow-up until resolution is recommended. 3. Hepatic steatosis. 4. Small cystic lucencies throughout the lungs bilaterally which could represent an atypical appearance of emphysema. Uncommon conditions including lymphangioleiomyomatosis and lymphocytic interstitial pneumonia can have a similar appearance. 5. Left-sided thyroid nodules measure up to 19 mm. Further evaluation with thyroid ultrasound on a nonemergent basis is recommended. D/ / 02/08/2018 19:09:08 Aramis Lopez MD / [facility] Interpreting Provider: Aramis Lopez MD Chest CT 02/08/18 18:00 IMPRESSION: 1. Large masses are present in the left inguinal region measuring 5.2 x 5.1 cm and 5.6 x 4.7 cm. These most likely represent pathologically enlarged lymph nodes from either metastatic disease or primary lymphoid neoplasm. 2. Large ground-glass opacity posteriorly in the right upper lobe, most suspicious for atypical infection. Other small consolidative and ground-glass opacities in the right lung are also most suspicious for an infectious etiology. Radiographic follow-up until resolution is recommended. 3. Hepatic steatosis. 4. Small cystic lucencies throughout the lungs bilaterally which could represent an atypical appearance of emphysema. Uncommon conditions including lymphangioleiomyomatosis and lymphocytic interstitial pneumonia can have a similar appearance. 5. Left-sided thyroid nodules measure up to 19 mm. Further evaluation with thyroid ultrasound on a nonemergent basis is recommended. D/ / 02/08/2018 19:09:08 Aramis Lopez MD / [facility] Interpreting Provider: Aramis Lopez MD - ABG Interpretation ABG results: PT/INR, D-dimer PT 16.5 Seconds (9.4-12.1) H 02/07/18 04:10 Consult Discharge Plan - Plan Referrals: Leta Akins MD [Primary Care Provider] - <Carl Nina - Last Filed: 02/09/18 21:55> Date of Encounter: 02/09/18 - Constitutional Vitals: Vital Signs Temp Pulse Resp BP Pulse Ox 02/09/18 21:00 96 12 129/73 98 02/09/18 20:00 98 14 125/71 98 02/09/18 19:00 98.2 F 02/09/18 18:00 108 16 126/63 98 02/09/18 17:00 95 14 141/83 98 02/09/18 16:00 93 12 139/68 98 02/09/18 15:00 94 19 129/71 98 02/09/18 14:00 98 22 116/67 96 02/09/18 13:00 100 20 118/72 96 02/09/18 12:00 101 20 133/72 96 02/09/18 11:37 98.0 F 02/09/18 11:00 99 15 114/72 96 02/09/18 10:00 98 19 123/66 97 02/09/18 09:00 105 20 130/90 97 02/09/18 08:00 97.9 F 98 17 84/66 97 02/09/18 07:00 99 16 123/85 100 02/09/18 06:00 98 15 106/50 100 02/09/18 05:00 81 12 122/70 94 02/09/18 04:28 97.9 F 02/09/18 04:00 95 18 123/73 96 02/09/18 03:45 101 24 130/72 100 02/09/18 02:00 82 12 132/88 96 02/09/18 01:00 82 13 108/66 94 02/09/18 00:46 97.9 F 02/09/18 00:20 87 02/09/18 00:00 87 15 120/67 95 02/08/18 23:00 93 12 110/68 96 02/08/18 22:00 95 13 115/61 94 Intake and Output 02/09/18 02/09/18 02/10/18 08:59 16:59 00:59 Intake Total 100 / 100 50 / 50 300 / 300 Output Total 250 / 250 100 / 100 150 / 150 Balance -150 / -150 -50 / -50 150 / 150 Intake: IV Fluids 100 / 100 100 / 100 Zosyn 3.375 GM In 0.9 % Sodium 100 / 100 100 / 100 Chloride (Mini-Bag +) 100 ML @ 25 mls/hr IVPB Q12H [facility] Rx#: [id number] Oral 50 / 50 200 / 200 Output: Urine 250 / 250 100 / 100 Urine/Stool Mix 150 / 150 Other: Stool Size Small Small Stool Consistency loose liquid Stool Color Brown Brown Brown Green # Bowel Movements 1 Blood Glucose* 275 313 312 Oncology: Obj Data - Labs CBC & Chem 7: 02/09/18 03:45 02/09/18 03:45 Labs: Laboratory Results - last 24 hr 02/08/18 02/08/18 02/08/18 07:20 11:55 16:29 WBC RBC Hgb Hct MCV MCH MCHC RDW Plt Count MPV Immature Gran % Seg Neutrophils % Lymphocytes % Monocytes % Eosinophils % Basophils % Neutrophils # Lymphocytes # Monocytes # Eosinophils # Basophils # Platelet Estimate Immature Plt Fraction Hypochromasia Anisocytosis Sodium Potassium Chloride Carbon Dioxide BUN Creatinine Est GFR ( Amer) Est GFR (Non-Af Amer) BUN/Creatinine Ratio Glucose POC Glucose 225 H 158 H 321 H Calculated Osmolality Calcium Venous Ioniz Calcium Lactate Dehydrogenase Random Vancomycin 02/08/18 02/09/18 02/09/18 19:11 03:45 03:45 WBC 6.0 RBC 3.76 L Hgb 9.4 L Hct 28.8 L MCV 76.6 L MCH 25.0 L MCHC 32.6 RDW 20.2 H Plt Count 58 L MPV 10.9 Immature Gran % 5.5 H Seg Neutrophils % 78.0 Lymphocytes % 12.2 Monocytes % 3.9 Eosinophils % 0.2 Basophils % 0.2 Neutrophils # 4.7 Lymphocytes # 0.7 Monocytes # 0.2 Eosinophils # 0.0 Basophils # 0.0 Platelet Estimate Decreased L Immature Plt Fraction 13.2 H Hypochromasia Present A Anisocytosis 2+ A Sodium Potassium Chloride Carbon Dioxide BUN Creatinine Est GFR ( Amer) Est GFR (Non-Af Amer) BUN/Creatinine Ratio Glucose POC Glucose 278 H Calculated Osmolality Calcium Venous Ioniz Calcium Lactate Dehydrogenase Random Vancomycin 22 02/09/18 02/09/18 02/09/18 03:45 04:07 17:17 WBC RBC Hgb Hct MCV MCH MCHC RDW Plt Count MPV Immature Gran % Seg Neutrophils % Lymphocytes % Monocytes % Eosinophils % Basophils % Neutrophils # Lymphocytes # Monocytes # Eosinophils # Basophils # Platelet Estimate Immature Plt Fraction Hypochromasia Anisocytosis Sodium 137 Potassium 3.6 Chloride 102 Carbon Dioxide 29 BUN 16 Creatinine 2.98 H Est GFR ( Amer) 20 L Est GFR (Non-Af Amer) 16 L BUN/Creatinine Ratio 5 L Glucose 295 H POC Glucose Calculated Osmolality 296 Calcium 8.0 L Venous Ioniz Calcium 1.11 L Lactate Dehydrogenase 304 H Random Vancomycin - Impressions Impressions Abdomen/Pelvis CT 02/08/18 18:00 IMPRESSION: 1. Large masses are present in the left inguinal region measuring 5.2 x 5.1 cm and 5.6 x 4.7 cm. These most likely represent pathologically enlarged lymph nodes from either metastatic disease or primary lymphoid neoplasm. 2. Large ground-glass opacity posteriorly in the right upper lobe, most suspicious for atypical infection. Other small consolidative and ground-glass opacities in the right lung are also most suspicious for an infectious etiology. Radiographic follow-up until resolution is recommended. 3. Hepatic steatosis. 4. Small cystic lucencies throughout the lungs bilaterally which could represent an atypical appearance of emphysema. Uncommon conditions including lymphangioleiomyomatosis and lymphocytic interstitial pneumonia can have a similar appearance. 5. Left-sided thyroid nodules measure up to 19 mm. Further evaluation with thyroid ultrasound on a nonemergent basis is recommended. D/ / 02/08/2018 19:09:08 Aramis Lopez MD / [facility] Interpreting Provider: Aramis Lopez MD Chest CT 02/08/18 18:00 IMPRESSION: 1. Large masses are present in the left inguinal region measuring 5.2 x 5.1 cm and 5.6 x 4.7 cm. These most likely represent pathologically enlarged lymph nodes from either metastatic disease or primary lymphoid neoplasm. 2. Large ground-glass opacity posteriorly in the right upper lobe, most suspicious for atypical infection. Other small consolidative and ground-glass opacities in the right lung are also most suspicious for an infectious etiology. Radiographic follow-up until resolution is recommended. 3. Hepatic steatosis. 4. Small cystic lucencies throughout the lungs bilaterally which could represent an atypical appearance of emphysema. Uncommon conditions including lymphangioleiomyomatosis and lymphocytic interstitial pneumonia can have a similar appearance. 5. Left-sided thyroid nodules measure up to 19 mm. Further evaluation with thyroid ultrasound on a nonemergent basis is recommended. D/ / 02/08/2018 19:09:08 Aramis Lopez MD / [facility] Interpreting Provider: Aramis Lopez MD - ABG Interpretation ABG results: PT/INR, D-dimer PT 16.5 Seconds (9.4-12.1) H 02/07/18 04:10 Inpatient Charges Provider: Dr. Storm Nina Follow Up: [id number] - Attending Attestation I examined this patient and my medical decision-making was reviewed with the resident. I agree with the documented findings, disposition and treatment plan as described except to the extent set forth below. She is doing a bit better. Urine output is stable. She had prostate 500 mL of urine out last 24 hours. Diarrhea has improved. She has had 2-3 semi-formed stools. She had one loose stool. Nephrology raising concern of a microangiopathic hemolytic process given worsening thrombocytopenia. Her bilirubin is normal. Her anemia has been stable since admission. She has no other signs consistent with this disorder. They have ordered an ADA MTS 13 level. I think this is unnecessary and will require one week to result my pretest probability of such a process is quite low, and I have ordered an LDH and peripheral smear. She is to continue on Solu-Medrol. I decreased her to 125 mg twice daily. Clinically, she is improving. I am hopeful her renal function will follow suit. Per nursing, she will likely transfer to [facility] tonight or tomorrow.
--- NOTE | 2018-02-09 11:29 | Nephrology Progress Note ---
Date of Encounter: 02/09/18 Time of Encounter: 08:30 - Assessment and Plan (1) DINAH (acute kidney injury) Current Visit: Yes Status: Acute Acute kidney injury on hemodialysis Received hemodialysis yesterday, improving Etiology is likely secondary to sepsis and prerenal causes with some ATN in setting of vancomycin and hypertension. Do not suspect immune complex glomerulonephritis at this time Patient has maintained some elements of sepsis throughout her stay however this seems to have improved to some extent. No longer febrile, maintained tachycardic, however blood pressure has improved and is not requiring pressors Urine output has continued to increase, she had 500 reported out yesterday The patient also states that she is no longer having as many loose stools and she is starting to have formed stools instead Patient has been started on Vancomycin for continuing infection Plan We will hold on hemodialysis today, may require tomorrow Broaden differential for DINAH. Although unlikely, consider thrombotic microangiopathic causes vs. autoimmune. We will check FAHEEM, ANCAs, C3/C4, Antiphospholipid antibodies, and [id number] Avoid all nephrotoxic agents. Consider alternatives to vancomycin if possible (2) Sepsis Current Visit: Yes Status: Acute Sepsis secondary to pneumonia however has largely resolved Patient appears to no longer be febrile, however does have some tachycardia and tachypnea on occasion Management per primary team, infectious disease has been counseled Recommend avoidance of vancomycin/alternative if possible Qualifiers: Sepsis type: sepsis due to unspecified organism Qualified Code(s): A41.9 - Sepsis, unspecified organism (3) Diarrhea Current Visit: Yes Status: Acute Improving significantly Continue to monitor, replace fluids as needed Qualifiers: Diarrhea type: unspecified type Qualified Code(s): R19.7 - Diarrhea, unspecified (4) Thrombocytopenia Current Visit: Yes Status: Acute Worsening thrombocytopenia Plt 58 today, down from 73 Consider renal causes, workup as above in DINAH Recommend peripheral smear Heme/Onc on board (5) Malignant melanoma Current Visit: Yes Status: Chronic Management per hematology oncology Qualifiers: Melanoma location: unspecified site Qualified Code(s): C43.9 - Malignant melanoma of skin, unspecified Subjective Principal diagnosis: DINAH Interval history: The patient is resting in bed at time of examination. She does report that she continues to feel better than she did previously. No acute complaints overnight. Objective - Vital Signs Vital signs: Vital Signs Temp Pulse Resp BP Pulse Ox 02/09/18 11:00 99 15 114/72 96 02/09/18 10:00 98 19 123/66 97 02/09/18 09:00 105 20 130/90 97 02/09/18 08:00 97.9 F 98 17 84/66 97 02/09/18 07:00 99 16 123/85 100 02/09/18 06:00 98 15 106/50 100 02/09/18 05:00 81 12 122/70 94 02/09/18 04:28 97.9 F 02/09/18 04:00 95 18 123/73 96 02/09/18 03:45 101 24 130/72 100 02/09/18 02:00 82 12 132/88 96 02/09/18 01:00 82 13 108/66 94 02/09/18 00:46 97.9 F 02/09/18 00:20 87 02/09/18 00:00 87 15 120/67 95 02/08/18 23:00 93 12 110/68 96 02/08/18 22:00 95 13 115/61 94 02/08/18 21:00 101 17 118/56 94 02/08/18 20:20 98.4 F 02/08/18 20:00 109 20 102/90 97 02/08/18 19:00 105 22 129/81 97 02/08/18 18:00 105 14 148/71 98 02/08/18 17:00 105 20 110/84 98 02/08/18 16:00 110 13 130/88 96 02/08/18 15:45 98.1 F 02/08/18 15:00 111 20 126/78 98 02/08/18 14:00 113 16 137/68 95 02/08/18 13:00 111 12 134/73 98 02/08/18 12:00 108 18 131/66 99 02/08/18 11:30 98.3 F 16 127/65 Intake and Output 02/08/18 02/09/18 02/09/18 23:59 07:59 15:59 Intake Total 800 / 800 100 / 100 50 / 50 Output Total 250 / 250 Balance 800 / 800 -150 / -150 50 / 50 Intake: IV Fluids 100 / 100 100 / 100 Zosyn 3.375 GM In 0.9 % Sodium 100 / 100 100 / 100 Chloride (Mini-Bag +) 100 ML @ 25 mls/hr IVPB Q12H [facility] Rx#: [id number] Oral 700 / 700 50 / 50 Output: Urine 250 / 250 Other: Stool Size Small Stool Consistency loose Stool Color Brown Weight 79.3 kg Blood Glucose* 278 313 Patient Weight 02/09/18 23:59 Weight 79.3 kg - General Appearance Exam: Gen: Vitals noted. No acute distress. HEENT: Normocephalic, atraumatic. Some dry skin is noted on the face Neck: Supple. No adenopathy. Cardiac: RRR, no murmur was appreciated today. +S1/S2 Pulmonary: Bilaterally diminished, no wheezes, rales or rhonchi, equal chest expansion Abdomen: soft, nontender, BS noted, no guarding Back: Nontender throughout. Extremities: 1+ edema in the feet bilaterally, nontender calf, no cyanosis or clubbing Neuro: A&Ox3, moves all extremities, no focal deficits Psych: Appropriate mood and behavior - Lab 02/09/18 03:45 02/09/18 03:45 Most recent lab results Calcium 8.0 mg/dL (8.6-10.3) L 02/09/18 03:45 Phosphorus 2.8 mg/dL (2.7-4.5) 02/08/18 03:38 Magnesium 2.1 mg/dL (1.6-2.6) 02/08/18 03:38 Urine Creatinine 31 mg/dL 02/06/18 03:10 Urine Sodium 32.5 mEq/L 02/06/18 03:10 Urine Total Protein 23 mg/dL (1-14) H 02/06/18 03:10 - VTE Documentation of Mechanical Device: Intermittent pneumatic compression device Consult Discharge Plan - Plan Referrals: Leta Akins MD [Primary Care Provider] -
[2018-02-09] MEDS ORDERED: Insulin LISPRO 300 UNITS/3 ML VIAL SQ SCH ×2 (16:30→21:00)
[2018-02-09] MEDS ORDERED: Magic Mouthwash 10 ML UD Cup PO SCH (17:45)
[2018-02-09] MEDS ORDERED: methylPREDNISolone 125 MG/2 ML VIAL IVP SCH (18:00)
--- NOTE | 2018-02-09 20:09 | Internal Med Progress Note ---
Hospitalist Progress Note - Encounter Date of Encounter: 02/09/18 Time of Encounter: 11:00 - Subjective Interval History: Patient has been afebrile for 24 hours in neutropenia has resolved Patient's renal function improving with hemodialysis Patient is still on the list to be transferred to [facility] when beds available per family request - Exam Vitals: Temp Pulse Resp BP Pulse Ox 98.2 F 108 16 126/63 98 02/09/18 19:00 02/09/18 18:00 02/09/18 18:00 02/09/18 18:00 02/09/18 18:00 Exam: Gen.: Nonacute distress, alert and oriented 3 ENT: Mucosal membranes moist Respiratory: Lungs are clear to auscultation bilaterally without any wheezing rhonchi or rales Cardiovascular: Normal S1 and S2 regular rate rhythm no murmurs rubs or gallops Abdomen: Soft, nontender and nondistended with positive bowel sounds Extremities: No lower extremity edema Skin: Pale - Assessment and Plan (1) Pneumonia Current Visit: Yes Status: Acute Assessment and Plan: Repeat chest x-ray shows possible worsening infiltrate and patient with continued intermittent fevers with neutropenia. Urine streptococcal and legionella antigen negative. Smith cultures pending Infectious disease consulted with recommendations to continue IV vancomycin, Zosyn and IV Levaquin (2) Sepsis Current Visit: Yes Status: Acute Assessment and Plan: Patient has been afebrile in the last 24 hours and leukopenia has resolved Possible source of infection is pneumonia. Management as above (3) Acute renal failure (ARF) Current Visit: Yes Status: Acute Assessment and Plan: Patient renal function improved after receiving 2 days of hemodialysis Nephrology following and appreciate recommendations (4) Hypokalemia Current Visit: Yes Status: Resolved Assessment and Plan: Resolved; continue to monitor with acute renal failure above (5) Malignant melanoma Current Visit: Yes Status: Chronic Assessment and Plan: Of labia/vulva; status post surgery. Currently on immunotherapy with Nevolumab and Ipilimumab; follows with [facility] as outpatient Hematology/oncology consulted with recommendations to continue Solu-Medrol Patient and family requesting to be transferred to [facility] for further management (6) Diabetes mellitus Current Visit: Yes Status: Chronic Assessment and Plan: Blood glucose elevated due to IV steroids Continue Accu-Chek blood glucose monitoring with increasing level of sliding scale insulin Diabetic diet. DVT Prophylaxis: Subcutaneous Lovenox - Time Spent with Patient Total time spent is greater than 50% in coordination of care (as documented) at patient's floor/unit and/or counseling patient: Internal Medicine: Result - Labs CBC & Chem 7: 02/09/18 03:45 02/09/18 03:45 Labs: Short CBC 02/09/18 Range/Units 03:45 WBC 6.0 (4.3-11.1) K/mcL Hgb 9.4 L (11.5-15.4) g/dL Hct 28.8 L (35.3-44.9) % Plt Count 58 L (140-400) K/mcL Neutrophils # 4.7 (1.6-8.9) K/mcL BMP 02/09/18 03:45 Sodium 137 Potassium 3.6 Chloride 102 Carbon Dioxide 29 BUN 16 Creatinine 2.98 H Glucose 295 H Calcium 8.0 L - ABG Interpretation ABG results: PT/INR, D-dimer PT 16.5 Seconds (9.4-12.1) H 02/07/18 04:10 - VTE Documentation of Mechanical Device: Intermittent pneumatic compression device Consult Discharge Plan - Plan Referrals: Leta Akins MD [Primary Care Provider] - (1) Pneumonia Qualifiers: Pneumonia type: due to unspecified organism Laterality: right Lung location : lower lobe of lung Qualified Code(s): J18.1 - Lobar pneumonia, unspecified organism (2) Sepsis Qualifiers: Sepsis type: sepsis due to unspecified organism Qualified Code(s): A41.9 - Sepsis, unspecified organism (5) Malignant melanoma Qualifiers: Melanoma location: unspecified site Qualified Code(s): C43.9 - Malignant melanoma of skin, unspecified (6) Diabetes mellitus Qualifiers: Diabetes mellitus type: type 2 Diabetes mellitus intermediate school teacher insulin use: without intermediate school teacher use Diabetes mellitus complication status: without complication Qualified Code(s): E11.9 - Type 2 diabetes mellitus without complications
[2018-02-09 23:17] VITALS: BP 133/79
[2018-02-09] MEDS ORDERED: Aminoglycoside Consult 1 EACH MC ONE (23:35)
--- NOTE | 2018-02-10 14:18 | Discharge Summary ---
Orders not resulted at time of discharge: Pending orders 02/07/18 17:01 Culture,Blood [BC] Stat 02/09/18 12:43 [id number] Activity Routine FAHEEM IgG ABILIO rflx IFA Routine Antiphospholipid Ab High Spec Routine Complement Component 3 Routine Complement Component 4 Routine MPO/PR3 (ANCA) Antibodies Routine Date of Encounter: 02/10/18 Time of Encounter: 11:00 - Discharge Diagnosis (1) Pneumonia Priority: Primary Status: Acute Qualifiers: Pneumonia type: due to unspecified organism Laterality: right Lung location: lower lobe of lung Qualified Code(s): J18.1 - Lobar pneumonia, unspecified organism (2) Sepsis Priority: Primary Status: Acute Qualifiers: Sepsis type: sepsis due to unspecified organism Qualified Code(s): A41.9 - Sepsis, unspecified organism (3) Acute renal failure (ARF) Priority: Primary Status: Acute Qualifiers: Acute renal failure type: unspecified Qualified Code(s): N17.9 - Acute kidney failure, unspecified (4) Hypokalemia Priority: Secondary Status: Resolved (5) Malignant melanoma Priority: Primary Status: Chronic Qualifiers: Melanoma location: unspecified site Qualified Code(s): C43.9 - Malignant melanoma of skin, unspecified (6) Diabetes mellitus Priority: Secondary Status: Chronic Qualifiers: Diabetes mellitus type: type 2 Diabetes mellitus equipment operator intermodal yard insulin use: without alf use Diabetes mellitus complication status: without complication Qualified Code(s): E11.9 - Type 2 diabetes mellitus without complications Hospital course: Patient is a 57-year-old female with past medical history significant for malignant melanoma who presents the ER due to fever and chills. She also reports of feeling malaise. During patients hospital stay, she was treated for acute renal failure and nephrology was consulted with recommendations for hemodialysis. Patient was also treated for healthcare acquired pneumonia and infectious diseases consulted with recommendations for broad spectrum coverage. Hematology oncology was also consulted with recommendations to start IV Solu- Medrol to see if this would help to resolve fevers. Family during hospital stay requested transfer to the [facility] due to the fact that her treatment team for hematology oncology was known to patient at [facility]. [facility] was contacted and accepted the patient for transfer. Patient was transferred by ambulance at 11:30 PM on 02/09/18. - Time Spent with Patient Total time spent providing and/or coordinating discharge services: Less than 30 minutes - Discharge Medications Home Medications: Acetaminophen [Tylenol] 325 - 650 mg PO Q4HR PRN 02/02/18 [History] Albuterol Sulfate [Proair Hfa] 1 puff IH Q4H PRN 02/02/18 [History] Budesonide/Formoterol 160/4.5 [Symbicort 160/4.5] 2 puff IH BIDR 02/02/18 [ History] Calcium Carb, Citrate/Vit D3 [Calcium + D3 ER Tablet] 1 tab PO DAILY 02/02/18 [ History] Citalopram [CeleXA] 20 mg PO DAILY 02/02/18 [History] Ibuprofen [Ibu] 600 mg PO Q8H PRN 02/02/18 [History] Ipilimumab [Yervoy] 110 ml IV ONCE 02/02/18 [History] Metformin HCl [Metformin HCl] 1,000 mg PO BIDWM 02/02/18 [History] Omeprazole [PriLOSEC] 20 mg PO DAILY 02/02/18 [History] Triamcinolone Acet 0.1% CRM [Kenalog] 1 appl TP BID 02/02/18 [History] Allergies/Adverse Reactions: 3 Allergy/AdvReac Type Severity Reaction Status Date / Time No Known Allergies Allergy Verified 02/02/18 10:43 Date of admission: 02/03/18 17:13 Primary care physician: Leta Akins MD Consults: 02/05/18 08:09 Consult to Nephrology [CONS] Routine Consulting Provider: Kidney Radnor/NORBERTO/SUNIL/SHARA Reason for Consult: DINAH with malignant melanoma on immunotherapy, with diarrhea; has been hypotensive at admission, on Vancomycin; Call Completed: Yes 02/07/18 07:27 Consult to Interventional Radiology [CONS] Routine Consulting Provider: Radiology Interventional Cols Reason for Consult: Please evaluate for placement of a temporary HD catheter for acute dialysis. Thank you. Call Completed: Yes 02/07/18 08:00 Consult to Dialysis [CONS] ONCE 02/07/18 17:57 Consult to Infectious Diseases [CONS] Routine Consulting Provider: Infectious Disease Radnor Reason for Consult: Sepsis with neutropenia and tachycardia; pneumonia Call Completed: No 02/08/18 07:30 Consult to Dialysis [CONS] ONCE - Constitutional Vitals: Temp Pulse Resp BP Pulse Ox 98.2 F 100 14 133/79 99 08/31/18 19:00 02/09/18 23:00 02/09/18 23:00 02/09/18 23:00 02/09/18 23:00 General appearance: Present: cooperative, A&O X 3, answers questions appropriately Exam: Gen.: Nonacute distress, alert and oriented 3 ENT: Mucosal membranes moist Respiratory: Lungs are clear to auscultation bilaterally without any wheezing rhonchi or rales Cardiovascular: Normal S1 and S2 regular rate rhythm no murmurs rubs or gallops Abdomen: Soft, nontender and nondistended with positive bowel sounds Extremities: No lower extremity edema Skin: Normal color - Patient Status Disposition: Transfer Short-Term Hosp Condition: Fair - Discharge Instructions Follow Up With: Leta Akins MD [Primary Care Provider] - - VTE Documentation of Mechanical Device: Intermittent pneumatic compression device
[2018-02-13 13:41] LABS: ANA IgG by ELISA NONE DETECTED (None Detected); Complement Component 3 124 mg/dL (88-201); Complement Component 4 35 mg/dL (10-40)
[2018-02-13 14:26] LABS: Myeloperoxidase Ab 0 AU/mL (0-19); Serine Protease-3 Antibody 0 AU/mL (0-19)
[2018-02-20 07:32] LABS: Antiphospholipid IgG High Spec 7 GPL (0-14); Antiphospholipid IgM High Spec 11 MPL (0-14)
== END 2018-02-09 23:36 | disposition short-term general hospital (02) | DRG 871 ==
LOC: 2ANU 08:45 → EMEROOARM 08:45 → SUATTDRO 11:04 → 2ANU 11:39 → ICNU 02-03 04:32 → 2ANU 02-03 11:03 → SUATTDRO 02-03 17:13 → ICNU 02-06 17:42
PROVIDERS: ADMIT Internal Medicine; ATTEND Hospitalist

== ENCOUNTER 2018-02-28 11:13 | Inpatient (IN) ==
[~2018-02-28 11:13] MED LIST: *HR* Norepinephrine 4 MG/4 ML VIAL IVC ONE
[2018-02-28] MEDS ORDERED: 0.9 % Sodium Chloride 1,000 ML IVC ONE (11:22)
--- NOTE | 2018-02-28 11:45 | Emergency Department Note ---
Disposition Clinical Impression: Neutropenic fever Pneumonia Qualifiers: Pneumonia type: due to unspecified organism Laterality: unspecified laterality Lung location: unspecified part of lung Qualified Code(s): J18.9 - Pneumonia, unspecified organism Disposition: Admitted As Inpatient Condition: Fair Referrals: Leta Akins MD [Primary Care Provider] - Forms: ED Satisfaction Letter General Adult HPI - General Chief complaint: ED Fever Stated complaint: Fever Time Seen by Provider: 02/28/18 11:22 Source: patient, EMS Mode of arrival: EMS Limitations: no limitations Nursing Notes Reviewed: Yes Vital Signs Reviewed: Yes - History of Present Illness HPI Narrative: 57-year-old female with significant past medical 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 Patient states approximately 3 weeks ago she received immunotherapy for her melanoma at [facility]. She was kept for a prolonged period of time due to fevers there. She states they never found a source of the fever. She states she was discharged approximately 3 days ago. At that time she was afebrile. Patient was sent to a long term facility. Last evening she spiked a fever. The provided her with Tylenol. This morning she was still febrile and therefore was sent to the emergency department further evaluation. Patient states she has had some nausea and loose stools that are nonbloody. Denies any vomiting, abdominal pain, chest pain or shortness of breath. Pain Scale: 0 - Related Data Home Medications Medication Instructions Recorded Confirmed Acetaminophen [Tylenol] 325 - 650 mg PO Q4HR PRN 02/02/18 02/02/18 Albuterol Sulfate [Proair Hfa] 1 puff IH Q4H PRN 02/02/18 02/02/18 Budesonide/Formoterol 160/4.5 2 puff IH BIDR 02/02/18 02/02/18 [Symbicort 160/4.5] Calcium Carb, Citrate/Vit D3 1 tab PO DAILY 02/02/18 02/02/18 [Calcium + D3 ER Tablet] Citalopram [CeleXA] 20 mg PO DAILY 02/02/18 02/02/18 Ibuprofen [Ibu] 600 mg PO Q8H PRN 02/02/18 02/02/18 Ipilimumab [Yervoy] 110 ml IV ONCE 02/02/18 02/02/18 Metformin HCl [Metformin HCl] 1,000 mg PO BIDWM 02/02/18 02/02/18 Omeprazole [PriLOSEC] 20 mg PO DAILY 02/02/18 02/02/18 Triamcinolone Acet 0.1% CRM 1 appl TP BID 02/02/18 02/02/18 [Kenalog] Allergies Allergy/AdvReac Type Severity Reaction Status Date / Time No Known Allergies Allergy Verified 02/02/18 10:43 All systems ED: reviewed and negative except as stated. Constitutional: Reports: fever Eyes: Reports: as per HPI ENT ED: Reports: as per HPI Cardiovascular: Denies: chest pain, palpitations Respiratory: Denies: cough, dyspnea, wheezes Gastrointestinal: Reports: nausea, diarrhea. Denies: abdominal pain, vomiting Genitourinary: Reports: as per HPI Musculoskeletal: Reports: as per HPI Integumentary: Reports: as per HPI Neurological: Denies: numbness, paresthesias Psychiatric: Reports: as per HPI Endocrine: Reports: as per HPI Hematological/Lymphatic: Reports: as per HPI Allergic/Immunologic: Reports: as per HPI Past Medical History - Past Medical History Attestation: Yes The following information was validated with the patient. Medical history: Reports: cancer, diabetes, other Psychiatric history: Reports: no psych history - Social History Smoking Status: Never smoker Smokeless Tobacco Status: No Alcohol use: Reports: none Drug use: Reports: none Physical Exam - General Limitations: no limitations General appearance: alert, in no apparent distress - Head Head exam: atraumatic, normocephalic, normal inspection - Eye Eye exam: Present: normal appearance. Absent: scleral icterus, conjunctival injection - ENT ENT exam: mucous membranes dry - Neck Neck exam: Present: normal inspection, full ROM. Absent: tenderness, meningismus - Chest Chest inspection: Present: normal inspection, symmetric chest wall rise. Absent : tenderness, rash - Respiratory Respiratory exam: Present: normal lung sounds bilaterally. Absent: respiratory distress, wheezes - Cardiovascular Cardiovascular exam: Present: regular rate, normal rhythm, normal heart sounds - Abdominal Exam Abdominal exam: Present: soft, Non-Tender. Absent: distention, guarding, rebound - Extremities Exam Extremities exam: Present: normal inspection, full ROM - Neurological Exam Neurological exam: Present: alert, oriented X3 - Psychiatric Psychiatric exam: Present: normal affect, normal mood - Skin Skin exam: Present: warm Course Course Narrative: 49-year-old female presenting for fever. Here her temperature is 100.4. Was provided Tylenol 3 hours ago. Physical exam shows warm skin but otherwise benign. She is alert and oriented 3 in room with stable vital signs. Due to patient's immunocompromised state we will work her up as a neutropenic fever. Cultures, urine cultures and basic laboratory analysis to be completed. Disposition most likely admission versus transfer to [facility]. But this is pending results. Patient agrees with this plan. - Reevaluation(s) Reevaluation #1: Patient's laboratory analysis shows pancytopenia and neutropenia. Calculated absolute neutrophil count approximately 1000. Patient's chest x-ray shows possible pneumonia. No other abnormalities or changes from baseline and laboratory analysis. At this time we will provide the patient with vancomycin, Levaquin and Zosyn to cover healthcare acquired pneumonia. We will plan to admit the patient at this time. We attempted to transfer to [facility] but they are on diversion at this time. I spoke with the hospitalist production aide Dr. John who agrees to accept the patient at this time. Patient remains alert and oriented 3 in the room with stable vital signs. The hospitalist would like us to start maintenance fluids at 125 which I will do. Patient agrees with this plan. Vital Signs Temperature 100.4 F H 02/28/18 11:18 Pulse Rate 85 02/28/18 11:18 Respiratory Rate 16 02/28/18 11:18 Blood Pressure 105/54 02/28/18 11:18 O2 Sat by Pulse Oximetry 97 02/28/18 11:18 Temperature 100.4 F H 02/28/18 11:18 Pulse Rate 83 02/28/18 11:29 Respiratory Rate 18 02/28/18 11:29 Blood Pressure 105/54 02/28/18 11:29 O2 Sat by Pulse Oximetry 98 02/28/18 11:29 Oxygen Delivery Oxygen Delivery Room Air Medical Decision Making - Lab Data Result diagrams: 02/28/18 11:31 02/28/18 11:31 Lab Results 02/28/18 02/28/18 02/28/18 Range/Units 11:31 11:31 11:31 WBC 1.9 L (4.3-11.1) K/mcL RBC 3.17 L (3.82-4.97) M/mcL Hgb 7.8 L (11.5-15.4) g/dL Hct 24.3 L (35.3-44.9) % MCV 76.7 L (83.0-100.0) fL MCH 24.6 L (28.0-33.3) pg MCHC 32.1 (31.6-35.5) g/dL RDW 19.7 H (11.5-14.5) % Plt Count 98 L (140-400) K/mcL MPV 10.7 (9.4-12.4) fL Immature Gran % 0.5 (0-4) % Seg Neutrophils % 52.1 % Lymphocytes % 22.4 % Monocytes % 4.7 % Eosinophils % 19.8 % Basophils % 0.5 % Neutrophils # 1.0 L (1.6-8.9) K/mcL Lymphocytes # 0.4 L (0.6-4.6) K/mcL Monocytes # 0.1 (0.0-1.3) K/mcL Eosinophils # 0.4 (0.0-0.6) K/mcL Basophils # 0.0 (0.0-0.2) K/mcL Platelet Estimate Slight Decrease L (Normal) Anisocytosis 1+ A (Not Present) PT 14.2 H (9.4-12.1) Seconds INR 1.3 APTT 30.8 (26.0-36.0) Seconds Sodium 138 (136-145) mEq/L Potassium 3.1 L (3.5-5.1) mEq/L Chloride 106 (98-107) mEq/L Carbon Dioxide 22 L (23-29) mEq/L BUN 37 H (6-20) mg/dL Creatinine 3.73 H (0.60-1.20) mg/dL Est GFR ( Amer) 15 L (> 60) Est GFR (Non-Af Amer) 12 L (> 60) BUN/Creatinine Ratio 10 (6-26) Glucose 79 (70-105) mg/dL Calculated Osmolality 294 (280-300) Lactic Acid (0.5-2.2) mmol/L Calcium 7.6 L (8.6-10.3) mg/dL Magnesium 1.5 L (1.6-2.6) mg/dL Total Bilirubin 0.7 (0.3-1.0) mg/dL Direct Bilirubin 0.3 H (0.0-0.2) mg/dL Indirect Bilirubin 0.4 (0.0-1.2) mg/dL AST 42 H (13-39) Units/L ALT 26 (7-52) Units/L Alkaline Phosphatase 312 H (34-104) Units/L Troponin I 0.04 H* (< 0.04) ng/mL Serum Total Protein 4.7 L (6.4-8.9) g/dL Albumin 2.6 L (3.5-5.7) g/dL Globulin 2.1 L (2.4-3.5) g/dL Albumin/Globulin Ratio 1.2 (1.1-2.2) Urine Color (Yellow) Urine Clarity (Clear) Urine pH (5.0-8.0) pH Units Ur Specific [place] (1.010-1.025) Urine Protein (Neg-Trace) mg/dL Urine Glucose (UA) (Normal) mg/dL Urine Ketones (Negative) mg/dL Urine Blood (Negative) Urine Nitrite (Negative) Urine Bilirubin (Negative) Urine Urobilinogen (Normal) mg/dL Ur Leukocyte Esterase (Negative) Urine Microscopic RBC (0-3) per hpf Urine Microscopic WBC (0-3) per hpf Ur Squamous Epith Cells (None-Few) per lpf Amorphous Sediment (Few) Urine Bacteria (None-Few) per hpf Ur Culture Indicated? (NO) 02/28/18 02/28/18 Range/Units 11:31 12:02 WBC (4.3-11.1) K/mcL RBC (3.82-4.97) M/mcL Hgb (11.5-15.4) g/dL Hct (35.3-44.9) % MCV (83.0-100.0) fL MCH (28.0-33.3) pg MCHC (31.6-35.5) g/dL RDW (11.5-14.5) % Plt Count (140-400) K/mcL MPV (9.4-12.4) fL Immature Gran % (0-4) % Seg Neutrophils % % Lymphocytes % % Monocytes % % Eosinophils % % Basophils % % Neutrophils # (1.6-8.9) K/mcL Lymphocytes # (0.6-4.6) K/mcL Monocytes # (0.0-1.3) K/mcL Eosinophils # (0.0-0.6) K/mcL Basophils # (0.0-0.2) K/mcL Platelet Estimate (Normal) Anisocytosis (Not Present) PT (9.4-12.1) Seconds INR APTT (26.0-36.0) Seconds Sodium (136-145) mEq/L Potassium (3.5-5.1) mEq/L Chloride (98-107) mEq/L Carbon Dioxide (23-29) mEq/L BUN (6-20) mg/dL Creatinine (0.60-1.20) mg/dL Est GFR ( Amer) (> 60) Est GFR (Non-Af Amer) (> 60) BUN/Creatinine Ratio (6-26) Glucose (70-105) mg/dL Calculated Osmolality (280-300) Lactic Acid 1.1 (0.5-2.2) mmol/L Calcium (8.6-10.3) mg/dL Magnesium (1.6-2.6) mg/dL Total Bilirubin (0.3-1.0) mg/dL Direct Bilirubin (0.0-0.2) mg/dL Indirect Bilirubin (0.0-1.2) mg/dL AST (13-39) Units/L ALT (7-52) Units/L Alkaline Phosphatase (34-104) Units/L Troponin I (< 0.04) ng/mL Serum Total Protein (6.4-8.9) g/dL Albumin (3.5-5.7) g/dL Globulin (2.4-3.5) g/dL Albumin/Globulin Ratio (1.1-2.2) Urine Color Yellow (Yellow) Urine Clarity Cloudy A (Clear) Urine pH 6.0 (5.0-8.0) pH Units Ur Specific [place] 1.014 (1.010-1.025) Urine Protein >=300 H (Neg-Trace) mg/dL Urine Glucose (UA) Normal (Normal) mg/dL Urine Ketones Negative (Negative) mg/dL Urine Blood Negative (Negative) Urine Nitrite Negative (Negative) Urine Bilirubin Small H (Negative) Urine Urobilinogen Normal (Normal) mg/dL Ur Leukocyte Esterase Negative (Negative) Urine Microscopic RBC 0-3 (0-3) per hpf Urine Microscopic WBC 0-3 (0-3) per hpf Ur Squamous Epith Cells Few (None-Few) per lpf Amorphous Sediment Many H (Few) Urine Bacteria Few (None-Few) per hpf Ur Culture Indicated? NO (NO) - EKG Data EKG #1 EKG attestation: Yes I reviewed and interpreted this EKG. EKG results narrative: Sinus rhythm. 85 beats minute. NJ interval 161, QRS 78, QTC 471. No sign of acute ST segment elevation or ischemia. Compared to previous EKG completed on 02/02/2018 no significant changes noted
[2018-02-28 11:51] LABS: Immature Granulocytes % 0.5 % (0-4)
[2018-02-28 11:52] LABS: Basophils % 0.5 %; Eosinophils # 0.4 K/mcL (0.0-0.6); Eosinophils % 19.8 %; Hematocrit 24.3 % (35.3-44.9); Hemoglobin 7.8 g/dL (11.5-15.4); Lymphocytes # 0.4 K/mcL (0.6-4.6); Lymphocytes % 22.4 %; Mean Corpuscular HGB Conc 32.1 g/dL (31.6-35.5); Mean Corpuscular Hemoglobin 24.6 pg (28.0-33.3); Mean Corpuscular Volume 76.7 fL (83.0-100.0); Mean Platelet Volume 10.7 fL (9.4-12.4); Monocytes # 0.1 K/mcL (0.0-1.3); Monocytes % 4.7 %; Red Blood Count 3.17 M/mcL (3.82-4.97); Red Cell Distribution Width 19.7 % (11.5-14.5); Segmented Neutrophils % 52.1 %
[2018-02-28 11:56] LABS: INR 1.3; Platelet Count 98 K/mcL (140-400); Prothrombin Time 14.2 Seconds (9.4-12.1)
--- NOTE | 2018-02-28 11:58 | Emergency Department Note ---
Disposition Clinical Impression: Neutropenic fever, Elevated troponin Pneumonia Qualifiers: Pneumonia type: due to unspecified organism Laterality: unspecified laterality Lung location: unspecified part of lung Qualified Code(s): J18.9 - Pneumonia, unspecified organism Disposition: Admitted As Inpatient Condition: Fair Referrals: Leta Akins MD [Primary Care Provider] - Forms: ED Satisfaction Letter General Adult HPI - General Stated complaint: Fever Time Seen by Provider: 02/28/18 11:22 Source: patient, EMS Limitations: no limitations - History of Present Illness Pain Scale: 0 - Related Data Home Medications Medication Instructions Recorded Confirmed Acetaminophen [Tylenol] 325 - 650 mg PO Q4HR PRN 02/02/18 02/02/18 Albuterol Sulfate [Proair Hfa] 1 puff IH Q4H PRN 02/02/18 02/02/18 Budesonide/Formoterol 160/4.5 2 puff IH BIDR 02/02/18 02/02/18 [Symbicort 160/4.5] Calcium Carb, Citrate/Vit D3 1 tab PO DAILY 02/02/18 02/02/18 [Calcium + D3 ER Tablet] Citalopram [CeleXA] 20 mg PO DAILY 02/02/18 02/02/18 Ibuprofen [Ibu] 600 mg PO Q8H PRN 02/02/18 02/02/18 Ipilimumab [Yervoy] 110 ml IV ONCE 02/02/18 02/02/18 Metformin HCl [Metformin HCl] 1,000 mg PO BIDWM 02/02/18 02/02/18 Omeprazole [PriLOSEC] 20 mg PO DAILY 02/02/18 02/02/18 Triamcinolone Acet 0.1% CRM 1 appl TP BID 02/02/18 02/02/18 [Kenalog] Allergies Allergy/AdvReac Type Severity Reaction Status Date / Time No Known Allergies Allergy Verified 02/02/18 10:43 Past Medical History - Past Medical History Medical history: Reports: cancer, diabetes, other Psychiatric history: Reports: no psych history - Social History Smoking Status: Never smoker Smokeless Tobacco Status: No Alcohol use: Reports: none Drug use: Reports: none Physical Exam - General Limitations: no limitations General appearance: alert, in no apparent distress Course Vital Signs Temperature 100.4 F H 02/28/18 11:18 Pulse Rate 85 02/28/18 11:18 Respiratory Rate 16 02/28/18 11:18 Blood Pressure 105/54 02/28/18 11:18 O2 Sat by Pulse Oximetry 97 02/28/18 11:18 Temperature 100.4 F H 02/28/18 11:18 Pulse Rate 83 02/28/18 11:29 Respiratory Rate 18 02/28/18 11:29 Blood Pressure 105/54 02/28/18 11:29 O2 Sat by Pulse Oximetry 98 02/28/18 11:29 Oxygen Delivery Oxygen Delivery Room Air Medical Decision Making - Lab Data Result diagrams: 02/28/18 11:31 02/28/18 11:31 Lab Results 02/28/18 02/28/18 02/28/18 Range/Units 11:31 11:31 11:31 WBC 1.9 L (4.3-11.1) K/mcL RBC 3.17 L (3.82-4.97) M/mcL Hgb 7.8 L (11.5-15.4) g/dL Hct 24.3 L (35.3-44.9) % MCV 76.7 L (83.0-100.0) fL MCH 24.6 L (28.0-33.3) pg MCHC 32.1 (31.6-35.5) g/dL RDW 19.7 H (11.5-14.5) % Plt Count 98 L (140-400) K/mcL MPV 10.7 (9.4-12.4) fL Immature Gran % 0.5 (0-4) % Seg Neutrophils % 52.1 % Lymphocytes % 22.4 % Monocytes % 4.7 % Eosinophils % 19.8 % Basophils % 0.5 % Neutrophils # 1.0 L (1.6-8.9) K/mcL Lymphocytes # 0.4 L (0.6-4.6) K/mcL Monocytes # 0.1 (0.0-1.3) K/mcL Eosinophils # 0.4 (0.0-0.6) K/mcL Basophils # 0.0 (0.0-0.2) K/mcL Platelet Estimate Slight Decrease L (Normal) Anisocytosis 1+ A (Not Present) PT 14.2 H (9.4-12.1) Seconds INR 1.3 APTT 30.8 (26.0-36.0) Seconds Sodium 138 (136-145) mEq/L Potassium 3.1 L (3.5-5.1) mEq/L Chloride 106 (98-107) mEq/L Carbon Dioxide 22 L (23-29) mEq/L BUN 37 H (6-20) mg/dL Creatinine 3.73 H (0.60-1.20) mg/dL Est GFR ( Amer) 15 L (> 60) Est GFR (Non-Af Amer) 12 L (> 60) BUN/Creatinine Ratio 10 (6-26) Glucose 79 (70-105) mg/dL Calculated Osmolality 294 (280-300) Lactic Acid (0.5-2.2) mmol/L Calcium 7.6 L (8.6-10.3) mg/dL Magnesium 1.5 L (1.6-2.6) mg/dL Total Bilirubin 0.7 (0.3-1.0) mg/dL Direct Bilirubin 0.3 H (0.0-0.2) mg/dL Indirect Bilirubin 0.4 (0.0-1.2) mg/dL AST 42 H (13-39) Units/L ALT 26 (7-52) Units/L Alkaline Phosphatase 312 H (34-104) Units/L Troponin I 0.04 H* (< 0.04) ng/mL Serum Total Protein 4.7 L (6.4-8.9) g/dL Albumin 2.6 L (3.5-5.7) g/dL Globulin 2.1 L (2.4-3.5) g/dL Albumin/Globulin Ratio 1.2 (1.1-2.2) Urine Color (Yellow) Urine Clarity (Clear) Urine pH (5.0-8.0) pH Units Ur Specific Morris (1.010-1.025) Urine Protein (Neg-Trace) mg/dL Urine Glucose (UA) (Normal) mg/dL Urine Ketones (Negative) mg/dL Urine Blood (Negative) Urine Nitrite (Negative) Urine Bilirubin (Negative) Urine Urobilinogen (Normal) mg/dL Ur Leukocyte Esterase (Negative) Urine Microscopic RBC (0-3) per hpf Urine Microscopic WBC (0-3) per hpf Ur Squamous Epith Cells (None-Few) per lpf Amorphous Sediment (Few) Urine Bacteria (None-Few) per hpf Ur Culture Indicated? (NO) 02/28/18 02/28/18 Range/Units 11:31 12:02 WBC (4.3-11.1) K/mcL RBC (3.82-4.97) M/mcL Hgb (11.5-15.4) g/dL Hct (35.3-44.9) % MCV (83.0-100.0) fL MCH (28.0-33.3) pg MCHC (31.6-35.5) g/dL RDW (11.5-14.5) % Plt Count (140-400) K/mcL MPV (9.4-12.4) fL Immature Gran % (0-4) % Seg Neutrophils % % Lymphocytes % % Monocytes % % Eosinophils % % Basophils % % Neutrophils # (1.6-8.9) K/mcL Lymphocytes # (0.6-4.6) K/mcL Monocytes # (0.0-1.3) K/mcL Eosinophils # (0.0-0.6) K/mcL Basophils # (0.0-0.2) K/mcL Platelet Estimate (Normal) Anisocytosis (Not Present) PT (9.4-12.1) Seconds INR APTT (26.0-36.0) Seconds Sodium (136-145) mEq/L Potassium (3.5-5.1) mEq/L Chloride (98-107) mEq/L Carbon Dioxide (23-29) mEq/L BUN (6-20) mg/dL Creatinine (0.60-1.20) mg/dL Est GFR ( Amer) (> 60) Est GFR (Non-Af Amer) (> 60) BUN/Creatinine Ratio (6-26) Glucose (70-105) mg/dL Calculated Osmolality (280-300) Lactic Acid 1.1 (0.5-2.2) mmol/L Calcium (8.6-10.3) mg/dL Magnesium (1.6-2.6) mg/dL Total Bilirubin (0.3-1.0) mg/dL Direct Bilirubin (0.0-0.2) mg/dL Indirect Bilirubin (0.0-1.2) mg/dL AST (13-39) Units/L ALT (7-52) Units/L Alkaline Phosphatase (34-104) Units/L Troponin I (< 0.04) ng/mL Serum Total Protein (6.4-8.9) g/dL Albumin (3.5-5.7) g/dL Globulin (2.4-3.5) g/dL Albumin/Globulin Ratio (1.1-2.2) Urine Color Yellow (Yellow) Urine Clarity Cloudy A (Clear) Urine pH 6.0 (5.0-8.0) pH Units Ur Specific Morris 1.014 (1.010-1.025) Urine Protein >=300 H (Neg-Trace) mg/dL Urine Glucose (UA) Normal (Normal) mg/dL Urine Ketones Negative (Negative) mg/dL Urine Blood Negative (Negative) Urine Nitrite Negative (Negative) Urine Bilirubin Small H (Negative) Urine Urobilinogen Normal (Normal) mg/dL Ur Leukocyte Esterase Negative (Negative) Urine Microscopic RBC 0-3 (0-3) per hpf Urine Microscopic WBC 0-3 (0-3) per hpf Ur Squamous Epith Cells Few (None-Few) per lpf Amorphous Sediment Many H (Few) Urine Bacteria Few (None-Few) per hpf Ur Culture Indicated? NO (NO) Attestation Statement - Attestation Attestation: I examined this patient and my medical decision making was reviewed with the Resident Physician. I agree with the documented findings, disposition and treatment plan as described except to the extent set forth below. We independently had [id number] contact with the patient. Resident Roque Garcia 57-year-old female with a history of diabetes, COPD, metastatic melanoma who recently underwent immunotherapy on 02/02 at [facility] presents today for evaluation of fever of 103. Concern for sepsis. Patient had recently undergone a week long stay at [facility] for evaluation of this fever. Apparently no known cause. Patient states she has had episodes of diarrhea has not complained of chest pain or shortness of breath. The patient will undergo further evaluation with neutropenia and fever workup. Blood cultures have been obtained. Blood work, EKG, chest x-ray and urinalysis have been ordered. Please see resident note for further details and disposition. Awake alert and oriented 3. No acute distress. Heart regular rate and rhythm. Lungs clear to auscultation bilaterally. Abdomen soft nontender to palpation. There is no evidence of cellulitis along the skin or within the gluteal folds. No specific clinical indication for infectious etiology at this time. The patient has pancytopenia. Awaiting differential. Troponin 0.04 with EKG showing no ST elevations. AVL is inverted which is a new finding compared to previous 02/02/18. Chest x-ray shows evidence of possible pneumonia. HCAP antibiotics have been ordered. Elevated troponin. No significant changes on EKG. No chest pain. Aspirin given. Repeat troponin would be prudent helping differentiate underlying etiology.
[2018-02-28 11:59] LABS: Activated Partial Thrombo Time 30.8 Seconds (26.0-36.0)
[2018-02-28] MEDS ORDERED: Piperacillin/Tazobactam 3.375 GM in 0.9 % Sodium Chloride Mini Bag 100 ML IVPB ONE (12:07)
[2018-02-28] MEDS ORDERED: Levofloxacin 750 MG/150 ML 750 MG/150 ML BAG IVPB ONE (12:07)
[2018-02-28 12:15] LABS: Bilirubin,Urine Small (Negative); Blood,Urine Negative (Negative); Clarity,Urine Cloudy (Clear); Color,Urine Yellow (Yellow); Glucose,Urine (UA) Normal (Normal); Ketones,Urine Negative (Negative); Leukocyte Esterase,Urine Negative (Negative); Nitrite,Urine Negative (Negative); Protein,Urine >=300 mg/dL (Neg-Trace); Specific Gravity,Urine 1.014 (1.010-1.025); Urobilinogen,Urine Normal (Normal)
[2018-02-28 12:18] LABS: Albumin 2.6 g/dL (3.5-5.7); Albumin/Globulin Ratio 1.2 (1.1-2.2); Bilirubin,Direct 0.3 mg/dL (0.0-0.2); Bilirubin,Indirect 0.4 mg/dL (0.0-1.2); Bilirubin,Total 0.7 mg/dL (0.3-1.0); Calcium 7.6 mg/dL (8.6-10.3); Globulin 2.1 g/dL (2.4-3.5); Magnesium 1.5 mg/dL (1.6-2.6); Potassium 3.1 mEq/L (3.5-5.1); Total Protein 4.7 g/dL (6.4-8.9)
[2018-02-28 12:21] LABS: Troponin I 0.04 ng/mL (< 0.04)
[2018-02-28 12:31] LABS: Amorphous Sediment,Urine Many (Few); Squamous Epithelial Cell,Urine Few per lpf (None-Few)
[2018-02-28 12:32] LABS: Platelet Estimate Slight Decrease (Normal)
[2018-02-28 12:32] LABS: Bacteria,Urine Few per hpf (None-Few); RBC,Urine 0-3 per hpf (0-3); WBC,Urine 0-3 per hpf (0-3)
[2018-02-28 12:35] LABS: Anisocytosis 1+ (Not Present)
[2018-02-28] MEDS ORDERED: Aspirin 325 MG TABLET PO SCH (13:15)
--- NOTE | 2018-02-28 13:32 | Electrocardiograph Report ---
[facility] Test Date: 2018-02-28 Pat Name: Abril Orellana Department: EXAM1 Room: Gender: F Online Merchant: : 1960 Requested By: Bertha Garcia Order Number: [id number] Reading MD: Girish Elias Measurements Intervals [place] Rate: 85 P: 38 PA: 161 QRS: 75 QRSD: 78 T: 87 QT: 396 QTc: 471 Interpretive Statements Sinus rhythm Electronically Signed On 02-28-2018 13:30:26 EDT by Girish Elias
[2018-02-28] MEDS: 0.9 % Sodium Chloride 1,000 ML IVC SCH ×2 (13:41→22:12)
[2018-02-28] MEDS ORDERED: Acetaminophen 325 MG TABLET PO PRN (13:53)
[2018-02-28] MEDS ORDERED: Naloxone 0.4 MG/ML INJ IVP PRN (13:55)
[2018-02-28] MEDS ORDERED: D5% in Water 1,000 ML IVC PRN (14:09)
[2018-02-28] MEDS ORDERED: Dextrose Gel 15 GM/37.5 ML TUBE PO PRN ×2 (14:09)
[2018-02-28] MEDS ORDERED: *HR* Dextrose 50 % in Water (Syg) 50 ML SYRINGE IVP PRN (14:09)
--- NOTE | 2018-02-28 14:12 | Internal Med History&Physical ---
Date of Encounter: 02/28/18 Time of Encounter: 15:01 Internal Medicine - H&P: HPI Chief complaint: fever Admitted From: Long-term Nursing Facility Plans for Post Hospital Care: Transfer Snf Facility History of present illness: Ms. 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 Last session of immunotherapy was 02/04 prior to admission here at [facility] The patient was in this facility from Jan to 02/10 when she was transferred to [facility] due to the fact that she received her care there and fever remained persistent. During that admission, she was managed with IV ab, Infectious disease, nephrology and oncology were co-managing. At the [facility], she had received HD for 24-48 hrs, she was placed on pressors while in the intensive care unit and according to her daughter, she had made improvement in her renal function prior to discharge to SNF. She had been afebrile for 4 days prior to discharge to SNF from [facility]. Her Cr went as high as 6 but last remembered value per daughter was 1.9, prior to discharge. She was also tested for C.diff for which she was negative, she did receive tube feeds during her stay at [facility] According to the patient, she was just discharged from [facility] 3 days ago to a SNF and developed fever at the SNF 2 days prior to presentation associated lose stools and nausea, no abdominal pain, no chest pain, no SOB or cough. She denies headaches, neck stiffness, she denies confusion or focal weakness On presentation to the ER, she is febrile, and pancytopenic. ANC is 1000. CXR showed LLL PNA. During her admission in 01/2018 , she has RUL and RLL PNA. Her renal function is worse than values on 02/10 and values from [facility] (Obtained from daughter, reliable historian). EKG was NSR. She was being planned for transfer to [facility] is on diversion, and patient was admitted to this facility During my evaluation, her main complains are nausea, persistent diarrhea and feeling dry mouth She will be admitted inpatient for management of sepsis secondary to PNA, LLL, suspect enteritis likely infectious or inflammatory in origin and r/o UTI. She also has DINAH on CKD and will require multiple nights in the hospital Past Med Surg Social Fam HX - Past Medical History Medical history: cancer, diabetes, other Additional medical history: melonoma and lymph nodes, low platlets Psychiatric history: no psych history - Past Surgical History Additional surgical history: lymph node biopsy - Social History Smoking Status: Never smoker Smokeless Tobacco Status: No Alcohol use: none Drug use: none Internal Medicine - H&P: Meds Ipilimumab [Yervoy] 3 mg IV Q3W 02/02/18 [History] Acetaminophen [Tylenol] 325 mg PO Q4H PRN 02/28/18 [History] Albuterol Sulfate [Ventolin Hfa] 1 puff IH Q4H PRN 02/28/18 [History] Budesonide/Formoterol 160/4.5 [Symbicort 160/4.5] 2 puff IH BIDR 02/28/18 [ History] Calcium Carbonate/Vitamin D3 [Calcium 500 + Vit D Caplet] 1 tab PO DAILY [History] Citalopram [CeleXA] 20 mg PO DAILY 02/28/18 [History] Ferrous Sulfate [Iron] 325 mg PO TID 02/28/18 [History] Na Phos,M-B/Na Phos,Di-Ba [Fleet Enema Extra] 230 ml RC Q48H PRN 02/28/18 [ History] Omeprazole [PriLOSEC] 20 mg PO DAILY 02/28/18 [History] Ondansetron [Zofran] 8 mg PO Q8HR PRN 02/28/18 [History] Triamcinolone Acet 0.1% CRM [Kenalog] 1 appl TP BID 02/28/18 [History] amLODIPine [Norvasc] 5 mg PO DAILY 02/28/18 [History] metFORMIN [Glucophage] 500 mg PO BIDWM 02/28/18 [History] predniSONE [PredniSONE] 5 mg PO 1800 02/28/18 [History] predniSONE [PredniSONE] 10 mg PO DAILY 02/28/18 [History] 3 Allergy/AdvReac Type Severity Reaction Status Date / Time No Known Allergies Allergy Verified 02/02/18 10:43 All Systems PM: A 10-system review of systems was performed and is negative for pertinent findings except as documented above in the HPI. - Constitutional Constitutional: as per HPI - EENT Eyes: as per HPI Ears: as per HPI Nose, mouth and throat: as per HPI - Cardiovascular Cardiovascular ROS IM: as per HPI - Respiratory Respiratory: as per HPI - Gastrointestinal Gastrointestinal: as per HPI - Genitourinary Genitourinary: as per HPI - Musculoskeletal Musculoskeletal ROS IM: as per HPI - Integumentary Integumentary IM: as per HPI - Neurological Neurological ROS: as per HPI - Hematologic/Lymphatic Hematologic/Lymphatic: as per HPI - Constitutional Vitals: Temp Pulse Resp BP Pulse Ox 99.6 F 80 16 125/65 97 02/28/18 14:02/28/18 14:02/28/18 14:02/28/18 14:02/28/18 14:09 General appearance: Present: mild distress, A&O X 3, pleasant Exam: see detailed exam below - Head Head exam: Present: atraumatic, normocephalic - Eye Eye exam: Present: PERRL, conjuntiva pink, sclera anicteric Pupils: Present: PERRL - Neck Neck exam general surgery: Present: supple, trachea midline. Absent: lymphadenopathy - Respiratory Respiratory exam: Present: CTAB. Absent: accessory muscle use, rales, rhonchi, wheezes - Cardiovascular Cardiovascular exam: Present: RRR, +S1, +S2. Absent: diastolic murmur, gallop, rubs, systolic murmur - GI/Abdominal GI/Abdominal exam: Present: normal bowel sounds, soft, no peritoneal signs. Absent: distended, tenderness - Extremities Exam Extremities exam: Present: pedal edema, warm, radial pulses palpable and symmetrical. Absent: calf tenderness, cyanotic - Neurological Exam Neurological exam: Present: alert, CN II-XII intact, oriented X3, no focal deficits. Absent: pronater drift, facial droop, speech deficit - Skin Skin exam: Present: dry, intact Internal Med - H&P Results - Labs CBC & Chem 7: 02/28/18 11:31 02/28/18 11:31 - Assessment and plan (1) Sepsis Current Visit: Yes Status: Acute Assessment and plan: Patient met severe sepsis criteria with fever or 100.4, leukppenia, wit WBC od 1.9, DINAH on CKD, source being pneumonia, vs GI source Patient on immunotherapy recently admitted here and at [facility] during which she had severe sepsis with DINAH and Shock requiring pressors, dischargd to SNF 4 days prior to presentation Blood pressure here acceptable, on IVF Continue iVF Blood cultures drawn in ER, will follow Obtain Urine and Stool culture and panel Obtain Resp panel Started on Van/Zosyn/Levaquin, will continue same, renally dosed, pharm to dose Patient with normal lactate 1.1 Qualifiers: Sepsis type: sepsis due to unspecified organism Qualified Code(s): A41.9 - Sepsis, unspecified organism (2) Pneumonia Current Visit: Yes Status: Acute Assessment and plan: as above not hypoxic, no cough Qualifiers: Pneumonia type: due to unspecified organism Laterality: unspecified laterality Lung location: unspecified part of lung Qualified Code(s): J18.9 - Pneumonia, unspecified organism (3) [id number] kidney injury Current Visit: Yes Status: Acute Assessment and plan: Continue IVF hydration Renal USS from last admission noted for multiple adenopathy, patient required HD at that time Consult nephrology for recommendations I/Os, strict measurement Continue IVF Consider adding albumin due to malnutrition, avoid nephrotoxins Qualifiers: Acute renal failure type: unspecified Chronic kidney disease stage: unspecified stage Qualified Code(s): N17.9 - Acute kidney failure, unspecified ; N18.9 - Chronic kidney disease, unspecified (4) Diabetes mellitus Current Visit: Yes Status: Chronic Assessment and plan: Sliding scale insulin, FS ACHS Qualifiers: Diabetes mellitus type: type 2 Diabetes mellitus emt intermediate insulin use: without chcf use Diabetes mellitus complication status: without complication Qualified Code(s): E11.9 - Type 2 diabetes mellitus without complications (5) DVT prophylaxis Current Visit: Yes Status: Acute Assessment and plan: EPCDs, patient with anemia and thrombocytopenia (6) Elevated troponin Current Visit: Yes Status: Acute Assessment and plan: Presented with trop of 0.04, will cycle, likely due to demand from sepsis and DINAH Obtain ECHO a.m Continue to monitor, no chest pain, EKG is NSR (7) Hypomagnesemia Current Visit: Yes Status: Acute Assessment and plan: Replace with 2g, patient with DINAH on CKD, monitor closely (8) Malignant melanoma Current Visit: Yes Status: Chronic Assessment and plan: immunotherpay on hold due to recurrent infections Patient receives her care at [facility], consider transfer there when clinically improved Qualifiers: Melanoma location: unspecified site Qualified Code(s): C43.9 - Malignant melanoma of skin, unspecified (9) Pancytopenia Current Visit: Yes Status: Chronic Assessment and plan: Acute on chronic, continue to monitor (10) Enteritis Current Visit: Yes Status: Acute Assessment and plan: Supportive care Obtain Stool panel Abdomen is not acute, consider abdomen imaging if no improvement clinically (11) Hypokalemia Current Visit: Yes Status: Acute Assessment and plan: replace mag, replace K with 40meq only, likely due to GI loss from diarrhea (12) Malnutrition Current Visit: Yes Status: Chronic Assessment and plan: Consult nutrition Likely due to Cancer Qualifiers: Malnutrition type: protein-calorie malnutrition Protein-calorie malnutrition severity: unspecified severity Qualified Code(s): E46 - Unspecified protein-calorie malnutrition - Time Spent With Patient Total time spent is greater than 50% in coordination of care (as documented) at patient's floor/unit and/or counseling patient:
[2018-02-28] MEDS ORDERED: Ondansetron 4 MG/2 ML VIAL IVP PRN (14:58)
[2018-02-28] MEDS ORDERED: Insulin LISPRO 300 UNITS/3 ML VIAL SQ SCH ×2 (16:30→21:00)
[2018-02-28] MEDS ORDERED: predniSONE 5 MG TABLET PO SCH (18:00)
[2018-02-28 19:20] LABS: Bilirubin,Urine Negative (Negative); Blood,Urine Trace (Negative); Clarity,Urine Cloudy (Clear); Color,Urine Yellow (Yellow); Glucose,Urine (UA) Normal (Normal); Ketones,Urine Negative (Negative); Leukocyte Esterase,Urine Negative (Negative); Nitrite,Urine Negative (Negative); Protein,Urine >=300 mg/dL (Neg-Trace); Specific Gravity,Urine 1.009 (1.010-1.025); Urobilinogen,Urine Normal (Normal)
[2018-02-28 19:22] LABS: Bacteria,Urine None Seen per hpf (None-Few); Squamous Epithelial Cell,Urine Many per lpf (None-Few)
[2018-02-28 19:39] LABS: Hyaline Casts,Urine Few per lpf (None-Few)
[2018-02-28] MEDS ORDERED: Hydrocortisone Sodium Succ 100 MG/2 ML VIAL IVP ONE (20:27)
[2018-02-28] MEDS ORDERED: Hydrocortisone Sodium Succ 100 MG/2 ML VIAL ONE (20:37)
[2018-02-28] MEDS ORDERED: Triamcinolone Acet 0.1% CRM 15 GM TUBE TP SCH (21:00)
[2018-02-28] MEDS ORDERED: D5% in 0.9% NACL 1,000 ML IVC SCH (21:15)
[2018-02-28 22:06] LABS: Hematocrit 29.3 % (35.3-44.9); Hemoglobin 8.9 g/dL (11.5-15.4)
[2018-02-28] MEDS: Norepinephrine 4 MG in D5% in Water 250 ML IVC SCH (22:19)
[2018-02-28] MEDS: Budesonide/Formoterol 160/4.5 1 PUFF INH IH SCH (22:34)
[2018-02-28 22:59] LABS: ABG Base Excess -12 mEq/L (-2 to 3); ABG HCO3 13 mEq/L (21-27); ABG Oxygen Saturation 90 % (95-98); ABG PCO2 27 mmHg (35-45); ABG PH 7.29 pH Units (7.32-7.45); ABG PO2 63 mmHg (85-104); ABG TCO2 14 mEq/L (20-26)
[2018-02-28] MEDS ORDERED: Vasopressin 40 UNIT in D5% in Water 100 ML IV SCH (23:00)
[2018-03-01] MEDS ORDERED: *HR* Dextrose 50 % in Water (Syg) 50 ML SYRINGE IVP PRN (00:05)
[2018-03-01] MEDS ORDERED: D5% in Water 1,000 ML IVC PRN (00:05)
[2018-03-01] MEDS ORDERED: Dextrose Gel 15 GM/37.5 ML TUBE PO PRN ×2 (00:05)
[2018-03-01] MEDS ORDERED: Albuterol 2.5 MG/3 ML NEBULIZER IH PRN (00:35)
--- NOTE | 2018-03-01 00:36 | Event Note ---
Date of Encounter: 02/28/18 Time of Encounter: 20:33 I was called to patient's bedside for hypotension and evidence of septic shock. Upon my arrival to the patient's room, she had evidence of poor perfusion, hypotension, and increased work of breathing. She was receiving maintenance fluids and I ordered a saline bolus. I then requested a transfer to the ICU from bed management. However, ICU beds were not available at the time, and I remained at her bedside to stabilize patient. Her blood pressure was not fluid responsive, and I therefore requested a central venous catheter for placement of a CVC and likely pressor support. While waiting for CVC kit, patient had increased somnolence, became unresponsive, and apneic for several seconds. I therefore pressed the CODE button and called a rapid response at that time. Patient was being ventilated by bag mask ventilation by Dr. Manning and respiratory therapy. Blood pressure at that time was 50s/30s, and I placed a right femoral vein central venous catheter emergently for hemodynamic stabilization. We started patient on dopamine initially through peripheral IV while I was placing the CVC. Once the CVC was placed, we started Levophed infusion. Blood pressure improved. Additionally, we gave her a dose of Solu- Cortef for stress dose steroids given her chronic steroid use and current evidence of sepsis. She responded to the above and started breathing spontaneously on her own. She was placed back on oxygen and we did not have his intubate her at that moment. We then transferred her to the ICU when a bed became available. In the ICU, she initially required 2 pressors to maintain blood pressure. These included Dopamine and Levophed. Her dopamine is currently weaned off and her Levophed is being weaned slowly to maintain MAP greater than 65. She has slight shortness of breath, but overall, is much improved compared to earlier. I scheduled her on stress dose steroids as well as her fluids and antibiotics. I will ask intensive care unit turbine operator to assume care in the morning for ongoing management of septic shock. After patient was stabilized, I met with and discussed with family at length and they are in agreement with the plan. I informed them of the emergent need for CVC placement as above and they are in full agreement as well. Exam currently: Pulse 125; RR 28; BP 111/50; Temperature not yet documented but reported verbally to me to be 103 degrees Fahrenheit during rapid response HEENT: Pale conjunctiva; dry mucosa Chest: Coarse rhonchi with scattered wheezes and mild retractions; tachycardic rhythm Abdomen: Soft, nontender, hypoactive bowel sounds, mildly distended Extremities: No calf tenderness, no joint effusion, absent capillary refill with pale nailbeds and poor perfusion Impression/Plan: 1. Septic shock: Continue IV fluids, IV pressors, IV antibiotics, and stress dose steroids. Patient may need intubation for overwhelming sepsis. 2. Respiratory distress/failure: Continue oxygen support, steroids, aerosols, and CPAP/BiPAP if necessary. Additionally, we will intubate if necessary for respiratory failure and/or overwhelming sepsis. Consult turbine operator for ICU management in the morning. Total critical care time thus far was in excess of 60 minutes.
[2018-03-01] MEDS: Norepinephrine 4 MG in D5% in Water 250 ML IVC SCH (01:00)
[2018-03-01 01:50] LABS: Adenovirus F 40/41 PCR Not detected (Not detect); Astrovirus PCR Not detected (Not detect); C.difficile Toxin A/B by PCR Not detected (Not detect); Campylobacter by PCR Not detected (Not detect); Cryptosporidium by PCR Not detected (Not detect); Cyclospora cayetanensis PCR Not detected (Not detect); E. coli O157 by PCR Not detected (Not detect); Entamoeba histolytica PCR Not detected (Not detect); Enteroaggregative E.coli(EAEC) Not detected (Not detect); Enteropathogenic E.coli(EPEC) Not detected (Not detect); Enterotoxigenic E.coli (ETEC) Not detected (Not detect); Giardia lamblia PCR Not detected (Not detect); Norovirus GI/GII PCR Not detected (Not detect); Plesiomonas shigelloides PCR Not detected (Not detect); Rotavirus A PCR Not detected (Not detect); Salmonella PCR Not detected (Not detect); Sapovirus PCR Not detected (Not detect); Shig/EnteroinvasiveE coli EIEC Not detected (Not detect); Shigalike tox-prod E coli STEC Not detected (Not detect); Vibrio PCR Not detected (Not detect); Vibrio cholerae PCR Not detected (Not detect); Yersinia enterocolitica PCR Not detected (Not detect)
[2018-03-01] MEDS: Ipratropium/Albuterol Neb 3 ML IH SCH ×2 (03:44→09:51)
[2018-03-01] MEDS ORDERED: Piperacillin/Tazobactam 3.375 GM in 0.9 % Sodium Chloride Mini Bag 100 ML IVPB SCH (04:00)
[2018-03-01] MEDS ORDERED: Acetaminophen IV 1,000 MG/100 ML INFUS..BTL IVPB ONE (04:25)
--- NOTE | 2018-03-01 04:26 | Pulmonology Consult Note ---
<Bashir Busby - Last Filed: 03/01/18 06:26> Date of Encounter: 03/01/18 Time of Encounter: 00:01 Assessment and Plan (1) Septic shock Current Visit: Yes Status: Acute Patient met septic shock criteria with leukopenia WBC 1.9, temp 100 1.5F, tachycardia heart rate 143, lactic acid level 3.9, and hypotension 73/36 Possible underlying HCAP and infectious or inflammatory enteritis as likely source of infection Patient required emergent central line placement was started on pressors prior to transfer to ICU. She was started on Solu-Cortef stress dose steroids secondary to chronic steroid dependence and current clinical presentation Critical care was consulted for ICU management Blood cultures are pending Sputum culture pending Urine culture pending Repeat lactic acid levels 2.6 --> 2.1 Patient started on empiric vancomycin and Zosyn (day 2) De-escalate antibiotics based on culture results (2) Acute respiratory failure with hypoxia Current Visit: Yes Status: Acute Patient developed acute respiratory distress, increased work of breathing with episodes of apnea, PO2 level 63 ABG revealed non-gap primary metabolic acidosis with secondary respiratory alkalosis Continue supplemental oxygen and bronchodilators (3) Healthcare-associated pneumonia Current Visit: Yes Status: Acute Immunocompromised patient from [facility] with a recent hospitalization 02/03/18 - Presented with shortness breath, leukopenia, and CXR with findings consistent with LLL pneumonia Respiratory infection panel pending Urine strep pneumo and Legionella antigens pending Blood cultures are pending Sputum culture pending Patient started on empiric vancomycin and Zosyn (day 2) De-escalate antibiotics based on culture results (4) Enteritis Current Visit: Yes Status: Acute Patient on immunotherapy treatments for vulvar metastatic melanoma who presented with fever up to 103 F, malaise, nausea, and ongoing diarrhea Differential diagnosis includes infectious vs inflammatory enteritis GI panel negative Patient started on empiric vancomycin and Zosyn (day 2) De-escalate antibiotics based on culture results Nothing by mouth Continue IV hydration (5) DINAH (acute kidney injury) Current Visit: Yes Status: Acute DINAH in the setting of dehydration from diarrhea, renal hypoperfusion perfusion during hypotension/ septic shock Continue IV hydration Monitor for signs of fluid overload Avoid nephrotoxins Consider nephrology consult if renal function does not improve with IV hydration (6) Elevated troponin Current Visit: Yes Status: Acute Elevated troponin likely due to demand ischemia in the setting of septic shock Troponin level 0.04, 0.04, 0.07, 0.07 EKG shows no signs of ischemia Continue home aspirin Trend serial troponins (7) Hypokalemia Current Visit: Yes Status: Acute Supplement potassium Continue monitoring (8) Hypomagnesemia Current Visit: Yes Status: Acute Supplement magnesium Continue monitoring (9) Pancytopenia Current Visit: Yes Status: Chronic Immunocompromised patient with pancytopenia Hemoglobin dropped from 8.9 to 7.1, no signs of bleeding Type and screen performed, transfuse prn hemoglobin less than 7 Continue close monitoring (10) Immunosuppression Current Visit: Yes Status: Chronic Patient last received Nivolumab 12/27/17 and Yervoy 01/31/18 at [facility] (11) Malignant melanoma Current Visit: Yes Status: Chronic 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 Patient is followed at [facility] Qualifiers: Melanoma location: unspecified site Qualified Code(s): C43.9 - Malignant melanoma of skin, unspecified (12) Diabetes mellitus Current Visit: Yes Status: Chronic Hemoglobin A1c 7.4 on 02/02/18 IV fluids switched from D5 to normal saline Patient started on steroids which can elevated blood glucose levels Continue low dose SSI Continue Accu-Cheks Qualifiers: Diabetes mellitus type: type 2 Diabetes mellitus half-way insulin use: without half-way use Diabetes mellitus complication status: without complication Qualified Code(s): E11.9 - Type 2 diabetes mellitus without complications (13) Malnutrition Current Visit: Yes Status: Chronic Patient with loss a subcuticular fat, decreased energy intake, decreased re recording mixer strength Patient is currently nothing by mouth Qualifiers: Malnutrition type: protein-calorie malnutrition Protein-calorie malnutrition severity: moderate Qualified Code(s): E44.0 - Moderate protein- calorie malnutrition (14) COPD (chronic obstructive pulmonary disease) Current Visit: No Status: Chronic Continue bronchodilators Qualifiers: COPD type: unspecified COPD Qualified Code(s): J44.9 - Chronic obstructive pulmonary disease, unspecified (15) GERD (gastroesophageal reflux disease) Current Visit: Yes Status: Chronic Continue PPI Qualifiers: Esophagitis presence: esophagitis presence not specified Qualified Code(s) : K21.9 - Gastro-esophageal reflux disease without esophagitis (16) DVT prophylaxis Current Visit: Yes Status: Acute EPCDs History of Present Illness Consult date: 02/28/18 Requesting physician: Henry Causey Reason for consult: dyspnea (septic shock) Chief complaint: Fever History of present illness: Ms. Blevins is a 57-year-old female with a past medical history of DM type 2, COPD , and immunotherapy treatments for vulvar metastatic melanoma who presented to the ED from a SNF due to fever up to 103 F, malaise, nausea, and dehydration likely from ongoing diarrhea. Patient denies chest pain, productive cough, headache, neck stiffness, confusion, rash, or worsening pedal edema. Labs in the ED revealed pancytopenia with ANC 1000. Chest x-ray revealed evidence of possible LLL pneumonia and patient was started on empiric antibiotics for possible underlying HCAP and infectious or inflammatory enteritis. Patient's troponin levels have been elevated but EKG revealed no signs of ischemia. Rapid response was called last night secondary to unresponsiveness, hypotension and increased work of breathing with episodes of apnea. Patient required emergent central line placement was started on pressors prior to transfer to ICU. Critical care was consulted secondary to septic shock. She was given Solu- Cortef stress dose steroids secondary to chronic steroid dependence and clinical presentation. ABG revealed metabolic acidosis with inadequate respiratory compensation. Of note, patient last received Nivolumab 12/27/17 and Yervoy 01/31/18 at [facility]. During patient's last ICU admission here on 02/03/18, family requested transfer to [facility] for further workup of similar symptoms of persistent fever. She required intermittent dialysis and received IV antibiotics and tube feeds while hospitalized at [facility]. Family reports patient was afebrile for 4 days prior to her discharge to SNF 3 days ago. Patient anticipated being transferred to [facility] during this hospitalization but [facility] is currently on diversion. Past Med Surg Social Fam HX - Past Medical History Medical history: cancer, diabetes, other Additional medical history: low platlets, COPD, diabetes type II, GERD, osteopenia, Psoriasis, Melanoma- lumph nodes Psychiatric history: no psych history - Past Surgical History Additional surgical history: etopic pregenacy 1982, cholecystectomy 1985, tubal ligation 1985, ORIF left wrist 2008, Tumor removed melanoma 04/19/17, Biopsy left groin lymph node 01/17/18, lymph node biopsy, radical bilateral vulvectomy - Social History Smoking Status: Former smoker Smokeless Tobacco Status: No Alcohol use: none Drug use: none Current living situation: ECF - Family History Mother Living Status: Hx Family Cardiac Disorders: Yes Hx Family Cancer: Yes (Breast) Father Hx Family Cardiac Disorders: Yes (HTN) Hx Family Cancer: Yes Sister Hx Family Cancer: Yes Medications and Allergies Ipilimumab [Yervoy] 3 mg IV Q3W 02/02/18 [History] Acetaminophen [Tylenol] 325 mg PO Q4H PRN 02/28/18 [History] Albuterol Sulfate [Ventolin Hfa] 1 puff IH Q4H PRN 02/28/18 [History] Budesonide/Formoterol 160/4.5 [Symbicort 160/4.5] 2 puff IH BIDR 02/28/18 [ History] Calcium Carbonate/Vitamin D3 [Calcium 500 + Vit D Caplet] 1 tab PO DAILY [History] Citalopram [CeleXA] 20 mg PO DAILY 02/28/18 [History] Ferrous Sulfate [Iron] 325 mg PO TID 02/28/18 [History] Na Phos,M-B/Na Phos,Di-Ba [Fleet Enema Extra] 230 ml RC Q48H PRN 02/28/18 [ History] Omeprazole [PriLOSEC] 20 mg PO DAILY 02/28/18 [History] Ondansetron [Zofran] 8 mg PO Q8HR PRN 02/28/18 [History] Triamcinolone Acet 0.1% CRM [Kenalog] 1 appl TP BID 02/28/18 [History] amLODIPine [Norvasc] 5 mg PO DAILY 02/28/18 [History] metFORMIN [Glucophage] 500 mg PO BIDWM 02/28/18 [History] predniSONE [PredniSONE] 5 mg PO 1800 02/28/18 [History] predniSONE [PredniSONE] 10 mg PO DAILY 02/28/18 [History] 3 Allergy/AdvReac Type Severity Reaction Status Date / Time No Known Allergies Allergy Verified 02/02/18 10:43 All Systems: The remainder of the systems were reviewed and are negative - Constitutional Constitutional: anorexia, chills, fatigue, fever(s), lethargy, weakness, no headache(s), no weight gain, no weight loss - EENT Nose, mouth and throat: dry mouth, no headache(s), no sore throat - Cardiovascular Cardiovascular: dyspnea, edema, lightheadedness, pedal edema, no chest pain - Respiratory Respiratory: dyspnea, no cough, no excessive phlegm production - Gastrointestinal Gastrointestinal: diarrhea, loose stools, nausea, no abdominal pain, no hematemesis, no hematochezia, no melena, no vomiting - Genitourinary Genitourinary: no dysuria, no urinary frequency - Musculoskeletal Musculoskeletal: weakness, no limited range of motion, no neck pain, no stiffness - Integumentary Integumentary: no erythema, no rash - Neurological Neurological: weakness, no headache(s), no numbness, no tingling - Endocrine Endocrine: fatigue, no palpitations, no polydipsia, no polyphagia Physical Examination Vital Signs: Vital Signs, Last 4 Hours Pulse Resp BP Pulse Ox 03/01/18 03:45 32 94 03/01/18 02:00 103 32 104/55 96 03/01/18 01:00 114 35 97/56 96 General appearance: alert, lethargic, appears uncomfortable (Mild distress) Eyes: nonicteric (EOMI) ENT: oropharynx dry Neck: supple, no JVD Effort: mildly labored (Tachypnea) Inspection: normal Auscultation: bilateral: diminished breath sounds (Bibasilar) Cardiovascular: regular rate and rhythm (Tachycardic) Gastrointestinal: normoactive bowel sounds, soft, non-tender, non-distended Integumentary: normal, other Extremities: no cyanosis, no clubbing, edema (2+ pedal edema, cold) Musculoskeletal: no deformities, ROM normal Gait: normal posture normal mental status, non-focal exam mood appropriate (Flat affect) Results - Laboratory Findings CBC and BMP: 03/01/18 05:35 02/28/18 11:31 ABG ABG pH 7.29 pH Units (7.32-7.45) L 02/28/18 22:53 ABG pCO2 27 mmHg (35-45) L 02/28/18 22:53 ABG pO2 63 mmHg (85-104) L 02/28/18 22:53 ABG O2 Saturation 90 % (95-98) L 02/28/18 22:53 PT/INR, D-dimer PT 14.2 Seconds (9.4-12.1) H 02/28/18 11:31 Abnormal lab findings: Abnormal lab results WBC 1.9 K/mcL (4.3-11.1) L 02/28/18 11:31 RBC 3.17 M/mcL (3.82-4.97) L 02/28/18 11:31 Hgb 8.9 g/dL (11.5-15.4) L 02/28/18 21:30 Hct 29.3 % (35.3-44.9) L 02/28/18 21:30 MCV 76.7 fL (83.0-100.0) L 02/28/18 11:31 MCH 24.6 pg (28.0-33.3) L 02/28/18 11:31 RDW 19.7 % (11.5-14.5) H 02/28/18 11:31 Plt Count 98 K/mcL (140-400) L 02/28/18 11:31 Neutrophils # 1.0 K/mcL (1.6-8.9) L 02/28/18 11:31 Lymphocytes # 0.4 K/mcL (0.6-4.6) L 02/28/18 11:31 Platelet Estimate Slight Decrease (Normal) L 02/28/18 11:31 Anisocytosis 1+ (Not Present) A 02/28/18 11:31 PT 14.2 Seconds (9.4-12.1) H 02/28/18 11:31 ABG pH 7.29 pH Units (7.32-7.45) L 02/28/18 22:53 ABG pCO2 27 mmHg (35-45) L 02/28/18 22:53 ABG pO2 63 mmHg (85-104) L 02/28/18 22:53 ABG HCO3 13 mEq/L (21-27) L 02/28/18 22:53 ABG Total CO2 14 mEq/L (20-26) L 02/28/18 22:53 ABG O2 Saturation 90 % (95-98) L 02/28/18 22:53 ABG Base Excess -12 mEq/L (-2 to 3) L 02/28/18 22:53 Potassium 3.1 mEq/L (3.5-5.1) L 02/28/18 11:31 Carbon Dioxide 22 mEq/L (23-29) L 02/28/18 11:31 BUN 37 mg/dL (6-20) H 02/28/18 11:31 Creatinine 3.73 mg/dL (0.60-1.20) H 02/28/18 11:31 Est GFR ( Amer) 15 (> 60) L 02/28/18 11:31 Est GFR (Non-Af Amer) 12 (> 60) L 02/28/18 11:31 POC Glucose 145 mg/dL (70-99) H 03/01/18 00:08 Lactic Acid 2.6 mmol/L (0.5-2.2) H 03/01/18 01:40 Calcium 7.6 mg/dL (8.6-10.3) L 02/28/18 11:31 Magnesium 1.5 mg/dL (1.6-2.6) L 02/28/18 11:31 Direct Bilirubin 0.3 mg/dL (0.0-0.2) H 02/28/18 11:31 AST 42 Units/L (13-39) H 02/28/18 11:31 Alkaline Phosphatase 312 Units/L (34-104) H 02/28/18 11:31 Troponin I 0.07 ng/mL (< 0.04) H* 03/01/18 02:15 Serum Total Protein 4.7 g/dL (6.4-8.9) L 02/28/18 11:31 Albumin 2.6 g/dL (3.5-5.7) L 02/28/18 11:31 Globulin 2.1 g/dL (2.4-3.5) L 02/28/18 11:31 Urine Clarity Cloudy (Clear) A 02/28/18 18:55 Ur Specific Fannin 1.009 (1.010-1.025) L 02/28/18 18:55 Urine Protein >=300 mg/dL (Neg-Trace) H 02/28/18 18:55 Urine Blood Trace (Negative) H 02/28/18 18:55 Urine Microscopic RBC 3-5 per hpf (0-3) H 02/28/18 18:55 Urine Microscopic WBC 5-15 per hpf (0-3) H 02/28/18 18:55 Ur Squamous Epith Cells Many per lpf (None-Few) H 02/28/18 18:55 Amorphous Sediment Many (Few) H 02/28/18 12:02 - Diagnostic Findings Chest x-ray: report reviewed, image reviewed Additional studies: EKG shows sinus tachycardia with no signs of ischemia. ITS Impressions Chest X-Ray 02/28/18 11:23 IMPRESSION: Small right lung base opacity is nonspecific but could represent pneumonia. Minimal nonspecific left lower lobe opacity. D/ / 02/28/2018 11:59:26 Kip Wolfe MD / deven Interpreting Provider: Kip Wolfe MD - Clinical Findings Intake & Output: Intake & Output 02/28/18 02/28/18 03/01/18 15:59 23:59 07:59 Intake Total 1487 / 1487 250 / 250 Output Total 200 / 200 50 / 50 Balance 1287 / 1287 200 / 200 Weight 77.8 kg Consult Discharge Plan - Plan Referrals: Leta Akins MD [Primary Care Provider] - Sepsis Reassessment Note - Evaluation Sepsis Screen: No Definite Risk Current Stage of Sepsis: septic shock Possible Source of Sepsis: GI tract/intra-abdominal - Focused Exam Date of Encounter: 03/01/18 Time of Encounter: 00:01 Vital Signs: Vital Signs Temp Pulse Resp BP Pulse Ox 03/01/18 06:00 99 26 87/36 97 03/01/18 05:00 102 26 93/38 97 03/01/18 04:00 101.5 F H 109 18 106/51 97 03/01/18 03:45 32 94 03/01/18 03:00 132 30 109/59 98 03/01/18 02:00 103 32 104/55 96 03/01/18 01:00 114 35 97/56 96 03/01/18 00:00 100.8 F H 113 34 130/86 98 02/28/18 23:00 125 38 111/50 94 02/28/18 22:45 139 42 118/82 93 02/28/18 22:35 28 92 02/28/18 22:30 143 40 116/44 93 02/28/18 22:00 135 28 111/92 91 02/28/18 21:50 120 39 73/36 92 02/28/18 21:35 125 31 84/56 92 02/28/18 21:27 100.0 F H 130 26 86/66 91 02/28/18 21:20 92/40 02/28/18 21:00 72/53 02/28/18 20:40 77/24 02/28/18 20:20 65/35 02/28/18 20:00 86 34 64/34 96 02/28/18 19:30 100.9 F H 96 36 78/43 100 Respiratory Exam: Present: respiratory distress (Mild), accessory muscle use, decreased breath sounds. Absent: diminished air movement Cardiovascular Exam: Present: tachycardia Capillary Refill: > 2 seconds Peripheral Pulse Strength: 2+ slightly diminished Peripheral Pulse Location: Radial Skin Exam: pale <Jarred Garza W - Last Filed: 03/01/18 09:06> Date of Encounter: 03/01/18 All Systems: The remainder of the systems were reviewed and are negative Physical Examination Vital Signs: Vital Signs, Last 4 Hours Temp Pulse Resp BP Pulse Ox 03/01/18 08:23 99 03/01/18 08:00 98 24 108/62 99 03/01/18 07:00 98.8 F 100 22 112/51 98 03/01/18 06:00 99 26 87/36 97 Results - Laboratory Findings CBC and BMP: 03/01/18 05:35 03/01/18 05:35 ABG ABG pH 7.29 pH Units (7.32-7.45) L 02/28/18 22:53 ABG pCO2 27 mmHg (35-45) L 02/28/18 22:53 ABG pO2 63 mmHg (85-104) L 02/28/18 22:53 ABG O2 Saturation 90 % (95-98) L 02/28/18 22:53 PT/INR, D-dimer PT 14.2 Seconds (9.4-12.1) H 02/28/18 11:31 Abnormal lab findings: Abnormal lab results WBC 1.9 K/mcL (4.3-11.1) L 03/01/18 05:35 RBC 2.88 M/mcL (3.82-4.97) L 03/01/18 05:35 Hgb 7.1 g/dL (11.5-15.4) L D 03/01/18 05:35 Hct 22.3 % (35.3-44.9) L 03/01/18 05:35 MCV 77.4 fL (83.0-100.0) L 03/01/18 05:35 MCH 24.7 pg (28.0-33.3) L 03/01/18 05:35 RDW 19.7 % (11.5-14.5) H 03/01/18 05:35 Plt Count 93 K/mcL (140-400) L 03/01/18 05:35 Band Neutrophils % 18.0 % (0-4) H 03/01/18 05:35 Myelocytes % 2.0 % (0) H 03/01/18 05:35 Neutrophils # 1.3 K/mcL (1.6-8.9) L 03/01/18 05:35 Lymphocytes # 0.3 K/mcL (0.6-4.6) L 03/01/18 05:35 Platelet Estimate Decreased (Normal) L 03/01/18 05:35 Hypochromasia Present (Not Present) A 03/01/18 05:35 Anisocytosis 1+ (Not Present) A 02/28/18 11:31 PT 14.2 Seconds (9.4-12.1) H 02/28/18 11:31 ABG pH 7.29 pH Units (7.32-7.45) L 02/28/18 22:53 ABG pCO2 27 mmHg (35-45) L 02/28/18 22:53 ABG pO2 63 mmHg (85-104) L 02/28/18 22:53 ABG HCO3 13 mEq/L (21-27) L 02/28/18 22:53 ABG Total CO2 14 mEq/L (20-26) L 02/28/18 22:53 ABG O2 Saturation 90 % (95-98) L 02/28/18 22:53 ABG Base Excess -12 mEq/L (-2 to 3) L 02/28/18 22:53 Chloride 113 mEq/L (98-107) H 03/01/18 05:35 Carbon Dioxide 12 mEq/L (23-29) L 03/01/18 05:35 BUN 45 mg/dL (6-20) H 03/01/18 05:35 Creatinine 4.29 mg/dL (0.60-1.20) H 03/01/18 05:35 Est GFR ( Amer) 13 (> 60) L 03/01/18 05:35 Est GFR (Non-Af Amer) 11 (> 60) L 03/01/18 05:35 Glucose 263 mg/dL (70-105) H 03/01/18 05:35 POC Glucose 236 mg/dL (70-99) H 03/01/18 07:52 Calculated Osmolality 307 (280-300) H 03/01/18 05:35 Calcium 5.9 mg/dL (8.6-10.3) L* 03/01/18 05:35 Total Bilirubin 1.6 mg/dL (0.3-1.0) H 03/01/18 05:35 Direct Bilirubin 1.2 mg/dL (0.0-0.2) H 03/01/18 05:35 AST 141 Units/L (13-39) H 03/01/18 05:35 Alkaline Phosphatase 286 Units/L (34-104) H 03/01/18 05:35 Troponin I 0.07 ng/mL (< 0.04) H* 03/01/18 05:35 Serum Total Protein 3.5 g/dL (6.4-8.9) L 03/01/18 05:35 Albumin 1.9 g/dL (3.5-5.7) L 03/01/18 05:35 Globulin 1.6 g/dL (2.4-3.5) L 03/01/18 05:35 Urine Clarity Cloudy (Clear) A 02/28/18 18:55 Ur Specific Fannin 1.009 (1.010-1.025) L 02/28/18 18:55 Urine Protein >=300 mg/dL (Neg-Trace) H 02/28/18 18:55 Urine Blood Trace (Negative) H 02/28/18 18:55 Urine Microscopic RBC 3-5 per hpf (0-3) H 02/28/18 18:55 Urine Microscopic WBC 5-15 per hpf (0-3) H 02/28/18 18:55 Ur Squamous Epith Cells Many per lpf (None-Few) H 02/28/18 18:55 Amorphous Sediment Many (Few) H 02/28/18 12:02 - Clinical Findings Intake & Output: Intake & Output 02/28/18 03/01/1818 23:59 07:59 15:59 Intake Total 1487 / 1487 1389 / 1389 65 / 65 Output Total 200 / 200 125 / 125 50 / 50 Balance 1287 / 1287 1264 / 1264 15 Weight 77.8 kg 81.7 kg - Attending Attestation I examined this patient and my medical decision-making was reviewed with the Resident Physician. I agree with the documented findings, disposition and treatment plan as described except to the extent set forth below. We independently had [id number] contact with the patient Patient seen and examined at bedside Labs, radiology, chart personally reviewed. Management was reviewed during multidisciplinary critical care rounds. NEWSPAPER STUFFER: Patient fully awake and alert no evidence of meningismus Pulm: Acute respiratory failure however overnight patient has done well on nasal cannula O2 now this morning with Acceptable oxygenation; possibility of underlying pneumonia cannot be excluded I do suspect component of hydrostatic pulmonary edema Cards: Distributive shock secondary to sepsis improving vasopressor being weaned down she has had volume resuscitation. By infusion of crystalloid at this time GI: GI panel negative for infectious process Nutrition: Nothing by mouth for now Renal: Acute on chronic kidney injury although no acute need for dialysis I suspect that this will likely manifest over the next 24-48 hours continue UOP Monitored, Cont to Trend sCr and monitor Electrolytes. ID: Patient presented with septic shock of unclear etiology possibly pneumonia versus intra-abdominal source CT abdomen and pelvis pending Heme/Onc: She has pancytopenia likely a manifestation of immunotherapy for treatment of melanoma continue mechanical DVT prophylaxis Endo: Glucose Monitored she is been receiving steroids and so will give her stress dose steroids to accommodate critical illness Integ/MSK: Skin Care per routine ICU Nursing Protocol to prevent ulcers. Lines: All lines examined without evidence of infection : Dispo: Patient is requested to be transferred back to [facility] and we have reached out to that facility pending acceptance CODE: Full code Sepsis Reassessment Note - Focused Exam Vital Signs: Vital Signs Temp Pulse Resp BP Pulse Ox 03/01/18 08:23 99 03/01/18 08:00 98 24 108/62 99 03/01/18 07:00 98.8 F 100 22 112/51 98 03/01/18 06:00 99 26 87/36 97 03/01/18 05:00 102 26 93/38 97 03/01/18 04:00 101.5 F H 109 18 106/51 97 03/01/18 03:45 32 94 03/01/18 03:00 132 30 109/59 98 03/01/18 02:00 103 32 104/55 96 03/01/18 01:00 114 35 97/56 96 03/01/18 00:00 100.8 F H 113 34 130/86 98 02/28/18 23:00 125 38 111/50 94 02/28/18 22:45 139 42 118/82 93 02/28/18 22:35 28 92 02/28/18 22:30 143 40 116/44 93 02/28/18 22:00 135 28 111/92 91 02/28/18 21:50 120 39 73/36 92 02/28/18 21:35 125 31 84/56 92 02/28/18 21:27 100.0 F H 130 26 86/66 91 02/28/18 21:20 92/40
[2018-03-01] MEDS ORDERED: 0.9 % Sodium Chloride 1,000 ML IVC SCH ×2 (04:41→05:26)
[2018-03-01] MEDS: Insulin LISPRO 300 UNITS/3 ML VIAL SQ SCH ×2 (05:27→08:29)
[2018-03-01 05:53] LABS: Hematocrit 22.3 % (35.3-44.9); Hemoglobin 7.1 g/dL (11.5-15.4); Mean Corpuscular HGB Conc 31.8 g/dL (31.6-35.5); Mean Corpuscular Hemoglobin 24.7 pg (28.0-33.3); Mean Corpuscular Volume 77.4 fL (83.0-100.0); Red Blood Count 2.88 M/mcL (3.82-4.97); Red Cell Distribution Width 19.7 % (11.5-14.5)
[2018-03-01 05:55] LABS: Platelet Count 93 K/mcL (140-400)
[2018-03-01] MEDS ORDERED: Hydrocortisone Sodium Succ 100 MG/2 ML VIAL IVP SCH (06:00)
[2018-03-01 06:21] LABS: Eosinophils # 0.2 K/mcL (0.0-0.6); Lymphocytes # 0.3 K/mcL (0.6-4.6); Monocytes # 0.1 K/mcL (0.0-1.3); Neutrophils # 1.3 K/mcL (1.6-8.9); Platelet Estimate Decreased (Normal)
[2018-03-01 06:22] LABS: Hypochromasia Present (Not Present)
[2018-03-01 06:56] LABS: Albumin 1.9 g/dL (3.5-5.7); Albumin/Globulin Ratio 1.2 (1.1-2.2); Bilirubin,Direct 1.2 mg/dL (0.0-0.2); Bilirubin,Total 1.6 mg/dL (0.3-1.0); Globulin 1.6 g/dL (2.4-3.5); Magnesium 1.6 mg/dL (1.6-2.6); Potassium 4.1 mEq/L (3.5-5.1); Total Protein 3.5 g/dL (6.4-8.9)
[2018-03-01 07:31] LABS: Adenovirus Not Detected (Not Detect); Bordetella Pertussis Not Detected (Not Detect); Chlamydophila pneumoniae Not Detected (Not Detect); Coronavirus 229E Not Detected (Not Detect); Coronavirus HKU1 Not Detected (Not Detect); Coronavirus NL63 Not Detected (Not Detect); Coronavirus OC43 Not Detected (Not Detect); Human Metapneumovirus Not Detected (Not Detect); Human Rhinovirus/Enterovirus Not Detected (Not Detect); Influenza A Subtype 2009 H1 Not Detected (Not Detect); Influenza A Untypeable Not Detected (Not Detect); Influenza B Not Detected (Not Detect); Mycoplasma pneumoniae Not Detected (Not Detect); Parainfluenza Virus 1 Not Detected (Not Detect); Parainfluenza Virus 2 Not Detected (Not Detect); Parainfluenza Virus 3 Not Detected (Not Detect); Parainfluenza Virus 4 Not Detected (Not Detect); Respiratory Syncytial Virus Not Detected (Not Detect)
[2018-03-01 08:09] LABS: Calcium 5.9 mg/dL (8.6-10.3)
[2018-03-01] MEDS ORDERED: predniSONE 10 MG TABLET PO SCH (09:00)
[2018-03-01] MEDS ORDERED: amLODIPine 5 MG TABLET PO SCH (09:00)
[2018-03-01] MEDS ORDERED: Cholecalciferol (D-3) 1,000 UNIT TABLET PO SCH (09:00)
[2018-03-01] MEDS: Budesonide/Formoterol 160/4.5 1 PUFF INH IH SCH (09:51)
[2018-03-01 10:13] VITALS: BP 106/60
[2018-03-01] MEDS ORDERED: Aminoglycoside Consult 1 EACH MC ONE (10:29)
--- NOTE | 2018-03-01 11:40 | Discharge Summary ---
<Jumana Jasmine - Last Filed: 03/01/18 11:30> Orders not resulted at time of discharge: Pending orders 02/28/18 21:13 Culture,Sputum with Gram Stain [RM] Stat 03/01/18 05:59 Legionella Antigen [RM] Routine Streptococcal pneumoniae urin antigen [S. Pneumoniae Antigen] [RM] Routine 03/01/18 08:31 Ionized Calcium,venous blood Stat 03/01/18 11:30 Troponin I Routine Date of Encounter: 03/01/18 Time of Encounter: 08:00 - Discharge Diagnosis (1) Septic shock Priority: Primary Status: Acute (2) Hypomagnesemia Priority: Secondary Status: Acute (3) Fever Priority: Primary Status: Acute Qualifiers: Fever type: unspecified Qualified Code(s): R50.9 - Fever, unspecified (4) Malignant melanoma Priority: Secondary Status: Chronic Qualifiers: Melanoma location: unspecified site Qualified Code(s): C43.9 - Malignant melanoma of skin, unspecified (5) Diabetes mellitus Priority: Secondary Status: Chronic Qualifiers: Diabetes mellitus type: type 2 Diabetes mellitus senior living insulin use: without termination clerk use Diabetes mellitus complication status: without complication Qualified Code(s): E11.9 - Type 2 diabetes mellitus without complications (6) Pancytopenia Priority: Secondary Status: Chronic (7) DINAH (acute kidney injury) Priority: Secondary Status: Acute (8) Immunosuppression Priority: Secondary Status: Chronic (9) Elevated troponin Priority: Secondary Status: Acute (10) Enteritis Priority: Secondary Status: Acute (11) Hypokalemia Priority: Secondary Status: Acute (12) Malnutrition Priority: Secondary Status: Chronic Qualifiers: Malnutrition type: protein-calorie malnutrition Protein-calorie malnutrition severity: moderate Qualified Code(s): E44.0 - Moderate protein- calorie malnutrition (13) Acute respiratory failure with hypoxia Priority: Primary Status: Acute (14) Healthcare-associated pneumonia Priority: Primary Status: Acute (15) COPD (chronic obstructive pulmonary disease) Priority: Secondary Status: Chronic Qualifiers: COPD type: unspecified COPD Qualified Code(s): J44.9 - Chronic obstructive pulmonary disease, unspecified - Discharge Medications Home Medications: Ipilimumab [Yervoy] 3 mg IV Q3W 02/02/18 [History] Acetaminophen [Tylenol] 325 mg PO Q4H PRN 02/28/18 [History] Albuterol Sulfate [Ventolin Hfa] 1 puff IH Q4H PRN 02/28/18 [History] Budesonide/Formoterol 160/4.5 [Symbicort 160/4.5] 2 puff IH BIDR 02/28/18 [ History] Calcium Carbonate/Vitamin D3 [Calcium 500 + Vit D Caplet] 1 tab PO DAILY [History] Citalopram [CeleXA] 20 mg PO DAILY 02/28/18 [History] Ferrous Sulfate [Iron] 325 mg PO TID 02/28/18 [History] Na Phos,M-B/Na Phos,Di-Ba [Fleet Enema Extra] 230 ml RC Q48H PRN 02/28/18 [ History] Omeprazole [PriLOSEC] 20 mg PO DAILY 02/28/18 [History] Ondansetron [Zofran] 8 mg PO Q8HR PRN 02/28/18 [History] Triamcinolone Acet 0.1% CRM [Kenalog] 1 appl TP BID 02/28/18 [History] amLODIPine [Norvasc] 5 mg PO DAILY 02/28/18 [History] metFORMIN [Glucophage] 500 mg PO BIDWM 02/28/18 [History] predniSONE [PredniSONE] 5 mg PO 1800 02/28/18 [History] predniSONE [PredniSONE] 10 mg PO DAILY 02/28/18 [History] Allergies/Adverse Reactions: 3 Allergy/AdvReac Type Severity Reaction Status Date / Time No Known Allergies Allergy Verified 02/02/18 10:43 Labs on day of discharge: Labs from last 24 hours 03/01/18 03/01/18 03/01/18 07:52 06:26 05:35 WBC RBC Hgb Hct MCV MCH MCHC RDW Plt Count MPV Seg Neutrophils % Band Neutrophils % Lymphocytes % Monocytes % Eosinophils % Myelocytes % Neutrophils # Lymphocytes # Monocytes # Eosinophils # Platelet Estimate Immature Plt Fraction Hypochromasia ABG pH ABG pCO2 ABG pO2 ABG HCO3 ABG Total CO2 ABG O2 Saturation ABG Base Excess O2 Delivery Device Inspired O2 Sodium Potassium Chloride Carbon Dioxide BUN Creatinine Est GFR ( Amer) Est GFR (Non-Af Amer) BUN/Creatinine Ratio Glucose POC Glucose 236 H Calculated Osmolality Lactic Acid 2.1 Calcium Phosphorus Magnesium Total Bilirubin Direct Bilirubin AST ALT Alkaline Phosphatase Troponin I Serum Total Protein Albumin Globulin Albumin/Globulin Ratio Lipase Urine Color Urine Clarity Urine pH Ur Specific [place] Urine Protein Urine Glucose (UA) Urine Ketones Urine Blood Urine Nitrite Urine Bilirubin Urine Urobilinogen Ur Leukocyte Esterase Urine Microscopic RBC Urine Microscopic WBC Ur Squamous Epith Cells Urine Bacteria Hyaline Casts Ur Culture Indicated? Stl C. cayetanensis PCR Stool Rotavirus A PCR Stl Adenov F 40/41 PCR Stool Astrovirus (PCR) Stool Campylobacter PCR Stl C. diff Tox A/B PCR Stool Cryptosporidium PCR Stl Sh Tox Pr E STEC PCR Stool E coli O157 PCR Stl Enterotoxigenic E PCR Stool EPEC (PCR) Stool EAEC (PCR) Stl E. histolytica PCR Stool Giardia Lamblia PCR Stool Salmonella PCR Stool Sapovirus (PCR) Stl P. shigelloides PCR Stl Shigella/EIEC PCR St Y.enterocolitica PCR Stool Vibrio (PCR) Stl Vibrio cholerae PCR Stl Norovirus GI/GII PCR Stl GI Panel (PCR) Com Random Vancomycin Chlamy pneumoniae PCR Not Detected Adenovirus (PCR) Not Detected B. pertussis DNA (PCR) Not Detected B.parapertussis DNA PCR Not Detected Coronavirus OC43 (PCR) Not Detected Coronavirus HKU1 (PCR) Not Detected Coronavirus 229E (PCR) Not Detected Coronavirus NL63 (PCR) Not Detected Human Metapneumovir PCR Not Detected Influenza A (H1) PCR Not Detected Influ A (H1N1/09) PCR Not Detected Influenza A (H3) PCR Not Detected Influenza A Untype (PCR) Not Detected Influenza Type B (PCR) Not Detected M.pneumoniae DNA (PCR) Not Detected Parainfluenza 1 (PCR) Not Detected Parainfluenza 2 (PCR) Not Detected Parainfluenza 3 (PCR) Not Detected Parainfluenza 4 (PCR) Not Detected RSV (PCR) Not Detected Entero/Rhino (PCR) Not Detected Specimen Rejected Blood Type Antibody Screen 03/01/18 03/01/18 03/01/18 05:35 05:35 05:35 WBC RBC Hgb Hct MCV MCH MCHC RDW Plt Count MPV Seg Neutrophils % Band Neutrophils % Lymphocytes % Monocytes % Eosinophils % Myelocytes % Neutrophils # Lymphocytes # Monocytes # Eosinophils # Platelet Estimate Immature Plt Fraction Hypochromasia ABG pH ABG pCO2 ABG pO2 ABG HCO3 ABG Total CO2 ABG O2 Saturation ABG Base Excess O2 Delivery Device Inspired O2 Sodium 138 Potassium 4.1 D Chloride 113 H Carbon Dioxide 12 L BUN 45 H Creatinine 4.29 H Est GFR ( Amer) 13 L Est GFR (Non-Af Amer) 11 L BUN/Creatinine Ratio 10 Glucose 263 H POC Glucose Calculated Osmolality 307 H Lactic Acid Calcium 5.9 L* Phosphorus 4.0 Magnesium 1.6 Total Bilirubin 1.6 H Direct Bilirubin 1.2 H AST 141 H ALT 42 Alkaline Phosphatase 286 H Troponin I 0.07 H* Serum Total Protein 3.5 L Albumin 1.9 L Globulin 1.6 L Albumin/Globulin Ratio 1.2 Lipase 51 Urine Color Urine Clarity Urine pH Ur Specific [place] Urine Protein Urine Glucose (UA) Urine Ketones Urine Blood Urine Nitrite Urine Bilirubin Urine Urobilinogen Ur Leukocyte Esterase Urine Microscopic RBC Urine Microscopic WBC Ur Squamous Epith Cells Urine Bacteria Hyaline Casts Ur Culture Indicated? Stl C. cayetanensis PCR Stool Rotavirus A PCR Stl Adenov F 40/41 PCR Stool Astrovirus (PCR) Stool Campylobacter PCR Stl C. diff Tox A/B PCR Stool Cryptosporidium PCR Stl Sh Tox Pr E STEC PCR Stool E coli O157 PCR Stl Enterotoxigenic E PCR Stool EPEC (PCR) Stool EAEC (PCR) Stl E. histolytica PCR Stool Giardia Lamblia PCR Stool Salmonella PCR Stool Sapovirus (PCR) Stl P. shigelloides PCR Stl Shigella/EIEC PCR St Y.enterocolitica PCR Stool Vibrio (PCR) Stl Vibrio cholerae PCR Stl Norovirus GI/GII PCR Stl GI Panel (PCR) Com Random Vancomycin 24 Chlamy pneumoniae PCR Adenovirus (PCR) B. pertussis DNA (PCR) B.parapertussis DNA PCR Coronavirus OC43 (PCR) Coronavirus HKU1 (PCR) Coronavirus 229E (PCR) Coronavirus NL63 (PCR) Human Metapneumovir PCR Influenza A (H1) PCR Influ A (H1N1/09) PCR Influenza A (H3) PCR Influenza A Untype (PCR) Influenza Type B (PCR) M.pneumoniae DNA (PCR) Parainfluenza 1 (PCR) Parainfluenza 2 (PCR) Parainfluenza 3 (PCR) Parainfluenza 4 (PCR) RSV (PCR) Entero/Rhino (PCR) Specimen Rejected Blood Type Antibody Screen 03/01/18 03/01/18 03/01/18 05:35 04:24 02:15 WBC 1.9 L RBC 2.88 L Hgb 7.1 L D Hct 22.3 L MCV 77.4 L MCH 24.7 L MCHC 31.8 RDW 19.7 H Plt Count 93 L MPV 11.0 Seg Neutrophils % 52.0 Band Neutrophils % 18.0 H Lymphocytes % 14.0 Monocytes % 6.0 Eosinophils % 8.0 Myelocytes % 2.0 H Neutrophils # 1.3 L Lymphocytes # 0.3 L Monocytes # 0.1 Eosinophils # 0.2 Platelet Estimate Decreased L Immature Plt Fraction 5.0 Hypochromasia Present A ABG pH ABG pCO2 ABG pO2 ABG HCO3 ABG Total CO2 ABG O2 Saturation ABG Base Excess O2 Delivery Device Inspired O2 Sodium Potassium Chloride Carbon Dioxide BUN Creatinine Est GFR ( Amer) Est GFR (Non-Af Amer) BUN/Creatinine Ratio Glucose POC Glucose 226 H Calculated Osmolality Lactic Acid Calcium Phosphorus Magnesium Total Bilirubin Direct Bilirubin AST ALT Alkaline Phosphatase Troponin I 0.07 H* Serum Total Protein Albumin Globulin Albumin/Globulin Ratio Lipase Urine Color Urine Clarity Urine pH Ur Specific [place] Urine Protein Urine Glucose (UA) Urine Ketones Urine Blood Urine Nitrite Urine Bilirubin Urine Urobilinogen Ur Leukocyte Esterase Urine Microscopic RBC Urine Microscopic WBC Ur Squamous Epith Cells Urine Bacteria Hyaline Casts Ur Culture Indicated? Stl C. cayetanensis PCR Stool Rotavirus A PCR Stl Adenov F 40/41 PCR Stool Astrovirus (PCR) Stool Campylobacter PCR Stl C. diff Tox A/B PCR Stool Cryptosporidium PCR Stl Sh Tox Pr E STEC PCR Stool E coli O157 PCR Stl Enterotoxigenic E PCR Stool EPEC (PCR) Stool EAEC (PCR) Stl E. histolytica PCR Stool Giardia Lamblia PCR Stool Salmonella PCR Stool Sapovirus (PCR) Stl P. shigelloides PCR Stl Shigella/EIEC PCR St Y.enterocolitica PCR Stool Vibrio (PCR) Stl Vibrio cholerae PCR Stl Norovirus GI/GII PCR Stl GI Panel (PCR) Com Random Vancomycin Chlamy pneumoniae PCR Adenovirus (PCR) B. pertussis DNA (PCR) B.parapertussis DNA PCR Coronavirus OC43 (PCR) Coronavirus HKU1 (PCR) Coronavirus 229E (PCR) Coronavirus NL63 (PCR) Human Metapneumovir PCR Influenza A (H1) PCR Influ A (H1N1) PCR Influenza A (H3) PCR Influenza A Untype (PCR) Influenza Type B (PCR) M.pneumoniae DNA (PCR) Parainfluenza 1 (PCR) Parainfluenza 2 (PCR) Parainfluenza 3 (PCR) Parainfluenza 4 (PCR) RSV (PCR) Entero/Rhino (PCR) Specimen Rejected Blood Type Antibody Screen 03/01/18 03/01/18 03/01/18 01:40 00:15 00:08 WBC RBC Hgb Hct MCV MCH MCHC RDW Plt Count MPV Seg Neutrophils % Band Neutrophils % Lymphocytes % Monocytes % Eosinophils % Myelocytes % Neutrophils # Lymphocytes # Monocytes # Eosinophils # Platelet Estimate Immature Plt Fraction Hypochromasia ABG pH ABG pCO2 ABG pO2 ABG HCO3 ABG Total CO2 ABG O2 Saturation ABG Base Excess O2 Delivery Device Inspired O2 Sodium Potassium Chloride Carbon Dioxide BUN Creatinine Est GFR ( Amer) Est GFR (Non-Af Amer) BUN/Creatinine Ratio Glucose POC Glucose 145 H Calculated Osmolality Lactic Acid 2.6 H Calcium Phosphorus Magnesium Total Bilirubin Direct Bilirubin AST ALT Alkaline Phosphatase Troponin I Serum Total Protein Albumin Globulin Albumin/Globulin Ratio Lipase Urine Color Urine Clarity Urine pH Ur Specific [place] Urine Protein Urine Glucose (UA) Urine Ketones Urine Blood Urine Nitrite Urine Bilirubin Urine Urobilinogen Ur Leukocyte Esterase Urine Microscopic RBC Urine Microscopic WBC Ur Squamous Epith Cells Urine Bacteria Hyaline Casts Ur Culture Indicated? Stl C. cayetanensis PCR Not detected Stool Rotavirus A PCR Not detected Stl Adenov F 40/41 PCR Not detected Stool Astrovirus (PCR) Not detected Stool Campylobacter PCR Not detected Stl C. diff Tox A/B PCR Not detected Stool Cryptosporidium PCR Not detected Stl Sh Tox Pr E STEC PCR Not detected Stool E coli O157 PCR Not detected Stl Enterotoxigenic E PCR Not detected Stool EPEC (PCR) Not detected Stool EAEC (PCR) Not detected Stl E. histolytica PCR Not detected Stool Giardia Lamblia PCR Not detected Stool Salmonella PCR Not detected Stool Sapovirus (PCR) Not detected Stl P. shigelloides PCR Not detected Stl Shigella/EIEC PCR Not detected St Y.enterocolitica PCR Not detected Stool Vibrio (PCR) Not detected Stl Vibrio cholerae PCR Not detected Stl Norovirus GI/GII PCR Not detected Stl GI Panel (PCR) Com See below Random Vancomycin Chlamy pneumoniae PCR Adenovirus (PCR) B. pertussis DNA (PCR) B.parapertussis DNA PCR Coronavirus OC43 (PCR) Coronavirus HKU1 (PCR) Coronavirus 229E (PCR) Coronavirus NL63 (PCR) Human Metapneumovir PCR Influenza A (H1) PCR Influ A (H1N1/) PCR Influenza A (H3) PCR Influenza A Untype (PCR) Influenza Type B (PCR) M.pneumoniae DNA (PCR) Parainfluenza 1 (PCR) Parainfluenza 2 (PCR) Parainfluenza 3 (PCR) Parainfluenza 4 (PCR) RSV (PCR) Entero/Rhino (PCR) Specimen Rejected Blood Type Antibody Screen 02/28/18 02/28/18 02/28/18 22:53 21:53 21:53 WBC RBC Hgb Hct MCV MCH MCHC RDW Plt Count MPV Seg Neutrophils % Band Neutrophils % Lymphocytes % Monocytes % Eosinophils % Myelocytes % Neutrophils # Lymphocytes # Monocytes # Eosinophils # Platelet Estimate Immature Plt Fraction Hypochromasia ABG pH 7.29 L ABG pCO2 27 L ABG pO2 63 L ABG HCO3 13 L ABG Total CO2 14 L ABG O2 Saturation 90 L ABG Base Excess -12 L O2 Delivery Device Cannula Inspired O2 6.0 Sodium Potassium Chloride Carbon Dioxide BUN Creatinine Est GFR ( Amer) Est GFR (Non-Af Amer) BUN/Creatinine Ratio Glucose POC Glucose Calculated Osmolality Lactic Acid 3.9 H Calcium Phosphorus Magnesium Total Bilirubin Direct Bilirubin AST ALT Alkaline Phosphatase Troponin I Serum Total Protein Albumin Globulin Albumin/Globulin Ratio Lipase Urine Color Urine Clarity Urine pH Ur Specific [place] Urine Protein Urine Glucose (UA) Urine Ketones Urine Blood Urine Nitrite Urine Bilirubin Urine Urobilinogen Ur Leukocyte Esterase Urine Microscopic RBC Urine Microscopic WBC Ur Squamous Epith Cells Urine Bacteria Hyaline Casts Ur Culture Indicated? Stl C. cayetanensis PCR Stool Rotavirus A PCR Stl Adenov F 40/41 PCR Stool Astrovirus (PCR) Stool Campylobacter PCR Stl C. diff Tox A/B PCR Stool Cryptosporidium PCR Stl Sh Tox Pr E STEC PCR Stool E coli O157 PCR Stl Enterotoxigenic E PCR Stool EPEC (PCR) Stool EAEC (PCR) Stl E. histolytica PCR Stool Giardia Lamblia PCR Stool Salmonella PCR Stool Sapovirus (PCR) Stl P. shigelloides PCR Stl Shigella/EIEC PCR St Y.enterocolitica PCR Stool Vibrio (PCR) Stl Vibrio cholerae PCR Stl Norovirus GI/GII PCR Stl GI Panel (PCR) Com Random Vancomycin Chlamy pneumoniae PCR Adenovirus (PCR) B. pertussis DNA (PCR) B.parapertussis DNA PCR Coronavirus OC43 (PCR) Coronavirus HKU1 (PCR) Coronavirus 229E (PCR) Coronavirus NL63 (PCR) Human Metapneumovir PCR Influenza A (H1) PCR Influ A (H1N1/09) PCR Influenza A (H3) PCR Influenza A Untype (PCR) Influenza Type B (PCR) M.pneumoniae DNA (PCR) Parainfluenza 1 (PCR) Parainfluenza 2 (PCR) Parainfluenza 3 (PCR) Parainfluenza 4 (PCR) RSV (PCR) Entero/Rhino (PCR) Specimen Rejected Blood Type O POSITIVE Antibody Screen NEGATIVE 02/28/18 02/28/18 02/28/18 21:33 21:30 20:08 WBC RBC Hgb 8.9 L Hct 29.3 L MCV MCH MCHC RDW Plt Count MPV Seg Neutrophils % Band Neutrophils % Lymphocytes % Monocytes % Eosinophils % Myelocytes % Neutrophils # Lymphocytes # Monocytes # Eosinophils # Platelet Estimate Immature Plt Fraction Hypochromasia ABG pH ABG pCO2 ABG pO2 ABG HCO3 ABG Total CO2 ABG O2 Saturation ABG Base Excess O2 Delivery Device Inspired O2 Sodium Potassium Chloride Carbon Dioxide BUN Creatinine Est GFR ( Amer) Est GFR (Non-Af Amer) BUN/Creatinine Ratio Glucose POC Glucose 72 86 Calculated Osmolality Lactic Acid Calcium Phosphorus Magnesium Total Bilirubin Direct Bilirubin AST ALT Alkaline Phosphatase Troponin I Serum Total Protein Albumin Globulin Albumin/Globulin Ratio Lipase Urine Color Urine Clarity Urine pH Ur Specific [place] Urine Protein Urine Glucose (UA) Urine Ketones Urine Blood Urine Nitrite Urine Bilirubin Urine Urobilinogen Ur Leukocyte Esterase Urine Microscopic RBC Urine Microscopic WBC Ur Squamous Epith Cells Urine Bacteria Hyaline Casts Ur Culture Indicated? Stl C. cayetanensis PCR Stool Rotavirus A PCR Stl Adenov F 40/41 PCR Stool Astrovirus (PCR) Stool Campylobacter PCR Stl C. diff Tox A/B PCR Stool Cryptosporidium PCR Stl Sh Tox Pr E STEC PCR Stool E coli O157 PCR Stl Enterotoxigenic E PCR Stool EPEC (PCR) Stool EAEC (PCR) Stl E. histolytica PCR Stool Giardia Lamblia PCR Stool Salmonella PCR Stool Sapovirus (PCR) Stl P. shigelloides PCR Stl Shigella/EIEC PCR St Y.enterocolitica PCR Stool Vibrio (PCR) Stl Vibrio cholerae PCR Stl Norovirus GI/GII PCR Stl GI Panel (PCR) Com Random Vancomycin Chlamy pneumoniae PCR Adenovirus (PCR) B. pertussis DNA (PCR) B.parapertussis DNA PCR Coronavirus OC43 (PCR) Coronavirus HKU1 (PCR) Coronavirus 229E (PCR) Coronavirus NL63 (PCR) Human Metapneumovir PCR Influenza A (H1) PCR Influ A (H1N1/09) PCR Influenza A (H3) PCR Influenza A Untype (PCR) Influenza Type B (PCR) M.pneumoniae DNA (PCR) Parainfluenza 1 (PCR) Parainfluenza 2 (PCR) Parainfluenza 3 (PCR) Parainfluenza 4 (PCR) RSV (PCR) Entero/Rhino (PCR) Specimen Rejected Blood Type Antibody Screen 02/28/18 02/28/18 02/28/18 19:36 19:00 18:55 WBC RBC Hgb Hct MCV MCH MCHC RDW Plt Count MPV Seg Neutrophils % Band Neutrophils % Lymphocytes % Monocytes % Eosinophils % Myelocytes % Neutrophils # Lymphocytes # Monocytes # Eosinophils # Platelet Estimate Immature Plt Fraction Hypochromasia ABG pH ABG pCO2 ABG pO2 ABG HCO3 ABG Total CO2 ABG O2 Saturation ABG Base Excess O2 Delivery Device Inspired O2 Sodium Potassium Chloride Carbon Dioxide BUN Creatinine Est GFR ( Amer) Est GFR (Non-Af Amer) BUN/Creatinine Ratio Glucose POC Glucose 63 L Calculated Osmolality Lactic Acid Calcium Phosphorus Magnesium Total Bilirubin Direct Bilirubin AST ALT Alkaline Phosphatase Troponin I Serum Total Protein Albumin Globulin Albumin/Globulin Ratio Lipase Urine Color Yellow Urine Clarity Cloudy A Urine pH 7.0 Ur Specific [place] 1.009 L Urine Protein >=300 H Urine Glucose (UA) Normal Urine Ketones Negative Urine Blood Trace H Urine Nitrite Negative Urine Bilirubin Negative Urine Urobilinogen Normal Ur Leukocyte Esterase Negative Urine Microscopic RBC 3-5 H Urine Microscopic WBC 5-15 H Ur Squamous Epith Cells Many H Urine Bacteria None Seen Hyaline Casts Few Ur Culture Indicated? NO Stl C. cayetanensis PCR Stool Rotavirus A PCR Stl Adenov F 40/41 PCR Stool Astrovirus (PCR) Stool Campylobacter PCR Stl C. diff Tox A/B PCR Stool Cryptosporidium PCR Stl Sh Tox Pr E STEC PCR Stool E coli O157 PCR Stl Enterotoxigenic E PCR Stool EPEC (PCR) Stool EAEC (PCR) Stl E. histolytica PCR Stool Giardia Lamblia PCR Stool Salmonella PCR Stool Sapovirus (PCR) Stl P. shigelloides PCR Stl Shigella/EIEC PCR St Y.enterocolitica PCR Stool Vibrio (PCR) Stl Vibrio cholerae PCR Stl Norovirus GI/GII PCR Stl GI Panel (PCR) Com Random Vancomycin Chlamy pneumoniae PCR Adenovirus (PCR) B. pertussis DNA (PCR) B.parapertussis DNA PCR Coronavirus OC43 (PCR) Coronavirus HKU1 (PCR) Coronavirus 229E (PCR) Coronavirus NL63 (PCR) Human Metapneumovir PCR Influenza A (H1) PCR Influ A (H1N1) PCR Influenza A (H3) PCR Influenza A Untype (PCR) Influenza Type B (PCR) M.pneumoniae DNA (PCR) Parainfluenza 1 (PCR) Parainfluenza 2 (PCR) Parainfluenza 3 (PCR) Parainfluenza 4 (PCR) RSV (PCR) Entero/Rhino (PCR) Specimen Rejected Not Liquid Blood Type Antibody Screen 02/28/18 02/28/18 17:43 15:11 WBC RBC Hgb Hct MCV MCH MCHC RDW Plt Count MPV Seg Neutrophils % Band Neutrophils % Lymphocytes % Monocytes % Eosinophils % Myelocytes % Neutrophils # Lymphocytes # Monocytes # Eosinophils # Platelet Estimate Immature Plt Fraction Hypochromasia ABG pH ABG pCO2 ABG pO2 ABG HCO3 ABG Total CO2 ABG O2 Saturation ABG Base Excess O2 Delivery Device Inspired O2 Sodium Potassium Chloride Carbon Dioxide BUN Creatinine Est GFR ( Amer) Est GFR (Non-Af Amer) BUN/Creatinine Ratio Glucose POC Glucose 83 Calculated Osmolality Lactic Acid Calcium Phosphorus Magnesium Total Bilirubin Direct Bilirubin AST ALT Alkaline Phosphatase Troponin I 0.04 H* Serum Total Protein Albumin Globulin Albumin/Globulin Ratio Lipase Urine Color Urine Clarity Urine pH Ur Specific [place] Urine Protein Urine Glucose (UA) Urine Ketones Urine Blood Urine Nitrite Urine Bilirubin Urine Urobilinogen Ur Leukocyte Esterase Urine Microscopic RBC Urine Microscopic WBC Ur Squamous Epith Cells Urine Bacteria Hyaline Casts Ur Culture Indicated? Stl C. cayetanensis PCR Stool Rotavirus A PCR Stl Adenov F 40 PCR Stool Astrovirus (PCR) Stool Campylobacter PCR Stl C. diff Tox A/B PCR Stool Cryptosporidium PCR Stl Sh Tox Pr E STEC PCR Stool E coli O157 PCR Stl Enterotoxigenic E PCR Stool EPEC (PCR) Stool EAEC (PCR) Stl E. histolytica PCR Stool Giardia Lamblia PCR Stool Salmonella PCR Stool Sapovirus (PCR) Stl P. shigelloides PCR Stl Shigella/EIEC PCR St Y.enterocolitica PCR Stool Vibrio (PCR) Stl Vibrio cholerae PCR Stl Norovirus GI/GII PCR Stl GI Panel (PCR) Com Random Vancomycin Chlamy pneumoniae PCR Adenovirus (PCR) B. pertussis DNA (PCR) B.parapertussis DNA PCR Coronavirus OC43 (PCR) Coronavirus HKU1 (PCR) Coronavirus 229E (PCR) Coronavirus NL63 (PCR) Human Metapneumovir PCR Influenza A (H1) PCR Influ A (H1N1/09) PCR Influenza A (H3) PCR Influenza A Untype (PCR) Influenza Type B (PCR) M.pneumoniae DNA (PCR) Parainfluenza 1 (PCR) Parainfluenza 2 (PCR) Parainfluenza 3 (PCR) Parainfluenza 4 (PCR) RSV (PCR) Entero/Rhino (PCR) Specimen Rejected Blood Type Antibody Screen - Impressions ITS Impressions Abdomen/Pelvis CT 03/01/18 08:31 IMPRESSION: 1. Stable to no significant interval change in size of left groin heterogeneous mixed high attenuation lesions versus collections. Findings could reflect abnormal adenopathy secondary to metastatic disease or lymphoma, however hematomas could also be a possibility in the appropriate clinical setting. Consider follow-up imaging to evaluate for any change or stability versus tissue sampling. 2. Interval resolution of right upper lobe ground-glass attenuation. 3. Inflammatory stranding and wall thickening involving the right colon suggestive of colitis. There is also mild wall thickening of the 2nd portion the duodenum which is nonspecific and could reflect duodenitis or peptic ulcer disease. 4. Anasarca with subcutaneous edema, increasing small to moderate pleural effusions as well as small volume ascites. 5. Bibasilar atelectasis. 6. There is mild perinephric stranding with mild urothelial thickening of the right renal collecting system. Recommend correlation with urinalysis. D/ / 03/01/2018 10:54:03 Denisse John MD / [facility] Interpreting Provider: Denisse John MD Chest CT 03/01/18 08:31 IMPRESSION: 1. Stable to no significant interval change in size of left groin heterogeneous mixed high attenuation lesions versus collections. Findings could reflect abnormal adenopathy secondary to metastatic disease or lymphoma, however hematomas could also be a possibility in the appropriate clinical setting. Consider follow-up imaging to evaluate for any change or stability versus tissue sampling. 2. Interval resolution of right upper lobe ground-glass attenuation. 3. Inflammatory stranding and wall thickening involving the right colon suggestive of colitis. There is also mild wall thickening of the 2nd portion the duodenum which is nonspecific and could reflect duodenitis or peptic ulcer disease. 4. Anasarca with subcutaneous edema, increasing small to moderate pleural effusions as well as small volume ascites. 5. Bibasilar atelectasis. 6. There is mild perinephric stranding with mild urothelial thickening of the right renal collecting system. Recommend correlation with urinalysis. D/ / 03/01/2018 10:54:03 Denisse John MD / [facility] Interpreting Provider: Denisse John MD Date of admission: 02/28/18 13:55 Primary care physician: Leta Akins MD Consults: 02/28/18 15:02 Consult to Nutrition [CONS] Routine Comment: Consulting Provider: NUTRITION Reason for Dietary Consult: PO Supplementation 02/28/18 21:13 Consult to Physician [CONS] Routine Consulting Provider: Jarred Garza Reason for Consult: ICU managmenet -- septic shock Call Completed: No - Patient Status Disposition: Transfer Other Condition: Fair Overall status at discharge: patient is not back to baseline - Discharge Instructions Follow Up With: Leta Akins MD [Primary Care Provider] - - Hospital Course Hospital course: Ms. Orellana is a 57 year old female that was a resident of [facility] and developed a fever of 103 so was transferred to [facility]. ED physician ordered blood cultures, urinalysis, CXR and EKG. CXR was concerning for LLL HCAP, so she was started on vancomycin and zosyn. The patient did not endorse any chest pain, but troponin was elevated at 0.04, EKG did not show evidence of ST elevation, so she was given ASA and transferred to the floor. Overnight, she became hypotensive, had a CVC placed, was started on levophed, and transferred to the ICU. She has also been complaining of some diarrhea, so a stool panel was performed that did not show evidence of an infectious cause. The patient requested transfer to [facility] since all of her doctors are there, so we performed a non-con CT Chest/Abd/ Pelvis and pushed the images to [facility]. She endorsed some RUQ pain on palpation, her ALT is WNL, AST is elevated at 141, lipase is normal at 51, and had a choleysysectomy in the past. She remained stable during her course in the ICU, and had no complaints. - Time Spent with Patient Total time spent providing and/or coordinating discharge services: 20m Less than 30 minutes Physical Examination Vital Signs: Vital Signs, Last 4 Hours Temp Pulse Resp BP Pulse Ox 03/01/18 10:00 100 22 106/60 100 03/01/18 09:52 18 97 03/01/18 09:00 98.8 F 03/01/18 08:23 99 03/01/18 08:00 98 24 108/62 99 General appearance: no acute distress Eyes: nonicteric ENT: oropharynx moist Neck: supple Effort: normal Inspection: normal Auscultation: bilateral: clear Cardiovascular: regular rate and rhythm Gastrointestinal: normoactive bowel sounds Integumentary: normal Extremities: no cyanosis, no edema normal mental status mood appropriate, affect normal <Jarred Garza W - Last Filed: 03/01/18 14:46> Orders not resulted at time of discharge: Pending orders 03/01/18 08:31 Ionized Calcium,venous blood Stat Date of Encounter: 03/01/18 Labs on day of discharge: Labs from last 24 hours 03/01/18 03/01/18 03/01/18 07:52 06:26 05:35 WBC RBC Hgb Hct MCV MCH MCHC RDW Plt Count MPV Seg Neutrophils % Band Neutrophils % Lymphocytes % Monocytes % Eosinophils % Myelocytes % Neutrophils # Lymphocytes # Monocytes # Eosinophils # Platelet Estimate Immature Plt Fraction Hypochromasia ABG pH ABG pCO2 ABG pO2 ABG HCO3 ABG Total CO2 ABG O2 Saturation ABG Base Excess O2 Delivery Device Inspired O2 Sodium Potassium Chloride Carbon Dioxide BUN Creatinine Est GFR ( Amer) Est GFR (Non-Af Amer) BUN/Creatinine Ratio Glucose POC Glucose 236 H Calculated Osmolality Lactic Acid 2.1 Calcium Phosphorus Magnesium Total Bilirubin Direct Bilirubin AST ALT Alkaline Phosphatase Troponin I Serum Total Protein Albumin Globulin Albumin/Globulin Ratio Lipase Urine Color Urine Clarity Urine pH Ur Specific [place] Urine Protein Urine Glucose (UA) Urine Ketones Urine Blood Urine Nitrite Urine Bilirubin Urine Urobilinogen Ur Leukocyte Esterase Urine Microscopic RBC Urine Microscopic WBC Ur Squamous Epith Cells Urine Bacteria Hyaline Casts Ur Culture Indicated? Stl C. cayetanensis PCR Stool Rotavirus A PCR Stl Adenov F PCR Stool Astrovirus (PCR) Stool Campylobacter PCR Stl C. diff Tox A/B PCR Stool Cryptosporidium PCR Stl Sh Tox Pr E STEC PCR Stool E coli O157 PCR Stl Enterotoxigenic E PCR Stool EPEC (PCR) Stool EAEC (PCR) Stl E. histolytica PCR Stool Giardia Lamblia PCR Stool Salmonella PCR Stool Sapovirus (PCR) Stl P. shigelloides PCR Stl Shigella/EIEC PCR St Y.enterocolitica PCR Stool Vibrio (PCR) Stl Vibrio cholerae PCR Stl Norovirus GI/GII PCR Stl GI Panel (PCR) Com Random Vancomycin Chlamy pneumoniae PCR Not Detected Adenovirus (PCR) Not Detected B. pertussis DNA (PCR) Not Detected B.parapertussis DNA PCR Not Detected Coronavirus OC43 (PCR) Not Detected Coronavirus HKU1 (PCR) Not Detected Coronavirus 229E (PCR) Not Detected Coronavirus NL63 (PCR) Not Detected Human Metapneumovir PCR Not Detected Influenza A (H1) PCR Not Detected Influ A (H1N1/09) PCR Not Detected Influenza A (H3) PCR Not Detected Influenza A Untype (PCR) Not Detected Influenza Type B (PCR) Not Detected M.pneumoniae DNA (PCR) Not Detected Parainfluenza 1 (PCR) Not Detected Parainfluenza 2 (PCR) Not Detected Parainfluenza 3 (PCR) Not Detected Parainfluenza 4 (PCR) Not Detected RSV (PCR) Not Detected Entero/Rhino (PCR) Not Detected Specimen Rejected Blood Type Antibody Screen 03/01/18 03/01/18 03/01/18 05:35 05:35 05:35 WBC RBC Hgb Hct MCV MCH MCHC RDW Plt Count MPV Seg Neutrophils % Band Neutrophils % Lymphocytes % Monocytes % Eosinophils % Myelocytes % Neutrophils # Lymphocytes # Monocytes # Eosinophils # Platelet Estimate Immature Plt Fraction Hypochromasia ABG pH ABG pCO2 ABG pO2 ABG HCO3 ABG Total CO2 ABG O2 Saturation ABG Base Excess O2 Delivery Device Inspired O2 Sodium 138 Potassium 4.1 D Chloride 113 H Carbon Dioxide 12 L BUN 45 H Creatinine 4.29 H Est GFR ( Amer) 13 L Est GFR (Non-Af Amer) 11 L BUN/Creatinine Ratio 10 Glucose 263 H POC Glucose Calculated Osmolality 307 H Lactic Acid Calcium 5.9 L* Phosphorus 4.0 Magnesium 1.6 Total Bilirubin 1.6 H Direct Bilirubin 1.2 H AST 141 H ALT 42 Alkaline Phosphatase 286 H Troponin I 0.07 H* Serum Total Protein 3.5 L Albumin 1.9 L Globulin 1.6 L Albumin/Globulin Ratio 1.2 Lipase 51 Urine Color Urine Clarity Urine pH Ur Specific [place] Urine Protein Urine Glucose (UA) Urine Ketones Urine Blood Urine Nitrite Urine Bilirubin Urine Urobilinogen Ur Leukocyte Esterase Urine Microscopic RBC Urine Microscopic WBC Ur Squamous Epith Cells Urine Bacteria Hyaline Casts Ur Culture Indicated? Stl C. cayetanensis PCR Stool Rotavirus A PCR Stl Adenov F 40/41 PCR Stool Astrovirus (PCR) Stool Campylobacter PCR Stl C. diff Tox A/B PCR Stool Cryptosporidium PCR Stl Sh Tox Pr E STEC PCR Stool E coli O157 PCR Stl Enterotoxigenic E PCR Stool EPEC (PCR) Stool EAEC (PCR) Stl E. histolytica PCR Stool Giardia Lamblia PCR Stool Salmonella PCR Stool Sapovirus (PCR) Stl P. shigelloides PCR Stl Shigella/EIEC PCR St Y.enterocolitica PCR Stool Vibrio (PCR) Stl Vibrio cholerae PCR Stl Norovirus GI/GII PCR Stl GI Panel (PCR) Com Random Vancomycin 24 Chlamy pneumoniae PCR Adenovirus (PCR) B. pertussis DNA (PCR) B.parapertussis DNA PCR Coronavirus OC43 (PCR) Coronavirus HKU1 (PCR) Coronavirus 229E (PCR) Coronavirus NL63 (PCR) Human Metapneumovir PCR Influenza A (H1) PCR Influ A (H1N1/09) PCR Influenza A (H3) PCR Influenza A Untype (PCR) Influenza Type B (PCR) M.pneumoniae DNA (PCR) Parainfluenza 1 (PCR) Parainfluenza 2 (PCR) Parainfluenza 3 (PCR) Parainfluenza 4 (PCR) RSV (PCR) Entero/Rhino (PCR) Specimen Rejected Blood Type Antibody Screen 03/01/18 03/01/18 03/01/18 05:35 04:24 02:15 WBC 1.9 L RBC 2.88 L Hgb 7.1 L D Hct 22.3 L MCV 77.4 L MCH 24.7 L MCHC 31.8 RDW 19.7 H Plt Count 93 L MPV 11.0 Seg Neutrophils % 52.0 Band Neutrophils % 18.0 H Lymphocytes % 14.0 Monocytes % 6.0 Eosinophils % 8.0 Myelocytes % 2.0 H Neutrophils # 1.3 L Lymphocytes # 0.3 L Monocytes # 0.1 Eosinophils # 0.2 Platelet Estimate Decreased L Immature Plt Fraction 5.0 Hypochromasia Present A ABG pH ABG pCO2 ABG pO2 ABG HCO3 ABG Total CO2 ABG O2 Saturation ABG Base Excess O2 Delivery Device Inspired O2 Sodium Potassium Chloride Carbon Dioxide BUN Creatinine Est GFR ( Amer) Est GFR (Non-Af Amer) BUN/Creatinine Ratio Glucose POC Glucose 226 H Calculated Osmolality Lactic Acid Calcium Phosphorus Magnesium Total Bilirubin Direct Bilirubin AST ALT Alkaline Phosphatase Troponin I 0.07 H* Serum Total Protein Albumin Globulin Albumin/Globulin Ratio Lipase Urine Color Urine Clarity Urine pH Ur Specific [place] Urine Protein Urine Glucose (UA) Urine Ketones Urine Blood Urine Nitrite Urine Bilirubin Urine Urobilinogen Ur Leukocyte Esterase Urine Microscopic RBC Urine Microscopic WBC Ur Squamous Epith Cells Urine Bacteria Hyaline Casts Ur Culture Indicated? Stl C. cayetanensis PCR Stool Rotavirus A PCR Stl Adenov F 40/41 PCR Stool Astrovirus (PCR) Stool Campylobacter PCR Stl C. diff Tox A/B PCR Stool Cryptosporidium PCR Stl Sh Tox Pr E STEC PCR Stool E coli O157 PCR Stl Enterotoxigenic E PCR Stool EPEC (PCR) Stool EAEC (PCR) Stl E. histolytica PCR Stool Giardia Lamblia PCR Stool Salmonella PCR Stool Sapovirus (PCR) Stl P. shigelloides PCR Stl Shigella/EIEC PCR St Y.enterocolitica PCR Stool Vibrio (PCR) Stl Vibrio cholerae PCR Stl Norovirus GI/GII PCR Stl GI Panel (PCR) Com Random Vancomycin Chlamy pneumoniae PCR Adenovirus (PCR) B. pertussis DNA (PCR) B.parapertussis DNA PCR Coronavirus OC43 (PCR) Coronavirus HKU1 (PCR) Coronavirus 229E (PCR) Coronavirus NL63 (PCR) Human Metapneumovir PCR Influenza A (H1) PCR Influ A (H1N1/09) PCR Influenza A (H3) PCR Influenza A Untype (PCR) Influenza Type B (PCR) M.pneumoniae DNA (PCR) Parainfluenza 1 (PCR) Parainfluenza 2 (PCR) Parainfluenza 3 (PCR) Parainfluenza 4 (PCR) RSV (PCR) Entero/Rhino (PCR) Specimen Rejected Blood Type Antibody Screen 03/01/18 03/01/18 03/01/18 01:40 00:15 00:08 WBC RBC Hgb Hct MCV MCH MCHC RDW Plt Count MPV Seg Neutrophils % Band Neutrophils % Lymphocytes % Monocytes % Eosinophils % Myelocytes % Neutrophils # Lymphocytes # Monocytes # Eosinophils # Platelet Estimate Immature Plt Fraction Hypochromasia ABG pH ABG pCO2 ABG pO2 ABG HCO3 ABG Total CO2 ABG O2 Saturation ABG Base Excess O2 Delivery Device Inspired O2 Sodium Potassium Chloride Carbon Dioxide BUN Creatinine Est GFR ( Amer) Est GFR (Non-Af Amer) BUN/Creatinine Ratio Glucose POC Glucose 145 H Calculated Osmolality Lactic Acid 2.6 H Calcium Phosphorus Magnesium Total Bilirubin Direct Bilirubin AST ALT Alkaline Phosphatase Troponin I Serum Total Protein Albumin Globulin Albumin/Globulin Ratio Lipase Urine Color Urine Clarity Urine pH Ur Specific [place] Urine Protein Urine Glucose (UA) Urine Ketones Urine Blood Urine Nitrite Urine Bilirubin Urine Urobilinogen Ur Leukocyte Esterase Urine Microscopic RBC Urine Microscopic WBC Ur Squamous Epith Cells Urine Bacteria Hyaline Casts Ur Culture Indicated? Stl C. cayetanensis PCR Not detected Stool Rotavirus A PCR Not detected Stl Adenov F 40/41 PCR Not detected Stool Astrovirus (PCR) Not detected Stool Campylobacter PCR Not detected Stl C. diff Tox A/B PCR Not detected Stool Cryptosporidium PCR Not detected Stl Sh Tox Pr E STEC PCR Not detected Stool E coli O157 PCR Not detected Stl Enterotoxigenic E PCR Not detected Stool EPEC (PCR) Not detected Stool EAEC (PCR) Not detected Stl E. histolytica PCR Not detected Stool Giardia Lamblia PCR Not detected Stool Salmonella PCR Not detected Stool Sapovirus (PCR) Not detected Stl P. shigelloides PCR Not detected Stl Shigella/EIEC PCR Not detected St Y.enterocolitica PCR Not detected Stool Vibrio (PCR) Not detected Stl Vibrio cholerae PCR Not detected Stl Norovirus GI/GII PCR Not detected Stl GI Panel (PCR) Com See below Random Vancomycin Chlamy pneumoniae PCR Adenovirus (PCR) B. pertussis DNA (PCR) B.parapertussis DNA PCR Coronavirus OC43 (PCR) Coronavirus HKU1 (PCR) Coronavirus 229E (PCR) Coronavirus NL63 (PCR) Human Metapneumovir PCR Influenza A (H1) PCR Influ A (H1N1) PCR Influenza A (H3) PCR Influenza A Untype (PCR) Influenza Type B (PCR) M.pneumoniae DNA (PCR) Parainfluenza 1 (PCR) Parainfluenza 2 (PCR) Parainfluenza 3 (PCR) Parainfluenza 4 (PCR) RSV (PCR) Entero/Rhino (PCR) Specimen Rejected Blood Type Antibody Screen 02/28/18 02/28/18 02/28/18 22:53 21:53 21:53 WBC RBC Hgb Hct MCV MCH MCHC RDW Plt Count MPV Seg Neutrophils % Band Neutrophils % Lymphocytes % Monocytes % Eosinophils % Myelocytes % Neutrophils # Lymphocytes # Monocytes # Eosinophils # Platelet Estimate Immature Plt Fraction Hypochromasia ABG pH 7.29 L ABG pCO2 27 L ABG pO2 63 L ABG HCO3 13 L ABG Total CO2 14 L ABG O2 Saturation 90 L ABG Base Excess -12 L O2 Delivery Device Cannula Inspired O2 6.0 Sodium Potassium Chloride Carbon Dioxide BUN Creatinine Est GFR ( Amer) Est GFR (Non-Af Amer) BUN/Creatinine Ratio Glucose POC Glucose Calculated Osmolality Lactic Acid 3.9 H Calcium Phosphorus Magnesium Total Bilirubin Direct Bilirubin AST ALT Alkaline Phosphatase Troponin I Serum Total Protein Albumin Globulin Albumin/Globulin Ratio Lipase Urine Color Urine Clarity Urine pH Ur Specific [place] Urine Protein Urine Glucose (UA) Urine Ketones Urine Blood Urine Nitrite Urine Bilirubin Urine Urobilinogen Ur Leukocyte Esterase Urine Microscopic RBC Urine Microscopic WBC Ur Squamous Epith Cells Urine Bacteria Hyaline Casts Ur Culture Indicated? Stl C. cayetanensis PCR Stool Rotavirus A PCR Stl Adenov F 40 PCR Stool Astrovirus (PCR) Stool Campylobacter PCR Stl C. diff Tox A/B PCR Stool Cryptosporidium PCR Stl Sh Tox Pr E STEC PCR Stool E coli O157 PCR Stl Enterotoxigenic E PCR Stool EPEC (PCR) Stool EAEC (PCR) Stl E. histolytica PCR Stool Giardia Lamblia PCR Stool Salmonella PCR Stool Sapovirus (PCR) Stl P. shigelloides PCR Stl Shigella/EIEC PCR St Y.enterocolitica PCR Stool Vibrio (PCR) Stl Vibrio cholerae PCR Stl Norovirus GI/GII PCR Stl GI Panel (PCR) Com Random Vancomycin Chlamy pneumoniae PCR Adenovirus (PCR) B. pertussis DNA (PCR) B.parapertussis DNA PCR Coronavirus OC43 (PCR) Coronavirus HKU1 (PCR) Coronavirus 229E (PCR) Coronavirus NL63 (PCR) Human Metapneumovir PCR Influenza A (H1) PCR Influ A (H1N1/09) PCR Influenza A (H3) PCR Influenza A Untype (PCR) Influenza Type B (PCR) M.pneumoniae DNA (PCR) Parainfluenza 1 (PCR) Parainfluenza 2 (PCR) Parainfluenza 3 (PCR) Parainfluenza 4 (PCR) RSV (PCR) Entero/Rhino (PCR) Specimen Rejected Blood Type O POSITIVE Antibody Screen NEGATIVE 02/28/18 02/28/18 02/28/18 21:33 21:30 20:08 WBC RBC Hgb 8.9 L Hct 29.3 L MCV MCH MCHC RDW Plt Count MPV Seg Neutrophils % Band Neutrophils % Lymphocytes % Monocytes % Eosinophils % Myelocytes % Neutrophils # Lymphocytes # Monocytes # Eosinophils # Platelet Estimate Immature Plt Fraction Hypochromasia ABG pH ABG pCO2 ABG pO2 ABG HCO3 ABG Total CO2 ABG O2 Saturation ABG Base Excess O2 Delivery Device Inspired O2 Sodium Potassium Chloride Carbon Dioxide BUN Creatinine Est GFR ( Amer) Est GFR (Non-Af Amer) BUN/Creatinine Ratio Glucose POC Glucose 72 86 Calculated Osmolality Lactic Acid Calcium Phosphorus Magnesium Total Bilirubin Direct Bilirubin AST ALT Alkaline Phosphatase Troponin I Serum Total Protein Albumin Globulin Albumin/Globulin Ratio Lipase Urine Color Urine Clarity Urine pH Ur Specific [place] Urine Protein Urine Glucose (UA) Urine Ketones Urine Blood Urine Nitrite Urine Bilirubin Urine Urobilinogen Ur Leukocyte Esterase Urine Microscopic RBC Urine Microscopic WBC Ur Squamous Epith Cells Urine Bacteria Hyaline Casts Ur Culture Indicated? Stl C. cayetanensis PCR Stool Rotavirus A PCR Stl Adenov F 40/41 PCR Stool Astrovirus (PCR) Stool Campylobacter PCR Stl C. diff Tox A/B PCR Stool Cryptosporidium PCR Stl Sh Tox Pr E STEC PCR Stool E coli O157 PCR Stl Enterotoxigenic E PCR Stool EPEC (PCR) Stool EAEC (PCR) Stl E. histolytica PCR Stool Giardia Lamblia PCR Stool Salmonella PCR Stool Sapovirus (PCR) Stl P. shigelloides PCR Stl Shigella/EIEC PCR St Y.enterocolitica PCR Stool Vibrio (PCR) Stl Vibrio cholerae PCR Stl Norovirus GI/GII PCR Stl GI Panel (PCR) Com Random Vancomycin Chlamy pneumoniae PCR Adenovirus (PCR) B. pertussis DNA (PCR) B.parapertussis DNA PCR Coronavirus OC43 (PCR) Coronavirus HKU1 (PCR) Coronavirus 229E (PCR) Coronavirus NL63 (PCR) Human Metapneumovir PCR Influenza A (H1) PCR Influ A (H1N1/) PCR Influenza A (H3) PCR Influenza A Untype (PCR) Influenza Type B (PCR) M.pneumoniae DNA (PCR) Parainfluenza 1 (PCR) Parainfluenza 2 (PCR) Parainfluenza 3 (PCR) Parainfluenza 4 (PCR) RSV (PCR) Entero/Rhino (PCR) Specimen Rejected Blood Type Antibody Screen 02/28/18 02/28/18 02/28/18 19:36 19:00 18:55 WBC RBC Hgb Hct MCV MCH MCHC RDW Plt Count MPV Seg Neutrophils % Band Neutrophils % Lymphocytes % Monocytes % Eosinophils % Myelocytes % Neutrophils # Lymphocytes # Monocytes # Eosinophils # Platelet Estimate Immature Plt Fraction Hypochromasia ABG pH ABG pCO2 ABG pO2 ABG HCO3 ABG Total CO2 ABG O2 Saturation ABG Base Excess O2 Delivery Device Inspired O2 Sodium Potassium Chloride Carbon Dioxide BUN Creatinine Est GFR ( Amer) Est GFR (Non-Af Amer) BUN/Creatinine Ratio Glucose POC Glucose 63 L Calculated Osmolality Lactic Acid Calcium Phosphorus Magnesium Total Bilirubin Direct Bilirubin AST ALT Alkaline Phosphatase Troponin I Serum Total Protein Albumin Globulin Albumin/Globulin Ratio Lipase Urine Color Yellow Urine Clarity Cloudy A Urine pH 7.0 Ur Specific [place] 1.009 L Urine Protein >=300 H Urine Glucose (UA) Normal Urine Ketones Negative Urine Blood Trace H Urine Nitrite Negative Urine Bilirubin Negative Urine Urobilinogen Normal Ur Leukocyte Esterase Negative Urine Microscopic RBC 3-5 H Urine Microscopic WBC 5-15 H Ur Squamous Epith Cells Many H Urine Bacteria None Seen Hyaline Casts Few Ur Culture Indicated? NO Stl C. cayetanensis PCR Stool Rotavirus A PCR Stl Adenov F 40/ PCR Stool Astrovirus (PCR) Stool Campylobacter PCR Stl C. diff Tox A/B PCR Stool Cryptosporidium PCR Stl Sh Tox Pr E STEC PCR Stool E coli O157 PCR Stl Enterotoxigenic E PCR Stool EPEC (PCR) Stool EAEC (PCR) Stl E. histolytica PCR Stool Giardia Lamblia PCR Stool Salmonella PCR Stool Sapovirus (PCR) Stl P. shigelloides PCR Stl Shigella/EIEC PCR St Y.enterocolitica PCR Stool Vibrio (PCR) Stl Vibrio cholerae PCR Stl Norovirus GI/GII PCR Stl GI Panel (PCR) Com Random Vancomycin Chlamy pneumoniae PCR Adenovirus (PCR) B. pertussis DNA (PCR) B.parapertussis DNA PCR Coronavirus OC43 (PCR) Coronavirus HKU1 (PCR) Coronavirus 229E (PCR) Coronavirus NL63 (PCR) Human Metapneumovir PCR Influenza A (H1) PCR Influ A (H1N1/09) PCR Influenza A (H3) PCR Influenza A Untype (PCR) Influenza Type B (PCR) M.pneumoniae DNA (PCR) Parainfluenza 1 (PCR) Parainfluenza 2 (PCR) Parainfluenza 3 (PCR) Parainfluenza 4 (PCR) RSV (PCR) Entero/Rhino (PCR) Specimen Rejected Not Liquid Blood Type Antibody Screen 02/28/18 02/28/18 17:43 15:11 WBC RBC Hgb Hct MCV MCH MCHC RDW Plt Count MPV Seg Neutrophils % Band Neutrophils % Lymphocytes % Monocytes % Eosinophils % Myelocytes % Neutrophils # Lymphocytes # Monocytes # Eosinophils # Platelet Estimate Immature Plt Fraction Hypochromasia ABG pH ABG pCO2 ABG pO2 ABG HCO3 ABG Total CO2 ABG O2 Saturation ABG Base Excess O2 Delivery Device Inspired O2 Sodium Potassium Chloride Carbon Dioxide BUN Creatinine Est GFR ( Amer) Est GFR (Non-Af Amer) BUN/Creatinine Ratio Glucose POC Glucose 83 Calculated Osmolality Lactic Acid Calcium Phosphorus Magnesium Total Bilirubin Direct Bilirubin AST ALT Alkaline Phosphatase Troponin I 0.04 H* Serum Total Protein Albumin Globulin Albumin/Globulin Ratio Lipase Urine Color Urine Clarity Urine pH Ur Specific [place] Urine Protein Urine Glucose (UA) Urine Ketones Urine Blood Urine Nitrite Urine Bilirubin Urine Urobilinogen Ur Leukocyte Esterase Urine Microscopic RBC Urine Microscopic WBC Ur Squamous Epith Cells Urine Bacteria Hyaline Casts Ur Culture Indicated? Stl C. cayetanensis PCR Stool Rotavirus A PCR Stl Adenov F 40/41 PCR Stool Astrovirus (PCR) Stool Campylobacter PCR Stl C. diff Tox A/B PCR Stool Cryptosporidium PCR Stl Sh Tox Pr E STEC PCR Stool E coli O157 PCR Stl Enterotoxigenic E PCR Stool EPEC (PCR) Stool EAEC (PCR) Stl E. histolytica PCR Stool Giardia Lamblia PCR Stool Salmonella PCR Stool Sapovirus (PCR) Stl P. shigelloides PCR Stl Shigella/EIEC PCR St Y.enterocolitica PCR Stool Vibrio (PCR) Stl Vibrio cholerae PCR Stl Norovirus GI/GII PCR Stl GI Panel (PCR) Com Random Vancomycin Chlamy pneumoniae PCR Adenovirus (PCR) B. pertussis DNA (PCR) B.parapertussis DNA PCR Coronavirus OC43 (PCR) Coronavirus HKU1 (PCR) Coronavirus 229E (PCR) Coronavirus NL63 (PCR) Human Metapneumovir PCR Influenza A (H1) PCR Influ A (H1N1/09) PCR Influenza A (H3) PCR Influenza A Untype (PCR) Influenza Type B (PCR) M.pneumoniae DNA (PCR) Parainfluenza 1 (PCR) Parainfluenza 2 (PCR) Parainfluenza 3 (PCR) Parainfluenza 4 (PCR) RSV (PCR) Entero/Rhino (PCR) Specimen Rejected Blood Type Antibody Screen - Impressions ITS Impressions Abdomen/Pelvis CT 03/01/18 08:31 IMPRESSION: 1. Stable to no significant interval change in size of left groin heterogeneous mixed high attenuation lesions versus collections. Findings could reflect abnormal adenopathy secondary to metastatic disease or lymphoma, however hematomas could also be a possibility in the appropriate clinical setting. Consider follow-up imaging to evaluate for any change or stability versus tissue sampling. 2. Interval resolution of right upper lobe ground-glass attenuation. 3. Inflammatory stranding and wall thickening involving the right colon suggestive of colitis. There is also mild wall thickening of the 2nd portion the duodenum which is nonspecific and could reflect duodenitis or peptic ulcer disease. 4. Anasarca with subcutaneous edema, increasing small to moderate pleural effusions as well as small volume ascites. 5. Bibasilar atelectasis. 6. There is mild perinephric stranding with mild urothelial thickening of the right renal collecting system. Recommend correlation with urinalysis. D/ / 03/01/2018 10:54:03 Denisse John MD / destini Interpreting Provider: Denisse John MD Chest CT 03/01/18 08:31 IMPRESSION: 1. Stable to no significant interval change in size of left groin heterogeneous mixed high attenuation lesions versus collections. Findings could reflect abnormal adenopathy secondary to metastatic disease or lymphoma, however hematomas could also be a possibility in the appropriate clinical setting. Consider follow-up imaging to evaluate for any change or stability versus tissue sampling. 2. Interval resolution of right upper lobe ground-glass attenuation. 3. Inflammatory stranding and wall thickening involving the right colon suggestive of colitis. There is also mild wall thickening of the 2nd portion the duodenum which is nonspecific and could reflect duodenitis or peptic ulcer disease. 4. Anasarca with subcutaneous edema, increasing small to moderate pleural effusions as well as small volume ascites. 5. Bibasilar atelectasis. 6. There is mild perinephric stranding with mild urothelial thickening of the right renal collecting system. Recommend correlation with urinalysis. D/ / 03/01/2018 10:54:03 Denisse John MD / destini Interpreting Provider: Denisse John MD Date of admission: 02/28/18 13:55 Primary care physician: Leta Akins MD Consults: 02/28/18 15:02 Consult to Nutrition [CONS] Routine Comment: Consulting Provider: NUTRITION Reason for Dietary Consult: PO Supplementation 02/28/18 21:13 Consult to Physician [CONS] Routine Consulting Provider: Jarred Garza Reason for Consult: ICU managmenet -- septic shock Call Completed: No - Hospital Course Hospital course: Ms. Orellana is a 57 year old female - Time Spent with Patient Total time spent providing and/or coordinating discharge services: - Attending Attestation I examined this patient and my medical decision-making was reviewed with the Resident Physician. I agree with the documented findings, disposition and treatment plan as described except to the extent set forth below. [facility] transfer per patient's request after stabilizing for septic shock
[2018-03-02] MEDS ORDERED: Levofloxacin 500 MG/100 ML 500 MG/100 ML BAG IVPB SCH (14:00)
--- NOTE | 2018-03-02 17:22 | Electrocardiograph Report ---
[address] [address] Test Date: 2018-03-01 Pat Name: Abril Orellana Department: 112 Room: [facility] Gender: F Master Chef: : 1960 Requested By: Bashir Busby Order Number: [id number] Reading MD: Laverne Blue Measurements Intervals [place] Rate: 133 P: 54 CT: 166 QRS: 94 QRSD: 77 T: 79 QT: 368 QTc: 446 Interpretive Statements CONSIDER SINUS TACHYCARDIA BORDERLINE RIGHT AXIS DEVIATION LOW QRS VOLTAGE IN PRECORDIAL LEADS NONSPECIFIC ST-WAVE ABNORMALITY ABNORMAL RHYTHM ECG Electronically Signed On 03-02-2018 17:20:22 EDT by Laverne Blue
== END 2018-03-01 10:30 | disposition other institution (70) | DRG 871 ==
LOC: EMEROOARM 11:13 → 2NENU 11:13 → ICNU 21:39
PROVIDERS: ADMIT Internal Medicine; ATTEND Internal Medicine